=== PATIENT | male | born 1980 | race Caucasian/White ===

== ENCOUNTER 2016-08-02 17:47 | Emergency (ER) | payer OTHER ==
--- NOTE | 2016-08-02 18:17 | ED ---
General Adult HPI - General Chief complaint: Chest Pain Stated complaint: Chest Pain Time Seen by Provider: 08/02/16 17:57 Source: patient, RN notes reviewed, old records reviewed Mode of arrival: wheelchair Limitations: no limitations - History of Present Illness Initial comments: This is a 36-year-old male to the ER for evaluation.Patient presents here for evaluation of chest pain. Patient has nonspecific chest pain, history of chest pain with no history of heart disease. No high blood pressure patient does have high cholesterol and diabetes. Nonsmoker, history of having a prior prior similar event had a stress test which was negative. Patient does admit to eating cake before coming in the ER. Note sugar has been elevated. Patient denies chest pain/shortness of breath. No fever - Related Data Home Medications Medication Instructions Recorded Confirmed Albuterol Inhaler [Ventolin Hfa 2 puff INHALATION RT-Q6H PRN 05/21/15 08/02/16 Inhaler] Mometasone Inhalr 220 Mcg/Puff 1 puff INHALATION RT-DAILY 05/22/15 08/02/16 [Asmanex] Methocarbamol [Robaxin] 750 mg PO BID PRN 11/20/15 08/02/16 Naproxen [Naproxen] 500 mg PO BID PRN 11/20/15 08/02/16 metFORMIN HCL 1,000 mg PO BID 04/08/16 08/02/16 glipiZIDE [Glucotrol] 10 mg PO AC-BID 08/02/16 08/02/16 Allergies Allergy/AdvReac Type Severity Reaction Status Date / Time codeine AdvReac Nausea & Verified 08/02/16 19:08 Vomiting propoxyphene napsylate AdvReac Anaphylaxis Verified 08/02/16 19:08 [From Darvocet-N 100] Review of Systems ROS Statement: Those systems with pertinent positive or pertinent negative responses have been documented in the HPI. ROS Other: All systems not noted in ROS Statement are negative. Past Medical History Past Medical History: Asthma, Diabetes Mellitus, Hyperlipidemia, Syncope Additional Past Medical History / Comment(s): ring cut left finger and got infection of mrsa History of Any Multi-Drug Resistant Organisms: MRSA Date of last positivie culture/infection: 2007 MDRO Source:: right leg, right arm, right knee Additional Past Surgical History / Comment(s): Bilateral eye lasik, wisdom teeth , Past Psychological History: Anxiety, Depression Smoking Status: Former smoker Past Alcohol Use History: None Reported Past Drug Use History: None Reported General Exam Limitations: no limitations General appearance: alert, in no apparent distress Head exam: Present: atraumatic, normocephalic, normal inspection Eye exam: Present: normal appearance, PERRL, EOMI. Absent: scleral icterus, conjunctival injection, periorbital swelling ENT exam: Present: normal exam, mucous membranes moist Neck exam: Present: normal inspection. Absent: tenderness, meningismus, lymphadenopathy Respiratory exam: Present: normal lung sounds bilaterally. Absent: respiratory distress, wheezes, rales, rhonchi, stridor Cardiovascular Exam: Present: regular rate, normal rhythm, normal heart sounds. Absent: systolic murmur, diastolic murmur, rubs, gallop, clicks GI/Abdominal exam: Present: soft, normal bowel sounds. Absent: distended, tenderness, guarding, rebound, rigid Extremities exam: Present: normal inspection, full ROM, normal capillary refill. Absent: tenderness, pedal edema, joint swelling, calf tenderness Back exam: Present: normal inspection Neurological exam: Present: alert, oriented X3, CN II-XII intact Psychiatric exam: Present: normal affect, normal mood Skin exam: Present: warm, dry, intact, normal color. Absent: rash Course Vital Signs 08/02/16 08/02/16 17:53 18:27 Temperature 98.1 F Pulse Rate 78 74 Respiratory 20 20 Rate Blood Pressure 124/92 130/72 O2 Sat by Pulse 99 98 Oximetry - Reevaluation(s) Reevaluation #1: 08/02/16 19:41 patient denies cp at this time EKG Findings - EKG Comments: EKG Findings:: EKG shows normal sinus rhythm at 71, AR 170, QRS 102, QTC 4:30 Medical Decision Making - Medical Decision Making 36 male to the ER of the year with nonspecific chest pain. History of diabetes elevated blood sugar, sugar corrected with IV fluid at this time. No specific chest at this time. No nausea vomiting, and no shortness of breath. Patient's EKG and troponin are negative and will be discharged home - Lab Data Result diagrams: 08/02/16 18:10 08/02/16 18:10 Lab Results 08/02/16 08/02/16 08/02/16 Range/Units 18:10 18:10 18:10 WBC 6.4 (3.8-10.6) k/uL RBC 5.54 (4.30-5.90) m/uL Hgb 16.9 (13.0-17.5) gm/dL Hct 48.3 (39.0-53.0) % MCV 87.2 (80.0-100.0) fL MCH 30.5 (25.0-35.0) pg MCHC 35.0 (31.0-37.0) g/dL RDW 12.7 (11.5-15.5) % Plt Count 225 (150-450) k/uL Neutrophils % 47 % Lymphocytes % 43 % Monocytes % 5 % Eosinophils % 1 % Basophils % 1 % Neutrophils # 3.0 (1.3-7.7) k/uL Lymphocytes # 2.8 (1.0-4.8) k/uL Monocytes # 0.3 (0-1.0) k/uL Eosinophils # 0.1 (0-0.7) k/uL Basophils # 0.1 (0-0.2) k/uL PT (9.0-12.0) sec INR (<1.1) APTT (22.0-30.0) sec Sodium 138 (137-145) mmol/L Potassium 4.6 (3.5-5.1) mmol/L Chloride 101 (98-107) mmol/L Carbon Dioxide 25 (22-30) mmol/L Anion Gap 12 mmol/L BUN 13 (9-20) mg/dL Creatinine 0.80 (0.66-1.25) mg/dL Est GFR (MDRD) Af Amer >60 (>60 ml/min/1.73 sqM) Est GFR (MDRD) Non-Af >60 (>60 ml/min/1.73 sqM) Glucose 416 H (74-99) mg/dL Calcium 10.1 (8.4-10.2) mg/dL Magnesium 1.8 (1.6-2.3) mg/dL Total Bilirubin 0.9 (0.2-1.3) mg/dL AST 36 (17-59) U/L ALT 52 (21-72) U/L Alkaline Phosphatase 69 (38-126) U/L Total Creatine Kinase 53 L (55-170) U/L CK-MB (CK-2) 0.4 (0.0-2.4) ng/mL CK-MB (CK-2) Rel Index 0.8 Troponin I <0.012 (0.000-0.034) ng/mL Total Protein 7.6 (6.3-8.2) g/dL Albumin 4.3 (3.5-5.0) g/dL Lipase 174 (23-300) U/L 08/02/16 Range/Units 18:10 WBC (3.8-10.6) k/uL RBC (4.30-5.90) m/uL Hgb (13.0-17.5) gm/dL Hct (39.0-53.0) % MCV (80.0-100.0) fL MCH (25.0-35.0) pg MCHC (31.0-37.0) g/dL RDW (11.5-15.5) % Plt Count (150-450) k/uL Neutrophils % % Lymphocytes % % Monocytes % % Eosinophils % % Basophils % % Neutrophils # (1.3-7.7) k/uL Lymphocytes # (1.0-4.8) k/uL Monocytes # (0-1.0) k/uL Eosinophils # (0-0.7) k/uL Basophils # (0-0.2) k/uL PT 10.7 (9.0-12.0) sec INR 1.1 (<1.1) APTT 24.0 (22.0-30.0) sec Sodium (137-145) mmol/L Potassium (3.5-5.1) mmol/L Chloride (98-107) mmol/L Carbon Dioxide (22-30) mmol/L Anion Gap mmol/L BUN (9-20) mg/dL Creatinine (0.66-1.25) mg/dL Est GFR (MDRD) Af Amer (>60 ml/min/1.73 sqM) Est GFR (MDRD) Non-Af (>60 ml/min/1.73 sqM) Glucose (74-99) mg/dL Calcium (8.4-10.2) mg/dL Magnesium (1.6-2.3) mg/dL Total Bilirubin (0.2-1.3) mg/dL AST (17-59) U/L ALT (21-72) U/L Alkaline Phosphatase (38-126) U/L Total Creatine Kinase (55-170) U/L CK-MB (CK-2) (0.0-2.4) ng/mL CK-MB (CK-2) Rel Index Troponin I (0.000-0.034) ng/mL Total Protein (6.3-8.2) g/dL Albumin (3.5-5.0) g/dL Lipase (23-300) U/L Disposition Clinical Impression: Chest pain, Atypical chest pain, Hyperglycemia Disposition: HOME SELF-CARE Condition: Good Instructions: Chest Pain (ED), Diabetic Hyperglycemia (ED) Referrals: Rizwan Pham DO [Primary Care Provider] - 1-2 days
[2016-08-02 18:30] LABS: Basophils # (A) 0.1 k/uL (0-0.2); Basophils % (A) 1 %; CH 31.8; CHCM 36.6; Eosinophils # (A) 0.1 k/uL (0-0.7); Eosinophils % (A) 1 %; HCT 48.3 % (39.0-53.0); HDW 2.89; HGB 16.9 gm/dL (13.0-17.5); Luc # (Auto) 0.16; Luc % (Auto) 3; Lymphocytes # (A) 2.8 k/uL (1.0-4.8); Lymphocytes % (A) 43 %; MCH 30.5 pg (25.0-35.0); MCV 87.2 fL (80.0-100.0); Monocytes # (A) 0.3 k/uL (0-1.0); Monocytes % (A) 5 %; Neutrophils % (A) 47 %; RBC 5.54 m/uL (4.30-5.90); RDW 12.7 % (11.5-15.5); WBC 6.4 k/uL (3.8-10.6); WBC (Perox) 6.43
--- NOTE | 2016-08-02 18:35 | XR ---
EXAMINATION TYPE: XR chest 2V DATE OF EXAM: 08/02/2016 6:22 PM COMPARISON: Prior chest x-ray 07 August 2014 HISTORY: Chest pain, asthma TECHNIQUE: Frontal and lateral views of the chest are obtained. FINDINGS: There is no focal air space opacity, pleural effusion, or pneumothorax seen. The cardiac silhouette size is within normal limits. There are overlying cardiac leads. The osseous structures a re intact. IMPRESSION: No acute cardiopulmonary process.
[2016-08-02 18:39] LABS: ALT 52 U/L (21-72); AST 36 U/L (17-59); Alkaline Phosphatase 69 U/L (38-126); Anion Gap 12 mmol/L; Blood Urea Nitrogen 13 mg/dL (9-20); Calcium 10.1 mg/dL (8.4-10.2); Carbon Dioxide 25 mmol/L (22-30); Chloride 101 mmol/L (98-107); Glucose 416 mg/dL (74-99); INR 1.1 (<1.1); Magnesium 1.8 mg/dL (1.6-2.3); Non-African American GFR(MDRD) >60 (>60 ml/min/1.73 sqM); Potassium 4.6 mmol/L (3.5-5.1); Prothrombin Time 10.7 sec (9.0-12.0); Sodium 138 mmol/L (137-145); Total Bilirubin 0.9 mg/dL (0.2-1.3); Total Protein 7.6 g/dL (6.3-8.2)
[2016-08-02 19:09] LABS: Creatine Kinase 53 U/L (55-170)
[2016-08-02] MEDS ORDERED: SODIUM CHLORIDE 0.9% 1,000 ML IV ONE (19:17)
[2016-08-02 19:22] LABS: Creatine Kinase MB 0.4 ng/mL (0.0-2.4); Troponin I <0.012 ng/mL (0.000-0.034)
[2016-08-02 19:53] LABS: Glucose,Whole Blood 345 mg/dL (75-99)
[2016-08-02 20:09] VITALS: BP 124/62; PULSE 20; RESP 69; TEMP 97.8
== END 2016-08-02 20:09 | disposition home or self-care (01) ==
LOC: EC 17:47
DX: R07.89 Other chest pain (principal); E11.65 Type 2 diabetes mellitus with hyperglycemia; J45.909 Unspecified asthma, uncomplicated; Z87.891 Personal history of nicotine dependence; Z79.84 Long term (current) use of oral hypoglycemic drugs; Z79.51 Long term (current) use of inhaled steroids; Z88.5 Allergy status to narcotic agent
CPT/HCPCS: 36415; 71020; 80053; 82550; 82553; 83690; 83735; 84484; 85025; 85610; 85730; 93005; 96360; 99285

== ENCOUNTER 2016-08-14 08:03 | Emergency (ER) | payer OTHER ==
[2016-08-14 08:10] VITALS: BP 138/89; PULSE 59; RESP 16; TEMP 97.1
--- NOTE | 2016-08-14 08:17 | ED ---
General Adult HPI - General Chief complaint: Skin/Abscess/Foreign Body Stated complaint: neck abcess Time Seen by Provider: 08/14/16 08:11 Source: patient, RN notes reviewed Mode of arrival: ambulatory Limitations: no limitations - History of Present Illness Initial comments: 36-year-old male with significant past medical history for MRSA, who presents emergency room today with a chief complaint of a laceration to the left side of the neck. Patient revealed MRSA. States been using topical iodine a triple antibiotics over the last few days since his notices. Patient denies any other complaints or symptoms. Patient denies any recent fever, chills, shortness of breath, chest pain, back pain, abdominal pain, nausea or vomiting, numbness or tingling, dysuria or hematuria, constipation or diarrhea, headaches or visual changes, or any other complaints. - Related Data Home Medications Medication Instructions Recorded Confirmed Albuterol Inhaler [Ventolin Hfa 2 puff INHALATION RT-Q6H PRN 05/21/15 08/02/16 Inhaler] Mometasone Inhalr 220 Mcg/Puff 1 puff INHALATION RT-DAILY 05/22/15 08/02/16 [Asmanex] Methocarbamol [Robaxin] 750 mg PO BID PRN 11/20/15 08/02/16 Naproxen [Naproxen] 500 mg PO BID PRN 11/20/15 08/02/16 metFORMIN HCL 1,000 mg PO BID 04/08/16 08/02/16 glipiZIDE [Glucotrol] 10 mg PO AC-BID 08/02/16 08/02/16 Previous Rx's Medication Instructions Recorded Mupirocin 2% Oint [Bactroban Oint] 1 applic TOPICAL TID #1 gm 08/14/16 Sulfamethox-Tmp 800-160Mg [Bactrim 1 tab PO Q12HR #28 tab 08/14/16 DS 800-160 mg] Allergies Allergy/AdvReac Type Severity Reaction Status Date / Time codeine AdvReac Nausea & Verified 08/14/16 08:10 Vomiting propoxyphene napsylate AdvReac Anaphylaxis Verified 08/14/16 08:10 [From [place]zzie-N 100] Review of Systems ROS Statement: Those systems with pertinent positive or pertinent negative responses have been documented in the HPI. ROS Other: All systems not noted in ROS Statement are negative. Past Medical History Past Medical History: Asthma, Diabetes Mellitus, Hyperlipidemia, Syncope Additional Past Medical History / Comment(s): ring cut left finger and got infection of mrsa History of Any Multi-Drug Resistant Organisms: MRSA Date of last positivie culture/infection: 2007 MDRO Source:: right leg, right arm, right knee Past Surgical History: Orthopedic Surgery Additional Past Surgical History / Comment(s): Bilateral eye lasik, wisdom teeth , Past Psychological History: Anxiety, Depression Smoking Status: Former smoker Past Alcohol Use History: None Reported Past Drug Use History: None Reported General Exam - General Exam Comments Initial Comments: General: The patient is awake and alert, in no distress, and does not appear acutely ill. Eye: Pupils are equal, round and reactive to light, extra-ocular movements are intact. No nystagmus. There is normal conjunctiva bilaterally. No signs of icterus. Ears, nose, mouth and throat: There are moist mucous membranes and no oral lesions. Neck: The neck is supple, there is no tenderness or JVD. Cardiovascular: There is a regular rate and rhythm. No murmur, rub or gallop is appreciated. Respiratory: Lungs are clear to auscultation, respirations are non-labored, breath sounds are equal. No wheezes, stridor, rales, or rhonchi. Musculoskeletal: Normal ROM, no tenderness. Strength 5/5. Sensation intact. Pulses equal bilaterally 2+. Neurological: A&O x 3. CN II-XII intact, There are no obvious motor or sensory deficits. Coordination appears grossly intact. Speech is normal. Skin: Does have a 1 cm ulcerated area to the left side of the neck. No deep tissue involvement. No scabbing over top. No drainage. No significant abscess formation. Psychiatric: Cooperative, appropriate mood & affect, normal judgment. Limitations: no limitations Course Vital Signs 08/14/16 08:06 Temperature 97.1 F L Pulse Rate 59 L Respiratory 16 Rate Blood Pressure 138/89 O2 Sat by Pulse 99 Oximetry Medical Decision Making - Medical Decision Making Patient will be started on topical antibiotic due to history of MRSA will be given prescription for Bactrim. Disposition Clinical Impression: Abscess Disposition: HOME SELF-CARE Condition: Good Instructions: Abscess (ED) Additional Instructions: Please use medication as discussed. Please follow-up with family doctor in the next 2 days of symptoms have not improved. Please return to emergency room if the symptoms increase or worsen or for any other concerns. Prescriptions: Mupirocin 2% Oint [Bactroban Oint] 1 applic TOPICAL TID #1 gm Sulfamethox-Tmp 800-160Mg [Bactrim DS 800-160 mg] 1 tab PO Q12HR #28 tab Time of Disposition: 08:17
== END 2016-08-14 08:28 | disposition home or self-care (01) ==
LOC: EC 08:03
DX: L02.11 Cutaneous abscess of neck (principal); E11.9 Type 2 diabetes mellitus without complications; J45.909 Unspecified asthma, uncomplicated; Z87.891 Personal history of nicotine dependence; Z86.14 Personal history of Methicillin resistant Staphylococcus aureus infection; Z88.5 Allergy status to narcotic agent; Z79.84 Long term (current) use of oral hypoglycemic drugs; Z79.51 Long term (current) use of inhaled steroids; Z79.899 Other long term (current) drug therapy
CPT/HCPCS: 99282

== ENCOUNTER 2017-04-29 00:13 | Emergency (ER) | payer OTHER ==
[2017-04-29 00:22] VITALS: BP 141/64; PULSE 81; RESP 20; TEMP 98.2
[2017-04-29] MEDS ORDERED: AMOXIC-POT CLAV 875-125MG 1 EACH TAB PO STA (00:33)
[2017-04-29] MEDS ORDERED: IBUPROFEN 800 MG TAB PO STA (00:33)
--- NOTE | 2017-04-29 00:39 | ED ---
ENT HPI - General Chief complaint: ENT Stated complaint: rt jaw pain Time Seen by Provider: 04/29/17 00:28 Source: patient, RN notes reviewed Mode of arrival: ambulatory Limitations: no limitations - History of Present Illness Initial comments: 36-year-old male presents emergency Department chief complaint of right-sided jaw pain. Patient states it awoke him from his sleep. Patient does admit to grinding his teeth. Patient also states he has a bad tooth in the right lower region. Denies fever or chills he has had some cold like symptoms last few days. No known fevers. Patient states that he has not taken anything for the pain so far. Denies any difficulty swallow no sore throat. - Related Data Home Medications Medication Instructions Recorded Confirmed Albuterol Inhaler [Ventolin Hfa 2 puff INHALATION RT-Q6H PRN 05/21/15 04/29/17 Inhaler] Mometasone Inhalr 220 Mcg/Puff 1 puff INHALATION RT-DAILY 05/22/15 04/29/17 [Asmanex] Naproxen [Naproxen] 500 mg PO BID PRN 11/20/15 04/29/17 Insulin Aspart [NovoLOG Flexpen] 10 units SQ TID 04/29/17 04/29/17 Insulin Glargine [Lantus] 30 unit SQ HS 04/29/17 04/29/17 Previous Rx's Medication Instructions Recorded Amoxicillin/Potassium Clav 1 tab PO Q12HR #20 tab 04/29/17 [Augmentin 875-125 Tablet] Ibuprofen [Motrin] 600 mg PO Q8HR PRN #30 tab 04/29/17 Allergies Allergy/AdvReac Type Severity Reaction Status Date / Time propoxyphene napsylate Allergy Anaphylaxis Verified 04/29/17 00:22 [From Darvocet-N 100] codeine AdvReac Nausea & Verified 04/29/17 00:22 Vomiting Review of Systems ROS Statement: Those systems with pertinent positive or pertinent negative responses have been documented in the HPI. ROS Other: All systems not noted in ROS Statement are negative. Past Medical History Past Medical History: Asthma, Diabetes Mellitus, Hyperlipidemia, Syncope Additional Past Medical History / Comment(s): ring cut left finger and got infection of mrsa History of Any Multi-Drug Resistant Organisms: MRSA Date of last positivie culture/infection: 2007 MDRO Source:: right leg, right arm, right knee Past Surgical History: Orthopedic Surgery Additional Past Surgical History / Comment(s): Bilateral eye lasik, wisdom teeth , Past Psychological History: Anxiety, Depression Smoking Status: Former smoker Past Alcohol Use History: None Reported Past Drug Use History: None Reported General Exam Limitations: no limitations General appearance: alert, in no apparent distress Head exam: Present: atraumatic, normocephalic, normal inspection Eye exam: Present: normal appearance, PERRL, EOMI. Absent: scleral icterus, conjunctival injection, periorbital swelling ENT exam: Present: mucous membranes moist, TM's normal bilaterally, normal external ear exam, other (Tenderness over the right TMJ, right parotid gland region). Absent: normal oropharynx (Dental caries, dental fracture noted right lower) Neck exam: Present: normal inspection, full ROM. Absent: tenderness, meningismus, lymphadenopathy Respiratory exam: Present: normal lung sounds bilaterally. Absent: respiratory distress, wheezes, rales, rhonchi, stridor Cardiovascular Exam: Present: regular rate, normal rhythm, normal heart sounds. Absent: systolic murmur, diastolic murmur, rubs, gallop, clicks Course Vital Signs 04/29/17 00:18 Temperature 98.2 F Pulse Rate 81 Respiratory 20 Rate Blood Pressure 141/64 O2 Sat by Pulse 98 Oximetry Medical Decision Making - Medical Decision Making 36-year-old male presented for right jaw pain. Patient has has a TMJ, concerns for dental infection versus parotid gland inflammation. Patient was started on Augmentin, ibuprofen follow-up with dentist. Disposition Clinical Impression: TMJ (temporomandibular joint disorder), Sialadenitis, Dental caries Disposition: HOME SELF-CARE Condition: Stable Instructions: Temporomandibular Disorder (ED) Additional Instructions: Please return to the Emergency Department if symptoms worsen or any other concerns. Prescriptions: Amoxicillin/Potassium Clav [Augmentin 875-125 Tablet] 1 tab PO Q12HR #20 tab Ibuprofen [Motrin] 600 mg PO Q8HR PRN #30 tab PRN Reason: Pain Referrals: Rizwan Pham DO [Primary Care Provider] - 1-2 days Time of Disposition: 00:38
== END 2017-04-29 00:52 | disposition home or self-care (01) ==
LOC: EC 00:13
DX: M26.601 Right temporomandibular joint disorder, unspecified (principal); K11.20 Sialoadenitis, unspecified; K02.9 Dental caries, unspecified; J45.909 Unspecified asthma, uncomplicated; E11.9 Type 2 diabetes mellitus without complications; Z86.14 Personal history of Methicillin resistant Staphylococcus aureus infection; Z87.891 Personal history of nicotine dependence; Z79.51 Long term (current) use of inhaled steroids; Z79.4 Long term (current) use of insulin; Z88.5 Allergy status to narcotic agent
CPT/HCPCS: 99283

== ENCOUNTER 2017-11-12 17:19 | Emergency (ER) | payer OTHER ==
[2017-11-12 17:55] VITALS: BP 122/87; PULSE 96; RESP 18; TEMP 97
[2017-11-12] MEDS ORDERED: DOCUSATE ORAL SOLN 100 MG/10 ML CUP OTIC STA (18:03)
--- NOTE | 2017-11-12 18:05 | ED ---
ENT HPI - General Chief complaint: ENT Stated complaint: ear ache Time Seen by Provider: 11/12/17 17:59 Source: patient, RN notes reviewed Mode of arrival: ambulatory Limitations: no limitations - History of Present Illness Initial comments: This is a 37-year-old male who presents to the emergency department with chief complaint of right ear pain. Patient reports having right ear pain for the past 2 days. He states he feels his ear is clogged. He states that his took a look and told them that it was full of ear wax. He also reports decreased hearing. Patient denies any fevers or chills, runny nose or cough, sore throat, abdominal pain, nausea or vomiting, chest pain or shortness of breath. - Related Data Home Medications Medication Instructions Recorded Confirmed Albuterol Inhaler [Ventolin Hfa 2 puff INHALATION RT-Q6H PRN 05/21/15 04/29/17 Inhaler] Mometasone Inhalr 220 Mcg/Puff 1 puff INHALATION RT-DAILY 05/22/15 04/29/17 [Asmanex] Naproxen 500 mg PO BID PRN 11/20/15 04/29/17 Insulin Aspart [NovoLOG Flexpen] 10 units SQ TID 04/29/17 04/29/17 Insulin Glargine [Lantus] 30 unit SQ HS 04/29/17 04/29/17 Previous Rx's Medication Instructions Recorded Amoxicillin/Potassium Clav 1 tab PO Q12HR #20 tab 04/29/17 [Augmentin 875-125 Tablet] Ibuprofen [Motrin] 600 mg PO Q8HR PRN #30 tab 04/29/17 Allergies Allergy/AdvReac Type Severity Reaction Status Date / Time propoxyphene napsylate Allergy Anaphylaxis Verified 11/12/17 17:53 [From Darvocet-N 100] codeine AdvReac Nausea & Verified 11/12/17 17:53 Vomiting Review of Systems ROS Statement: Those systems with pertinent positive or pertinent negative responses have been documented in the HPI. ROS Other: All systems not noted in ROS Statement are negative. Past Medical History Past Medical History: Asthma, Diabetes Mellitus, Hyperlipidemia, Syncope Additional Past Medical History / Comment(s): ring cut left finger and got infection of mrsa History of Any Multi-Drug Resistant Organisms: MRSA Date of last positivie culture/infection: 2008 MDRO Source:: right leg, right arm, right knee Past Surgical History: Orthopedic Surgery Additional Past Surgical History / Comment(s): Bilateral eye lasik, wisdom teeth , Past Psychological History: Anxiety, Depression Smoking Status: Former smoker Past Alcohol Use History: None Reported Past Drug Use History: None Reported General Exam - General Exam Comments Initial Comments: General: Awake and alert, well-developed; in no apparent distress. HEENT: Head atraumatic, normocephalic. Pupils are equal, round and reactive to light. Extraocular movements intact. Oropharynx moist without erythema or exudate. Unable to visualize bilateral TMs due to cerumen impaction. Neck: Supple. Normal ROM. Cardiovascular: Regular rate and rhythm. No murmurs, rubs or gallops. Chest symmetrical. Respiratory: Lungs clear to auscultation bilaterally. No wheezes, rales or rhonchi. Normal respiratory effort with no use of accessory muscles. Musculoskeletal: Normal ROM, no tenderness bilateral upper and lower extremities. Ambulating normally. Skin: [place], warm and dry without rashes or lesions. Neurological: Alert and oriented x3. CN II-XII grossly intact. Speech is fluent and answers are appropriate. No focal neuro deficits. Psychiatric: Normal mood and affect. No overt signs of depression or anxiety noted. Limitations: no limitations Course Vital Signs 11/12/17 17:53 Temperature 97 F L Pulse Rate 96 Respiratory 18 Rate Blood Pressure 122/87 O2 Sat by Pulse 98 Oximetry Medical Decision Making - Medical Decision Making This is a 37-year-old male who presents to the emergency department with chief complaint of right ear pain. On physical examination, TM is completely obscured by a cerumen impaction. A small amount of Colace was placed in the ear to soften the wax. The nurse then irrigated the ear and was able to extract a large amount of cerumen. Patient reports improvement in hearing and ear pain. TM was then visualized and is normal in appearance. No erythema or bulging noted. Vital signs are stable and patient is in no acute distress. He will be discharged home at this time. He is in agreement and voices understanding. All questions were answered. Disposition Clinical Impression: Impacted cerumen of right ear Disposition: HOME SELF-CARE Condition: Good Instructions: Cerumen Impaction (ED) Additional Instructions: Please follow up with primary care provider within 1-2 days. Return to emergency department if symptoms should worsen or any concerns arise. Is patient prescribed a controlled substance at d/c from ED?: No Referrals: [facility],Clinic [Primary Care Provider] - 1-2 days Time of Disposition: 18:52
== END 2017-11-12 18:57 | disposition home or self-care (01) ==
LOC: EC 17:19
DX: H61.21 Impacted cerumen, right ear (principal); J45.909 Unspecified asthma, uncomplicated; E11.9 Type 2 diabetes mellitus without complications; Z86.14 Personal history of Methicillin resistant Staphylococcus aureus infection; Z87.891 Personal history of nicotine dependence; Z79.51 Long term (current) use of inhaled steroids; Z79.4 Long term (current) use of insulin; Z88.5 Allergy status to narcotic agent
CPT/HCPCS: 69209; 99282

== ENCOUNTER 2018-04-18 03:24 | Emergency (ER) | payer OTHER ==
[2018-04-18 03:28] VITALS: BP 133/88; PULSE 69; RESP 16; TEMP 97.9
[2018-04-18] MEDS ORDERED: CYCLOBENZAPRINE 10MG STARTER 3 TAB BTL PO STA (03:42)
[2018-04-18] MEDS ORDERED: KETOROLAC 30 MG/ML 1 ML VIAL IM STA (03:42)
--- NOTE | 2018-04-18 03:44 | ED ---
ENT HPI - General Source: patient Mode of arrival: ambulatory Limitations: no limitations <Magalie Chavira - Last Filed: 04/18/18 03:53> <Angella Stone - Last Filed: 04/19/18 09:28> - General Chief complaint: ENT Stated complaint: jaw/ear pain Time Seen by Provider: 04/18/18 03:30 - History of Present Illness Initial comments: 37-year-old male patient presents to the emergency department today for evaluation of right jaw pain is radiating into the right ear. Patient states that this woke him from sleep approximately an hour ago. Patient states that he did have similar type symptoms yesterday. Patient states he did clean his ears out but this did not seem to help. States he did take Tylenol and naproxen without relief of symptoms. He denies any dental pain or injury. Denies any fever, chills, trismus, or difficulty swallowing. Denies any history of jaw injury. Patient denies any recent rash, shortness breath, chest pain, abdominal pain, nausea, vomiting, diarrhea, constipation, back pain, numbness, tingling, dizziness, weakness, hematuria, dysuria, urinary urgency, urinary frequency, headache, visual changes, or any other complaints. (Magalie Chavira) - Related Data Home Medications Medication Instructions Recorded Confirmed Albuterol Inhaler [Ventolin Hfa 2 puff INHALATION RT-Q6H PRN 05/21/15 04/29/17 Inhaler] Mometasone Inhalr 220 Mcg/Puff 1 puff INHALATION RT-DAILY 05/22/15 04/29/17 [Asmanex] Naproxen 500 mg PO BID PRN 11/20/15 04/29/17 Insulin Aspart [NovoLOG Flexpen] 10 units SQ TID 04/29/17 04/29/17 Insulin Glargine [Lantus] 30 unit SQ HS 04/29/17 04/29/17 Previous Rx's Medication Instructions Recorded Amoxicillin/Potassium Clav 1 tab PO Q12HR #20 tab 04/29/17 [Augmentin 875-125 Tablet] Ibuprofen [Motrin] 600 mg PO Q8HR PRN #30 tab 04/29/17 Cyclobenzaprine [Flexeril] 10 mg PO TID #15 tab 04/18/18 Allergies Allergy/AdvReac Type Severity Reaction Status Date / Time propoxyphene napsylate Allergy Anaphylaxis Verified 04/18/18 03:28 [From Staciet-N 100] codeine AdvReac Nausea & Verified 04/18/18 03:28 Vomiting Review of Systems ROS Other: All systems not noted in ROS Statement are negative. <Magalie Chavira - Last Filed: 04/18/18 03:53> ROS Other: All systems not noted in ROS Statement are negative. <Angella Stone - Last Filed: 04/19/18 09:28> ROS Statement: Those systems with pertinent positive or pertinent negative responses have been documented in the HPI. Past Medical History Past Medical History: Asthma, Diabetes Mellitus, Hyperlipidemia, Syncope Additional Past Medical History / Comment(s): ring cut left finger and got infection of mrsa History of Any Multi-Drug Resistant Organisms: MRSA Date of last positivie culture/infection: 2007 MDRO Source:: right leg, right arm, right knee Past Surgical History: Orthopedic Surgery Additional Past Surgical History / Comment(s): Bilateral eye lasik, wisdom teeth , Past Psychological History: Anxiety, Depression Smoking Status: Former smoker Past Alcohol Use History: None Reported Past Drug Use History: None Reported <Magalie Chavira Robbin - Last Filed: 04/18/18 03:53> General Exam Limitations: no limitations General appearance: alert, in no apparent distress, other (Physical well- developed, well-nourished adult male patient in no acute distress. Vital signs upon presentation are temperature 97.9F, pulse 69, respirations 16, blood pressure 133/88, pulse ox 97% on room air) Eye exam: Present: normal appearance, PERRL, EOMI. Absent: scleral icterus, conjunctival injection, periorbital swelling ENT exam: Present: normal exam, normal oropharynx, mucous membranes moist, TM's normal bilaterally (Tympanic membranes are normal bilaterally with no evidence of effusion or infection.) Neck exam: Present: normal inspection, full ROM. Absent: tenderness, meningismus, lymphadenopathy Respiratory exam: Present: normal lung sounds bilaterally. Absent: respiratory distress, wheezes, rales, rhonchi, stridor Cardiovascular Exam: Present: regular rate, normal rhythm, normal heart sounds. Absent: systolic murmur, diastolic murmur, rubs, gallop, clicks Neurological exam: Present: alert, oriented X3, CN II-XII intact Psychiatric exam: Present: normal affect, normal mood Skin exam: Present: warm, dry, intact, normal color. Absent: rash <Magalie Chavira - Last Filed: 04/18/18 03:53> Vital Signs 04/18/18 03:26 Temperature 97.9 F Pulse Rate 69 Respiratory 16 Rate Blood Pressure 133/88 O2 Sat by Pulse 97 Oximetry Medical Decision Making <Magalie Chavira - Last Filed: 04/18/18 03:53> <Angella Stone - Last Filed: 04/19/18 09:28> - Medical Decision Making 37-year-old male patient presents emergency department today for evaluation of right jaw pain. Physical examination is relatively unremarkable. There is no swelling. Patient has no trismus. No lymphadenopathy. Tympanic membranes are appear normal with no evidence of effusion or infection. No mastoid tenderness. Patient symptoms are consistent with TMJ disorder. We'll treat with anti-inflammatories and muscle relaxer. He is instructed follow up with his primary care physician for further evaluation and to hospital he referred to oral surgery for further evaluation. Return parameters were discussed in detail. He verbalizes understanding and agrees with this plan. (Magalie Chavira) I was available for consultation in the emergency department. The history and physical exam were done by the midlevel provider. I was consulted for this patient's care. I reviewed the case with the midlevel provider and based on their presentation of the patient, I agree with the assessment, medical decision making and plan of care as documented. (Angella Stone) Disposition Is patient prescribed a controlled substance at d/c from ED?: No Time of Disposition: 03:44 <Magalie Chavira - Last Filed: 04/18/18 03:53> <Angella Stone - Last Filed: 04/19/18 09:28> Clinical Impression: TMJ (dislocation of temporomandibular joint) Disposition: HOME SELF-CARE Condition: Good Instructions: Temporomandibular Disorder (ED) Additional Instructions: Take medication as directed. Follow up with your primary care physician for recheck in 1-2 days. Return immediately for any new, worsening, or concerning symptoms Prescriptions: Cyclobenzaprine [Flexeril] 10 mg PO TID #15 tab Referrals: [facility],Clinic [Primary Care Provider] - 1-2 days
== END 2018-04-18 03:53 | disposition home or self-care (01) ==
LOC: EC 03:24
DX: S03.01XA Dislocation of jaw, right side, initial encounter (principal); J45.909 Unspecified asthma, uncomplicated; E11.9 Type 2 diabetes mellitus without complications; Z86.14 Personal history of Methicillin resistant Staphylococcus aureus infection; Z87.891 Personal history of nicotine dependence; Z79.4 Long term (current) use of insulin; Z79.51 Long term (current) use of inhaled steroids; Z88.5 Allergy status to narcotic agent
CPT/HCPCS: 99283; 96372; J1885

== ENCOUNTER 2018-12-07 19:57 | Emergency (ER) | payer OTHER ==
[2018-12-07 20:03] VITALS: BP 149/99; TEMP 98.3
[2018-12-07] MEDS ORDERED: IPRATROPIUM-ALBUTEROL 3 ML NEB INHALATION STA (21:09)
[2018-12-07] MEDS ORDERED: methylPREDNISolone SOD SUCCI 125 MG/2 ML VIAL IM ONE (21:12)
--- NOTE | 2018-12-07 21:19 | ED ---
SOB HPI - General Chief Complaint: Shortness of Breath Stated Complaint: Asthma Time Seen by Provider: 12/07/18 21:03 Source: patient, RN notes reviewed, old records reviewed Mode of arrival: ambulatory Limitations: no limitations - History of Present Illness Initial Comments: 38-year-old male presents with asthma exacerbation. He reports having coughing fits for the past few days. Patient reports that he has been using his albuterol inhaler and is regular steroid inhaler. Patient reports that he has had no associated chest pain. He does report some burning in his lungs with trying to take a deep breath. Patient has had no other significant complaints. - Related Data Home Medications Medication Instructions Recorded Confirmed Albuterol Inhaler [Ventolin Hfa 2 puff INHALATION RT-Q6H PRN 05/21/15 04/29/17 Inhaler] Mometasone Inhalr 220 Mcg/Puff 1 puff INHALATION RT-DAILY 05/22/15 04/29/17 [Asmanex] Naproxen 500 mg PO BID PRN 11/20/15 04/29/17 Insulin Aspart [NovoLOG Flexpen] 10 units SQ TID 04/29/17 04/29/17 Insulin Glargine [Lantus] 30 unit SQ HS 04/29/17 04/29/17 Previous Rx's Medication Instructions Recorded Amoxicillin/Potassium Clav 1 tab PO Q12HR #20 tab 04/29/17 [Augmentin 875-125 Tablet] Ibuprofen [Motrin] 600 mg PO Q8HR PRN #30 tab 04/29/17 Cyclobenzaprine [Flexeril] 10 mg PO TID #15 tab 04/18/18 predniSONE 10 mg PO DAILY #15 tab 12/07/18 Allergies Allergy/AdvReac Type Severity Reaction Status Date / Time propoxyphene napsylate Allergy Anaphylaxis Verified 12/07/18 20:03 [From Darvocet-N 100] codeine AdvReac Nausea & Verified 12/07/18 20:03 Vomiting Review of Systems ROS Statement: Those systems with pertinent positive or pertinent negative responses have been documented in the HPI. ROS Other: All systems not noted in ROS Statement are negative. Past Medical History Past Medical History: Asthma, Diabetes Mellitus, Hyperlipidemia, Syncope Additional Past Medical History / Comment(s): ring cut left finger and got infection of mrsa History of Any Multi-Drug Resistant Organisms: MRSA Date of last positivie culture/infection: 2007 MDRO Source:: right leg, right arm, right knee Past Surgical History: Orthopedic Surgery Additional Past Surgical History / Comment(s): Bilateral eye lasik, wisdom teeth, Past Psychological History: Anxiety, Depression Smoking Status: Former smoker Past Alcohol Use History: None Reported Past Drug Use History: None Reported General Exam - General Exam Comments Initial Comments: This is a 38-year-old male. Alert and oriented. No significant distress. Otherwise is well-appearing. Limitations: no limitations General appearance: alert, in no apparent distress Head exam: Present: atraumatic, normocephalic, normal inspection Eye exam: Present: normal appearance, PERRL, EOMI. Absent: scleral icterus, conjunctival injection, periorbital swelling ENT exam: Present: normal exam, mucous membranes moist Neck exam: Present: normal inspection. Absent: tenderness, meningismus, lymphadenopathy Respiratory exam: Present: normal lung sounds bilaterally, other (minimal wheezing). Absent: respiratory distress, wheezes, rales, rhonchi, stridor Cardiovascular Exam: Present: regular rate, normal rhythm, normal heart sounds. Absent: systolic murmur, diastolic murmur, rubs, gallop, clicks GI/Abdominal exam: Present: soft, normal bowel sounds. Absent: distended, tenderness, guarding, rebound, rigid Extremities exam: Present: normal inspection, full ROM, normal capillary refill. Absent: tenderness, pedal edema, joint swelling, calf tenderness Back exam: Present: normal inspection Neurological exam: Present: alert, oriented X3, CN II-XII intact Psychiatric exam: Present: normal affect, normal mood Skin exam: Present: warm, dry, intact, normal color. Absent: rash Course Vital Signs 12/07/18 12/07/18 12/07/18 20:00 21:16 21:23 Temperature 98.3 F Pulse Rate 115 H 102 H 99 Respiratory 20 Rate Blood Pressure 149/99 O2 Sat by Pulse 98 Oximetry 12/07/18 21:35 Temperature Pulse Rate Respiratory 18 Rate Blood Pressure O2 Sat by Pulse Oximetry Disposition Clinical Impression: Asthmatic bronchitis Disposition: HOME SELF-CARE Condition: Good Instructions (If sedation given, give patient instructions): Bronchospasm (ED) Additional Instructions: Patient advised to follow-up with your primary care physician. Take the steroids as prescribed continue albuterol inhaler and using her normal steroid inhaler. Return to the emergency department if any alarming signs or symptoms occur. Prescriptions: predniSONE 10 mg PO DAILY #15 tab Is patient prescribed a controlled substance at d/c from ED?: No Referrals: [facility],Clinic [Primary Care Provider] - 1-2 days
[2018-12-07 21:24] VITALS: PULSE 99
[2018-12-07 21:38] VITALS: RESP 18
--- NOTE | 2018-12-07 21:54 | XR ---
EXAMINATION TYPE: XR chest 2V DATE OF EXAM: 12/07/2018 COMPARISON: 08/02/2016 INDICATION: Pain cough TECHNIQUE: Frontal and lateral views of the chest are obtained. FINDINGS: The heart size is normal. The pulmonary vasculature is normal. The lungs are clear. IMPRESSION: 1. No acute pulmonary process.
== END 2018-12-07 22:22 | disposition home or self-care (01) ==
LOC: EC 19:57
DX: J45.909 Unspecified asthma, uncomplicated (principal); E11.9 Type 2 diabetes mellitus without complications; Z79.4 Long term (current) use of insulin; Z79.899 Other long term (current) drug therapy; Z88.5 Allergy status to narcotic agent; Z87.891 Personal history of nicotine dependence
CPT/HCPCS: 94640; 71046; 99285; 96372; J2930

== ENCOUNTER 2019-07-11 10:37 | Emergency (ER) | payer OTHER ==
[2019-07-11 10:44] LABS: Glucose,Whole Blood 512 mg/dL (75-99)
[2019-07-11] MEDS ORDERED: SODIUM CHLORIDE 0.9% 1,000 ML IV STA ×2 (11:01)
--- NOTE | 2019-07-11 11:04 | ED ---
Recheck HPI - General Chief Complaint: Recheck/Abnormal Lab/Rx Stated Complaint: high blood sugar Time Seen by Provider: 07/11/19 10:49 Source: patient, RN notes reviewed, old records reviewed Mode of arrival: ambulatory Limitations: no limitations - History of Present Illness Initial Comments: Patient is a 39-year-old male with 2 diabetic presents emergency department with elevated blood sugars. Patient reports that he drank a juice this morning, and was feeling somewhat dizzy and lightheaded. He took his blood sugar at that time wasn't to be 560. He is 24 units of fast acting iinsulin. . Rechecked his blood sugar 30 minutes afterwards and his blood sugar continued to be high at 500. Patient states that the feeling well otherwise. He denies any other significant symptoms. He called his PCP for recommendations is for him to come to the emergency room. - Related Data Home Medications Medication Instructions Recorded Confirmed Albuterol Inhaler [Ventolin Hfa 2 puff INHALATION RT-Q6H PRN 05/21/15 04/29/17 Inhaler] Mometasone Inhalr 220 Mcg/Puff 1 puff INHALATION RT-DAILY 05/22/15 04/29/17 [Asmanex] Naproxen 500 mg PO BID PRN 11/20/15 04/29/17 Insulin Aspart [NovoLOG Flexpen] 10 units SQ TID 04/29/17 04/29/17 Insulin Glargine [Lantus] 30 unit SQ HS 04/29/17 04/29/17 Previous Rx's Medication Instructions Recorded Amoxicillin/Potassium Clav 1 tab PO Q12HR #20 tab 04/29/17 [Augmentin 875-125 Tablet] Ibuprofen [Motrin] 600 mg PO Q8HR PRN #30 tab 04/29/17 Cyclobenzaprine [Flexeril] 10 mg PO TID #15 tab 04/18/18 Albuterol Inhaler [Ventolin Hfa 1 - 2 puff INHALATION RT-Q6H PRN 12/07/18 Inhaler] #1 inhaler predniSONE 10 mg PO DAILY #15 tab 12/07/18 Allergies Allergy/AdvReac Type Severity Reaction Status Date / Time propoxyphene napsylate Allergy Anaphylaxis Verified 12/07/18 20:03 [From Darvocet-N 100] codeine AdvReac Nausea & Verified 12/07/18 20:03 Vomiting Review of Systems ROS Statement: Those systems with pertinent positive or pertinent negative responses have been documented in the HPI. ROS Other: All systems not noted in ROS Statement are negative. Past Medical History Past Medical History: Asthma, Diabetes Mellitus, Hyperlipidemia, Syncope Additional Past Medical History / Comment(s): ring cut left finger and got infection of mrsa History of Any Multi-Drug Resistant Organisms: MRSA Date of last positivie culture/infection: 2007 MDRO Source:: right leg, right arm, right knee Past Surgical History: Orthopedic Surgery Additional Past Surgical History / Comment(s): Bilateral eye lasik, wisdom teeth, Past Psychological History: Anxiety, Depression Smoking Status: Former smoker Past Alcohol Use History: None Reported Past Drug Use History: None Reported General Exam - General Exam Comments Initial Comments: 39-year-old male. Alert and oriented. No distress. Limitations: no limitations Head exam: Present: atraumatic, normocephalic, normal inspection Eye exam: Present: normal appearance, PERRL, EOMI. Absent: scleral icterus, conjunctival injection, periorbital swelling ENT exam: Present: normal exam, mucous membranes moist Neck exam: Present: normal inspection. Absent: tenderness, meningismus, l ymphadenopathy Respiratory exam: Present: normal lung sounds bilaterally. Absent: respiratory distress, wheezes, rales, rhonchi, stridor Cardiovascular Exam: Present: regular rate, normal rhythm, normal heart sounds. Absent: systolic murmur, diastolic murmur, rubs, gallop, clicks GI/Abdominal exam: Present: soft, normal bowel sounds. Absent: distended, tenderness, guarding, rebound, rigid Extremities exam: Present: normal inspection, full ROM, normal capillary refill. Absent: tenderness, pedal edema, joint swelling, calf tenderness Back exam: Present: normal inspection Neurological exam: Present: alert, oriented X3, CN II-XII intact Psychiatric exam: Present: normal affect, normal mood Skin exam: Present: warm, dry, intact, normal color. Absent: rash Course Vital Signs 07/11/19 10:39 Temperature 98.8 F Pulse Rate 93 Respiratory 17 Rate Blood Pressure 147/95 O2 Sat by Pulse 99 Oximetry Medical Decision Making - Medical Decision Making 39-year-old male presents today for elevated blood sugar after drinking juice today. He reports that he doses NovoLog however his blood sugar continues to be up at 500. Patient was given IV fluids labwork obtained. Blood work was reviewed and unremarkable besides elevated blood sugar of 520. He is given 8 units of insulin and saline bolus. Blood sugar was rechecked and is now 376. Given a subsequent 6 units. I discussed the Patient has no other symptoms at this time to manage the blood sugar with sliding scale. Discussed following up with his primary care doctor. All questions answered. - Lab Data Result diagrams: 07/11/19 11:13 07/11/19 11:13 Lab Results 07/11/19 07/11/19 07/11/19 Range/Units 10:42 11:13 11:13 WBC 6.5 (3.8-10.6) k/uL RBC 5.45 (4.30-5.90) m/uL Hgb 16.9 (13.0-17.5) gm/dL Hct 46.8 (39.0-53.0) % MCV 85.8 (80.0-100.0) fL MCH 31.0 (25.0-35.0) pg MCHC 36.1 (31.0-37.0) g/dL RDW 12.7 (11.5-15.5) % Plt Count 237 (150-450) k/uL Neutrophils % 60 % Lymphocytes % 31 % Monocytes % 5 % Eosinophils % 2 % Basophils % 1 % Neutrophils # 3.9 (1.3-7.7) k/uL Lymphocytes # 2.0 (1.0-4.8) k/uL Monocytes # 0.3 (0-1.0) k/uL Eosinophils # 0.1 (0-0.7) k/uL Basophils # 0.0 (0-0.2) k/uL PT 9.7 (9.0-12.0) sec INR 0.9 (<1.2) APTT 22.7 (22.0-30.0) sec Sodium (137-145) mmol/L Potassium (3.5-5.1) mmol/L Chloride (98-107) mmol/L Carbon Dioxide (22-30) mmol/L Anion Gap mmol/L BUN (9-20) mg/dL Creatinine (0.66-1.25) mg/dL Est GFR (CKD-EPI)AfAm (>60 ml/min/1.73 sqM) Est GFR (CKD-EPI)NonAf (>60 ml/min/1.73 sqM) Glucose (74-99) mg/dL POC Glucose (mg/dL) 512 H (75-99) mg/dL POC Glu Tankerman Russell Sue Plasma Lactic Acid Rafael (0.7-2.0) mmol/L Calcium (8.4-10.2) mg/dL Total Bilirubin (0.2-1.3) mg/dL AST (17-59) U/L ALT (4-49) U/L Alkaline Phosphatase (38-126) U/L Total Protein (6.3-8.2) g/dL Albumin (3.5-5.0) g/dL Amylase (30-110) U/L Lipase (23-300) U/L Urine Color Urine Appearance (Clear) Urine pH (5.0-8.0) Ur Specific Lincoln (1.001-1.035) Urine Protein (Negative) Urine Glucose (UA) (Negative) Urine Ketones (Negative) Urine Blood (Negative) Urine Nitrite (Negative) Urine Bilirubin (Negative) Urine Urobilinogen (<2.0) mg/dL Ur Leukocyte Esterase (Negative) Acetone, Qual (Negative) 07/11/19 07/11/19 07/11/19 Range/Units 11:13 11:13 11:13 WBC (3.8-10.6) k/uL RBC (4.30-5.90) m/uL Hgb (13.0-17.5) gm/dL Hct (39.0-53.0) % MCV (80.0-100.0) fL MCH (25.0-35.0) pg MCHC (31.0-37.0) g/dL RDW (11.5-15.5) % Plt Count (150-450) k/uL Neutrophils % % Lymphocytes % % Monocytes % % Eosinophils % % Basophils % % Neutrophils # (1.3-7.7) k/uL Lymphocytes # (1.0-4.8) k/uL Monocytes # (0-1.0) k/uL Eosinophils # (0-0.7) k/uL Basophils # (0-0.2) k/uL PT (9.0-12.0) sec INR (<1.2) APTT (22.0-30.0) sec Sodium 132 L (137-145) mmol/L Potassium 4.5 (3.5-5.1) mmol/L Chloride 99 (98-107) mmol/L Carbon Dioxide 24 (22-30) mmol/L Anion Gap 9 mmol/L BUN 14 (9-20) mg/dL Creatinine 0.70 (0.66-1.25) mg/dL Est GFR (CKD-EPI)AfAm >90 (>60 ml/min/1.73 sqM) Est GFR (CKD-EPI)NonAf >90 (>60 ml/min/1.73 sqM) Glucose 525 H* (74-99) mg/dL POC Glucose (mg/dL) (75-99) mg/dL POC Glu Tankerman ID Plasma Lactic Acid Rafael 1.3 (0.7-2.0) mmol/L Calcium 9.3 (8.4-10.2) mg/dL Total Bilirubin 0.5 (0.2-1.3) mg/dL AST 28 (17-59) U/L ALT 46 (4-49) U/L Alkaline Phosphatase 99 (38-126) U/L Total Protein 7.3 (6.3-8.2) g/dL Albumin 4.4 (3.5-5.0) g/dL Amylase 47 (30-110) U/L Lipase 101 (23-300) U/L Urine Color Light Yellow Urine Appearance Clear (Clear) Urine pH 5.0 (5.0-8.0) Ur Specific Lincoln 1.041 H (1.001-1.035) Urine Protein Negative (Negative) Urine Glucose (UA) 4+ H (Negative) Urine Ketones 1+ H (Negative) Urine Blood Negative (Negative) Urine Nitrite Negative (Negative) Urine Bilirubin Negative (Negative) Urine Urobilinogen <2.0 (<2.0) mg/dL Ur Leukocyte Esterase Negative (Negative) Acetone, Qual Negative (Negative) Disposition Clinical Impression: Hyperglycemia due to diabetes mellitus Disposition: HOME SELF-CARE Condition: Good Instructions (If sedation given, give patient instructions): Diabetic Hype rglycemia (ED), Insulin Scale A (MPH) Additional Instructions: Adjust your sliding scale as directed. Follow-up with her primary care doctor. Return to the ED if any alarming signs or symptoms occur. Is patient prescribed a controlled substance at d/c from ED?: No Referrals: Rizwan Pham DO [Doctor of Osteopathic Medicine] - 1-2 days Time of Disposition: 13:06
[2019-07-11 11:34] LABS: ALT 46 U/L (4-49); AST 28 U/L (17-59); African American GFR (CKD) >90 (>60 ml/min/1.73 sqM); Albumin 4.4 g/dL (3.5-5.0); Blood Urea Nitrogen 14 mg/dL (9-20); Chloride 99 mmol/L (98-107); Non-African American GFR(CKD) >90 (>60 ml/min/1.73 sqM); Potassium 4.5 mmol/L (3.5-5.1); Total Bilirubin 0.5 mg/dL (0.2-1.3); Total Protein 7.3 g/dL (6.3-8.2)
[2019-07-11 11:39] LABS: Basophils % (A) 1 %; Eosinophils # (A) 0.1 k/uL (0-0.7); Eosinophils % (A) 2 %; HCT 46.8 % (39.0-53.0); HGB 16.9 gm/dL (13.0-17.5); Lymphocytes % (A) 31 %; MCHC 36.1 g/dL (31.0-37.0); MCV 85.8 fL (80.0-100.0); Mean Platelet Volume 10.4; Monocytes # (A) 0.3 k/uL (0-1.0); Monocytes % (A) 5 %; Neutrophils # (A) 3.9 k/uL (1.3-7.7); Neutrophils % (A) 60 %; Platelet Count 237 k/uL (150-450); RBC 5.45 m/uL (4.30-5.90); RDW 12.7 % (11.5-15.5); WBC 6.5 k/uL (3.8-10.6)
[2019-07-11 11:45] LABS: Alkaline Phosphatase 99 U/L (38-126); Amylase 47 U/L (30-110); Anion Gap 9 mmol/L; Calcium 9.3 mg/dL (8.4-10.2); Carbon Dioxide 24 mmol/L (22-30); INR 0.9 (<1.2); Partial Thromboplastin Time 22.7 sec (22.0-30.0); Prothrombin Time 9.7 sec (9.0-12.0); Sodium 132 mmol/L (137-145)
[2019-07-11] MEDS ORDERED: INSULIN REGULAR 100 UNIT/ML VIAL IV ONE ×2 (11:45→12:41)
[2019-07-11 11:51] LABS: Appearance,Urine Clear (Clear); Bilirubin,Urine Negative (Negative); Blood,Urine Negative (Negative); Color,Urine Light Yellow; Glucose,Urine (UA) 4+ (Negative); Ketones,Urine 1+ (Negative); Leukocyte Esterase,Urine Negative (Negative); Nitrite,Urine Negative (Negative); Protein,Urine Negative (Negative); Specific Gravity,Urine 1.041 (1.001-1.035); Urobilinogen,Urine <2.0 mg/dL (<2.0)
[2019-07-11 12:01] LABS: Glucose 525 mg/dL (74-99)
[2019-07-11 13:08] LABS: Glucose,Whole Blood 378 mg/dL (75-99)
[2019-07-11 13:17] VITALS: BP 136/76; PULSE 87; RESP 16; TEMP 98.5
== END 2019-07-11 13:15 | disposition home or self-care (01) ==
LOC: EC 10:37
DX: E11.65 Type 2 diabetes mellitus with hyperglycemia (principal); J45.909 Unspecified asthma, uncomplicated; Z79.4 Long term (current) use of insulin; Z79.51 Long term (current) use of inhaled steroids; Z88.5 Allergy status to narcotic agent; Z87.891 Personal history of nicotine dependence; Z86.14 Personal history of Methicillin resistant Staphylococcus aureus infection
CPT/HCPCS: 36415; 80053; 81003; 82009; 82150; 83605; 83690; 85025; 85610; 85730; 96360; 96361; 99285

== ENCOUNTER 2019-10-09 05:21 | Emergency (ER) | payer OTHER ==
[2019-10-09 05:29] VITALS: TEMP 98.4
[2019-10-09] MEDS ORDERED: ONDANSETRON 4 MG/2 ML VIAL IVP STA (05:33)
[2019-10-09] MEDS ORDERED: KETOROLAC 30 MG/ML 1 ML VIAL IVP STA (05:33)
--- NOTE | 2019-10-09 05:35 | ED ---
Weakness HPI - General Chief complaint: Headache Stated complaint: Headache, Nausea, SOB Time Seen by Provider: 10/09/19 05:31 Source: patient, RN notes reviewed, old records reviewed Mode of arrival: ambulatory Limitations: no limitations - History of Present Illness Initial comments: This is a 39-year-old male DF for evaluation. Patient has a for evaluation of not feeling well nausea vomiting abdominal pain he believes his had a fever he thinks he is coronavirus. No travel history or sick contacts. Symptoms are persistent. Patient again denies any chest pain or shortness of breath, no drugs or alcohol abuse MD Complaint: generalized weakness -: days(s) Location: generalized Severity: moderate Consistency: constant Improves with: none Worsens with: none Context: recent illness Associated Symptoms: loss of appetite, nausea/vomiting - Related Data Home Medications Medication Instructions Recorded Confirmed Albuterol Inhaler (Mhu) [Ventolin 2 puff INHALATION RT-Q6H PRN 05/21/15 04/29/17 Hfa Inhaler (Mhu)] Mometasone Inhalr 220 Mcg/Puff 1 puff INHALATION RT-DAILY 05/22/15 04/29/17 [Asmanex] Naproxen 500 mg PO BID PRN 11/20/15 04/29/17 Insulin Aspart [NovoLOG Flexpen] 10 units SQ TID 04/29/17 04/29/17 Insulin Glargine [Lantus] 30 unit SQ HS 04/29/17 04/29/17 Previous Rx's Medication Instructions Recorded Amoxicillin/Potassium Clav 1 tab PO Q12HR #20 tab 04/29/17 [Augmentin 875-125 Tablet] Ibuprofen [Motrin] 600 mg PO Q8HR PRN #30 tab 04/29/17 Cyclobenzaprine [Flexeril] 10 mg PO TID #15 tab 04/18/18 Albuterol Inhaler (Mhu) [Ventolin 1 - 2 puff INHALATION RT-Q6H PRN 12/07/18 Hfa Inhaler (Mhu)] #1 inhaler predniSONE 10 mg PO DAILY #15 tab 12/07/18 Allergies Allergy/AdvReac Type Severity Reaction Status Date / Time propoxyphene napsylate Allergy Anaphylaxis Verified 10/09/19 05:29 [From Dariramcet-N 100] codeine AdvReac Nausea & Verified 10/09/19 05:29 Vomiting Review of Systems ROS Statement: Those systems with pertinent positive or pertinent negative responses have been documented in the HPI. ROS Other: All systems not noted in ROS Statement are negative. Past Medical History Past Medical History: Asthma, Diabetes Mellitus, Hyperlipidemia, Syncope Additional Past Medical History / Comment(s): ring cut left finger and got infection of mrsa History of Any Multi-Drug Resistant Organisms: MRSA Date of last positivie culture/infection: 2007 MDRO Source:: right leg, right arm, right knee Past Surgical History: Orthopedic Surgery Additional Past Surgical History / Comment(s): Bilateral eye lasik, wisdom teeth, Past Psychological History: Anxiety, Depression Smoking Status: Former smoker Past Alcohol Use History: None Reported Past Drug Use History: None Reported General Exam Limitations: no limitations General appearance: alert, in no apparent distress Head exam: Present: atraumatic, normocephalic, normal inspection Eye exam: Present: normal appearance, PERRL, EOMI. Absent: scleral icterus, conjunctival injection, periorbital swelling ENT exam: Present: normal exam, mucous membranes moist Neck exam: Present: normal inspection. Absent: tenderness, meningismus, lymphadenopathy Respiratory exam: Present: normal lung sounds bilaterally. Absent: respiratory distress, wheezes, rales, rhonchi, stridor Cardiovascular Exam: Present: regular rate, normal rhythm, normal heart sounds. Absent: systolic murmur, diastolic murmur, rubs, gallop, clicks GI/Abdominal exam: Present: soft, normal bowel sounds. Absent: distended, tenderness, guarding, rebound, rigid Extremities exam: Present: normal inspection, full ROM, normal capillary refill. Absent: tenderness, pedal edema, joint swelling, calf tenderness Back exam: Present: normal inspection Neurological exam: Present: alert, oriented X3, CN II-XII intact Psychiatric exam: Present: normal affect, normal mood Skin exam: Present: warm, dry, intact, normal color. Absent: rash Course Vital Signs 10/09/19 10/09/19 10/09/19 05:24 06:46 07:04 Temperature 98.4 F 98.4 F Pulse Rate 84 82 89 Respiratory 20 16 16 Rate Blood Pressure 151/100 124/81 130/89 O2 Sat by Pulse 98 98 98 Oximetry - Reevaluation(s) Reevaluation #1: Medical record is reviewed Is improved EKG Findings - EKG Comments: EKG Findings:: EKG is sinus rhythm 70, UT 174, QRS 104, QTc 440 Medical Decision Making - Medical Decision Making 39-year-old male DF for evaluation of headache nausea vomiting concern for Kovic. Patient is tested for covert symptoms are improved no acute findings found on testing. Patient can be discharged - Lab Data Result diagrams: 10/09/19 05:47 10/09/19 05:47 Lab Results 10/09/19 10/09/19 10/09/19 Range/Units 05:47 05:47 05:47 WBC 6.6 (3.8-10.6) k/uL RBC 5.63 (4.30-5.90) m/uL Hgb 16.5 (13.0-17.5) gm/dL Hct 50.1 (39.0-53.0) % MCV 89.1 (80.0-100.0) fL MCH 29.4 (25.0-35.0) pg MCHC 33.0 (31.0-37.0) g/dL RDW 12.9 (11.5-15.5) % Plt Count 261 (150-450) k/uL Neutrophils % 49 % Lymphocytes % 42 % Monocytes % 6 % Eosinophils % 2 % Basophils % 1 % Neutrophils # 3.2 (1.3-7.7) k/uL Lymphocytes # 2.7 (1.0-4.8) k/uL Monocytes # 0.4 (0-1.0) k/uL Eosinophils # 0.1 (0-0.7) k/uL Basophils # 0.0 (0-0.2) k/uL PT 9.7 (9.0-12.0) sec INR 0.9 (<1.2) APTT 23.3 (22.0-30.0) sec Sodium 136 L (137-145) mmol/L Potassium 4.5 (3.5-5.1) mmol/L Chloride 100 (98-107) mmol/L Carbon Dioxide 27 (22-30) mmol/L Anion Gap 9 mmol/L BUN 13 (9-20) mg/dL Creatinine 0.92 (0.66-1.25) mg/dL Est GFR (CKD-EPI)AfAm >90 (>60 ml/min/1.73 sqM) Est GFR (CKD-EPI)NonAf >90 (>60 ml/min/1.73 sqM) Glucose 474 H (74-99) mg/dL Plasma Lactic Acid Rafael (0.7-2.0) mmol/L Calcium 9.9 (8.4-10.2) mg/dL Magnesium 1.5 L (1.6-2.3) mg/dL Ferritin 271.9 (22.0-322.0) ng/mL Total Bilirubin 0.6 (0.2-1.3) mg/dL AST 30 (17-59) U/L ALT 45 (4-49) U/L Alkaline Phosphatase 84 (38-126) U/L Lactate Dehydrogenase 365 (313-618) U/L C-Reactive Protein 15.5 H (<10.0) mg/L Total Protein 6.8 (6.3-8.2) g/dL Albumin 4.1 (3.5-5.0) g/dL Procalcitonin (0.02-0.09) ng/mL Coronavirus (PCR) (Not Detected) 10/09/19 10/09/19 10/09/19 Range/Units 05:47 05:47 05:47 WBC (3.8-10.6) k/uL RBC (4.30-5.90) m/uL Hgb (13.0-17.5) gm/dL Hct (39.0-53.0) % MCV (80.0-100.0) fL MCH (25.0-35.0) pg MCHC (31.0-37.0) g/dL RDW (11.5-15.5) % Plt Count (150-450) k/uL Neutrophils % % Lymphocytes % % Monocytes % % Eosinophils % % Basophils % % Neutrophils # (1.3-7.7) k/uL Lymphocytes # (1.0-4.8) k/uL Monocytes # (0-1.0) k/uL Eosinophils # (0-0.7) k/uL Basophils # (0-0.2) k/uL PT (9.0-12.0) sec INR (<1.2) APTT (22.0-30.0) sec Sodium (137-145) mmol/L Potassium (3.5-5.1) mmol/L Chloride (98-107) mmol/L Carbon Dioxide (22-30) mmol/L Anion Gap mmol/L BUN (9-20) mg/dL Creatinine (0.66-1.25) mg/dL Est GFR (CKD-EPI)AfAm (>60 ml/min/1.73 sqM) Est GFR (CKD-EPI)NonAf (>60 ml/min/1.73 sqM) Glucose (74-99) mg/dL Plasma Lactic Acid Rafael 1.6 (0.7-2.0) mmol/L Calcium (8.4-10.2) mg/dL Magnesium (1.6-2.3) mg/dL Ferritin (22.0-322.0) ng/mL Total Bilirubin (0.2-1.3) mg/dL AST (17-59) U/L ALT (4-49) U/L Alkaline Phosphatase (38-126) U/L Lactate Dehydrogenase (313-618) U/L C-Reactive Protein (<10.0) mg/L Total Protein (6.3-8.2) g/dL Albumin (3.5-5.0) g/dL Procalcitonin 0.05 (0.02-0.09) ng/mL Coronavirus (PCR) Not Detected (Not Detected) - Radiology Data Radiology results: report reviewed (Chest x-rays negative for acute disease), image reviewed Disposition Clinical Impression: Nausea & vomiting, Viral syndrome, Weakness Disposition: HOME SELF-CARE Condition: Good Instructions (If sedation given, give patient instructions): Acute Nausea and Vomiting (ED), Viral Syndrome (ED) Is patient prescribed a controlled substance at d/c from ED?: No Referrals: [facility] [Primary Care Provider] - 1-2 days
[2019-10-09 06:23] LABS: INR 0.9 (<1.2); Partial Thromboplastin Time 23.3 sec (22.0-30.0); Prothrombin Time 9.7 sec (9.0-12.0)
[2019-10-09 06:47] VITALS: RESP 16
--- NOTE | 2019-10-09 06:47 | XR ---
EXAM: XR Chest, 1 View CLINICAL HISTORY: Suspected COVID-19 pneumonia TECHNIQUE: Frontal view of the chest. COMPARISON: 12/07/2018 FINDINGS: Lungs: Unremarkable. No consolidation. Unchanged from prior study. Pleural space: Unremarkable. No pneumothorax. Heart: Unremarkable. No cardiomegaly. Mediastinum: Unremarkable. Bones/joints: Unremarkable. IMPRESSION: No radiographic evidence of acute cardiopulmonary process, allowing for portable technique, without significant interval change.
[2019-10-09 06:52] LABS: Basophils % (A) 1 %; Eosinophils # (A) 0.1 k/uL (0-0.7); Eosinophils % (A) 2 %; HCT 50.1 % (39.0-53.0); HGB 16.5 gm/dL (13.0-17.5); Lymphocytes # (A) 2.7 k/uL (1.0-4.8); Lymphocytes % (A) 42 %; MCH 29.4 pg (25.0-35.0); MCV 89.1 fL (80.0-100.0); Mean Platelet Volume 10.1; Monocytes # (A) 0.4 k/uL (0-1.0); Monocytes % (A) 6 %; Neutrophils # (A) 3.2 k/uL (1.3-7.7); Neutrophils % (A) 49 %; Platelet Count 261 k/uL (150-450); RBC 5.63 m/uL (4.30-5.90); RDW 12.9 % (11.5-15.5); WBC 6.6 k/uL (3.8-10.6)
[2019-10-09 07:03] LABS: ALT 45 U/L (4-49); AST 30 U/L (17-59); African American GFR (CKD) >90 (>60 ml/min/1.73 sqM); Albumin 4.1 g/dL (3.5-5.0); Alkaline Phosphatase 84 U/L (38-126); Anion Gap 9 mmol/L; Blood Urea Nitrogen 13 mg/dL (9-20); C Reactive Protein 15.5 mg/L (<10.0); Calcium 9.9 mg/dL (8.4-10.2); Carbon Dioxide 27 mmol/L (22-30); Chloride 100 mmol/L (98-107); Glucose 474 mg/dL (74-99); LDH 365 U/L (313-618); Magnesium 1.5 mg/dL (1.6-2.3); Non-African American GFR(CKD) >90 (>60 ml/min/1.73 sqM); Potassium 4.5 mmol/L (3.5-5.1); Sodium 136 mmol/L (137-145); Total Bilirubin 0.6 mg/dL (0.2-1.3); Total Protein 6.8 g/dL (6.3-8.2)
[2019-10-09 07:06] VITALS: BP 130/89; PULSE 89
[2019-10-09 11:51] LABS: Ferritin 271.9 ng/mL (22.0-322.0)
== END 2019-10-09 07:06 | disposition home or self-care (01) ==
LOC: EC 05:21
DX: B34.9 Viral infection, unspecified (principal); R53.1 Weakness; J45.909 Unspecified asthma, uncomplicated; E11.9 Type 2 diabetes mellitus without complications; Z79.4 Long term (current) use of insulin; Z79.51 Long term (current) use of inhaled steroids; Z88.5 Allergy status to narcotic agent; Z88.8 Allergy status to other drugs, medicaments and biological substances; Z86.14 Personal history of Methicillin resistant Staphylococcus aureus infection; Z87.891 Personal history of nicotine dependence; Z20.828 Contact with and (suspected) exposure to other viral communicable diseases
CPT/HCPCS: 36415; 93005; 80053; 82728; 83605; 83615; 83735; 85025; 85610; 85730; 86140; 87040; 84145; 71045; 99284; 96374; 96375; U0003; J2405; J1885

== ENCOUNTER 2020-01-02 23:06 | Emergency (ER) | payer OTHER ==
[2020-01-02 23:15] VITALS: TEMP 98.3
[2020-01-02] MEDS ORDERED: DICYCLOMINE 10 MG/ML 2 ML AMP IM STA (23:25)
[2020-01-02] MEDS ORDERED: SODIUM CHLORIDE 0.9% 1,000 ML IV STA (23:25)
[2020-01-02] MEDS ORDERED: ONDANSETRON 4 MG/2 ML VIAL IVP STA (23:25)
--- NOTE | 2020-01-02 23:57 | ED ---
Nausea/Vomiting/Diarrhea HPI - General Chief complaint: Nausea/Vomiting/Diarrhea Stated complaint: diarrhea, vomiting Time Seen by Provider: 01/02/20 23:19 Source: patient Mode of arrival: wheelchair Limitations: no limitations - History of Present Illness Initial comments: 39-year-old male patient presents to the emergency department today for evaluation of vomiting and diarrhea. Patient states he started earlier in the day with frequent diarrhea and then around 10:15 this evening started having vomiting. States he's had several episodes of vomiting since decided to come in for evaluation. Patient states that he is having some generalized abdominal discomfort and cramping. Denies any fever but states he has been chilled. He denies any hematochezia, melena, hematemesis. Denies any recent travel or sick contacts. Patient denies history of abdominal surgery. Patient states he has taken Rolaids without relief of symptoms. Denies any other medication use. Patient denies any recent rash, cough, shortness of breath, chest pain, constipation, back pain, numbness, tingling, dizziness, weakness, hematuria, dysuria, urinary urgency, urinary frequency, headache, visual changes, or any other complaints. - Related Data Home Medications Medication Instructions Recorded Confirmed Albuterol Inhaler (Mhu) [Ventolin 2 puff INHALATION RT-Q6H PRN 05/21/15 04/29/17 Hfa Inhaler (Mhu)] Mometasone Inhalr 220 Mcg/Puff 1 puff INHALATION RT-DAILY 05/22/15 04/29/17 [Asmanex] Naproxen 500 mg PO BID PRN 11/20/15 04/29/17 Insulin Aspart [NovoLOG Flexpen] 10 units SQ TID 04/29/17 04/29/17 Insulin Glargine [Lantus] 30 unit SQ HS 04/29/17 04/29/17 Previous Rx's Medication Instructions Recorded Amoxicillin/Potassium Clav 1 tab PO Q12HR #20 tab 04/29/17 [Augmentin 875-125 Tablet] Ibuprofen [Motrin] 600 mg PO Q8HR PRN #30 tab 04/29/17 Cyclobenzaprine [Flexeril] 10 mg PO TID #15 tab 04/18/18 Albuterol Inhaler (Mhu) [Ventolin 1 - 2 puff INHALATION RT-Q6H PRN 12/07/18 Hfa Inhaler (Mhu)] #1 inhaler predniSONE 10 mg PO DAILY #15 tab 12/07/18 Allergies Allergy/AdvReac Type Severity Reaction Status Date / Time propoxyphene napsylate Allergy Anaphylaxis Verified 01/02/20 23:15 [From Darvocet-N 100] codeine AdvReac Nausea & Verified 01/02/20 23:15 Vomiting Review of Systems ROS Statement: Those systems with pertinent positive or pertinent negative responses have been documented in the HPI. ROS Other: All systems not noted in ROS Statement are negative. Past Medical History Past Medical History: Asthma, Diabetes Mellitus, Hyperlipidemia, Syncope Additional Past Medical History / Comment(s): ring cut left finger and got infection of mrsa History of Any Multi-Drug Resistant Organisms: MRSA Date of last positivie culture/infection: 2007 MDRO Source:: right leg, right arm, right knee Past Surgical History: Orthopedic Surgery Additional Past Surgical History / Comment(s): Bilateral eye lasik, wisdom teeth, Past Psychological History: Anxiety, Depression Smoking Status: Never smoker Past Alcohol Use History: None Reported Past Drug Use History: None Reported General Exam Limitations: no limitations General appearance: alert, in no apparent distress, other (This is a well- developed, well-nourished adult male patient in no acute distress. Vital signs upon presentation are temperature 98.3F, pulse 84, respirations 18, blood pressure 127/88, pulse ox 97% on room air.) ENT exam: Present: normal exam, normal oropharynx, mucous membranes moist Respiratory exam: Present: normal lung sounds bilaterally. Absent: respiratory distress, wheezes, rales, rhonchi, stridor Cardiovascular Exam: Present: regular rate, normal rhythm, normal heart sounds. Absent: systolic murmur, diastolic murmur, rubs, gallop, clicks GI/Abdominal exam: Present: soft, normal bowel sounds. Absent: distended, tenderness, guarding, rebound, rigid Neurological exam: Present: alert, oriented X3, CN II-XII intact Psychiatric exam: Present: normal affect, normal mood Skin exam: Present: warm, dry, intact, normal color. Absent: rash Course Vital Signs 01/02/20 01/03/20 23:10 00:51 Temperature 98.3 F Pulse Rate 84 92 Respiratory 18 16 Rate Blood Pressure 127/88 125/75 O2 Sat by Pulse 97 100 Oximetry Medical Decision Making - Medical Decision Making 39-year-old male patient presents to the emergency department today for evaluation of vomiting and diarrhea both symptoms started today. Denies fever or chills. Physical examination is unremarkable. Abdomen is soft and nontender. He denied any hematochezia, melena, or hematemesis. Labs reviewed and are unremarkable. Normal white blood cell, and he is afebrile normal vital signs. Patient was given IV fluids and antiemetics here in the emergency department. Upon reevaluation he is resting comfortably in bed. He denies any further episodes of vomiting. He will be discharged with Zofran. Instructions to follow-up with his primary care physician for recheck in 1-2 days. Return parameters discussed in detail. He verbalizes understanding and agrees with this plan. - Lab Data Result diagrams: 01/03/20 00:15 01/03/20 00:15 Lab Results 01/03/20 01/03/20 01/03/20 Range/Units 00:15 00:15 00:15 WBC 10.3 (3.8-10.6) k/uL RBC 6.01 H (4.30-5.90) m/uL Hgb 17.5 (13.0-17.5) gm/dL Hct 52.3 (39.0-53.0) % MCV 87.0 (80.0-100.0) fL MCH 29.1 (25.0-35.0) pg MCHC 33.4 (31.0-37.0) g/dL RDW 12.7 (11.5-15.5) % Plt Count 283 (150-450) k/uL Neutrophils % 68 % Lymphocytes % 21 % Monocytes % 7 % Eosinophils % 2 % Basophils % 1 % Neutrophils # 7.1 (1.3-7.7) k/uL Lymphocytes # 2.2 (1.0-4.8) k/uL Monocytes # 0.7 (0-1.0) k/uL Eosinophils # 0.2 (0-0.7) k/uL Basophils # 0.1 (0-0.2) k/uL Sodium 141 (137-145) mmol/L Potassium 4.3 (3.5-5.1) mmol/L Chloride 102 (98-107) mmol/L Carbon Dioxide 31 H (22-30) mmol/L Anion Gap 8 mmol/L BUN 15 (9-20) mg/dL Creatinine 1.01 (0.66-1.25) mg/dL Est GFR (CKD-EPI)AfAm >90 (>60 ml/min/1.73 sqM) Est GFR (CKD-EPI)NonAf >90 (>60 ml/min/1.73 sqM) Glucose 200 H (74-99) mg/dL Calcium 10.5 H (8.4-10.2) mg/dL Total Bilirubin 0.9 (0.2-1.3) mg/dL AST 34 (17-59) U/L ALT 50 H (4-49) U/L Alkaline Phosphatase 92 (38-126) U/L Total Protein 7.7 (6.3-8.2) g/dL Albumin 4.8 (3.5-5.0) g/dL Lipase 67 (23-300) U/L Urine Color Yellow Urine Appearance Cloudy (Clear) Urine pH 5.5 (5.0-8.0) Ur Specific [place] 1.035 (1.001-1.035) Urine Protein 1+ H (Negative) Urine Glucose (UA) 1+ H (Negative) Urine Ketones Trace H (Negative) Urine Blood Negative (Negative) Urine Nitrite Negative (Negative) Urine Bilirubin Negative (Negative) Urine Urobilinogen 2.0 (<2.0) mg/dL Ur Leukocyte Esterase Negative (Negative) Urine RBC <1 (0-5) /hpf Urine WBC 2 (0-5) /hpf Ur Squamous Epith Cells <1 (0-4) /hpf Hyaline Casts 1 (0-2) /lpf Urine Mucus Many H (None) /hpf - Radiology Data Radiology results: report reviewed, image reviewed KUB x-ray was obtained. Report was reviewed in its entirety. Impression by Dr. Webster shows nonacute abdomen. Disposition Clinical Impression: Vomiting, Diarrhea Disposition: HOME SELF-CARE Condition: Good Instructions (If sedation given, give patient instructions): Acute Nausea and Vomiting (ED), Acute Diarrhea (ED) Additional Instructions: Start with a clear liquid diet and advance as tolerated. Take medications as needed for symptom relief. Follow-up with your primary care physician for recheck in 1-2 days. Return to the emergency department immediately for any new, worsening, or concerning symptoms. Is patient prescribed a controlled substance at d/c from ED?: No Referrals: Eloise Govea DO [REFERRING] - 1-2 days Time of Disposition: 00:53
--- NOTE | 2020-01-03 00:14 | XR ---
EXAMINATION TYPE: XR KUB DATE OF EXAM: 01/03/2020 COMPARISON: NONE HISTORY: Epigastric pain TECHNIQUE: 2 views upright FINDINGS: Bowel gas pattern is normal. There is no sign of intestinal obstruction or pneumoperitoneum . Fecal pattern is normal. Lung bases are clear. There are no pathologic calcifications. IMPRESSION: Nonacute abdomen.
[2020-01-03 00:23] LABS: Basophils # (A) 0.1 k/uL (0-0.2); Basophils % (A) 1 %; Eosinophils # (A) 0.2 k/uL (0-0.7); Eosinophils % (A) 2 %; HCT 52.3 % (39.0-53.0); HGB 17.5 gm/dL (13.0-17.5); Lymphocytes # (A) 2.2 k/uL (1.0-4.8); Lymphocytes % (A) 21 %; MCH 29.1 pg (25.0-35.0); MCHC 33.4 g/dL (31.0-37.0); Mean Platelet Volume 9.6; Monocytes # (A) 0.7 k/uL (0-1.0); Monocytes % (A) 7 %; Neutrophils # (A) 7.1 k/uL (1.3-7.7); Neutrophils % (A) 68 %; Platelet Count 283 k/uL (150-450); RBC 6.01 m/uL (4.30-5.90); RDW 12.7 % (11.5-15.5); WBC 10.3 k/uL (3.8-10.6)
[2020-01-03 00:34] LABS: Appearance,Urine Cloudy (Clear); Bilirubin,Urine Negative (Negative); Blood,Urine Negative (Negative); Color,Urine Yellow; Glucose,Urine (UA) 1+ (Negative); Hyaline Casts,Urine 1 /lpf (0-2); Ketones,Urine Trace (Negative); Leukocyte Esterase,Urine Negative (Negative); Mucus,Urine Many /hpf; Nitrite,Urine Negative (Negative); PH, Urine 5.5 (5.0-8.0); Protein,Urine 1+ (Negative); RBC,Urine <1 /hpf (0-5); Specific Gravity,Urine 1.035 (1.001-1.035); Squamous Epithelial Cell,Urine <1 /hpf (0-4); WBC,Urine 2 /hpf (0-5)
[2020-01-03 00:38] LABS: ALT 50 U/L (4-49); AST 34 U/L (17-59); African American GFR (CKD) >90 (>60 ml/min/1.73 sqM); Albumin 4.8 g/dL (3.5-5.0); Alkaline Phosphatase 92 U/L (38-126); Anion Gap 8 mmol/L; Blood Urea Nitrogen 15 mg/dL (9-20); Calcium 10.5 mg/dL (8.4-10.2); Carbon Dioxide 31 mmol/L (22-30); Chloride 102 mmol/L (98-107); Glucose 200 mg/dL (74-99); Non-African American GFR(CKD) >90 (>60 ml/min/1.73 sqM); Potassium 4.3 mmol/L (3.5-5.1); Sodium 141 mmol/L (137-145); Total Bilirubin 0.9 mg/dL (0.2-1.3); Total Protein 7.7 g/dL (6.3-8.2)
[2020-01-03 00:52] VITALS: BP 125/75; PULSE 92; RESP 16
[2020-01-03] MEDS ORDERED: ONDANSETRON 4 MG ODT STARTER PACK 2 TAB BTL PO STA (00:52)
== END 2020-01-03 01:04 | disposition home or self-care (01) ==
LOC: EC 23:06
DX: R19.7 Diarrhea, unspecified (principal); R11.10 Vomiting, unspecified; J45.909 Unspecified asthma, uncomplicated; E11.9 Type 2 diabetes mellitus without complications; Z79.51 Long term (current) use of inhaled steroids; Z86.14 Personal history of Methicillin resistant Staphylococcus aureus infection; Z79.4 Long term (current) use of insulin; Z88.5 Allergy status to narcotic agent; Z88.8 Allergy status to other drugs, medicaments and biological substances
CPT/HCPCS: 99284; 96374; 96372; 36415; 80053; 83690; 85025; 81001; 74018; J0500; J2405; S0119

== ENCOUNTER 2020-02-13 16:29 | Emergency (ER) | payer OTHER ==
[2020-02-13 16:34] VITALS: PULSE 81; TEMP 98.8
[2020-02-13] MEDS ORDERED: KETOROLAC 15 MG/ML 1 ML VIAL IVP STA (16:53)
[2020-02-13] MEDS ORDERED: SODIUM CHLORIDE 0.9% 1,000 ML IV STA (16:53)
[2020-02-13] MEDS ORDERED: ONDANSETRON 4 MG/2 ML VIAL IVP STA (16:53)
--- NOTE | 2020-02-13 17:09 | ED ---
Abdominal Pain HPI - General Chief Complaint: Abdominal Pain Stated Complaint: ABD pain Time Seen by Provider: 02/13/20 16:38 Source: patient Mode of arrival: ambulatory Limitations: no limitations - History of Present Illness Initial Comments: Patient is a 39-year-old male presenting to the emergency Department complains of right upper quadrant pain that has been increasing over the past 2 days. Patient states he was evaluated by his PCP and does have gallstones and he does have an appointment with a general surgeon, Dr. Russell in 2 weeks. Patient states over the last 2 days his pain has intensified, he is having some nausea. He states the pain is currently 6/10, denies any radiation of the pain, although the right upper quadrant. He denies any vomiting, diarrhea, fever, chills. Denies any chest pain or shortness of breath. He denies history of abdominal surgeries. He's been having regular bowel movements. He has no further compl aints at this time. Upon arrival to the ER his vitals are stable. - Related Data Home Medications Medication Instructions Recorded Confirmed Albuterol Inhaler (Mhu) [Ventolin 2 puff INHALATION RT-Q6H PRN 05/21/15 04/29/17 Hfa Inhaler (Mhu)] Mometasone Inhalr 220 Mcg/Puff 1 puff INHALATION RT-DAILY 05/22/15 04/29/17 [Asmanex] Naproxen 500 mg PO BID PRN 11/20/15 04/29/17 Insulin Aspart [NovoLOG Flexpen] 10 units SQ TID 04/29/17 04/29/17 Insulin Glargine [Lantus] 30 unit SQ HS 04/29/17 04/29/17 Previous Rx's Medication Instructions Recorded Amoxicillin/Potassium Clav 1 tab PO Q12HR #20 tab 04/29/17 [Augmentin 875-125 Tablet] Ibuprofen [Motrin] 600 mg PO Q8HR PRN #30 tab 04/29/17 Cyclobenzaprine [Flexeril] 10 mg PO TID #15 tab 04/18/18 Albuterol Inhaler (Mhu) [Ventolin 1 - 2 puff INHALATION RT-Q6H PRN 12/07/18 Hfa Inhaler (Mhu)] #1 inhaler predniSONE 10 mg PO DAILY #15 tab 12/07/18 Allergies Allergy/AdvReac Type Severity Reaction Status Date / Time propoxyphene napsylate Allergy Anaphylaxis Verified 02/13/20 16:33 [From Darteresat-N 100] codeine AdvReac Nausea & Verified 02/13/20 16:33 Vomiting Review of Systems ROS Statement: Those systems with pertinent positive or pertinent negative responses have been documented in the HPI. ROS Other: All systems not noted in ROS Statement are negative. Past Medical History Past Medical History: Asthma, Diabetes Mellitus, Hyperlipidemia, Syncope Additional Past Medical History / Comment(s): ring cut left finger and got infection of mrsa History of Any Multi-Drug Resistant Organisms: MRSA Date of last positivie culture/infection: 2007 MDRO Source:: right leg, right arm, right knee Past Surgical History: Orthopedic Surgery Additional Past Surgical History / Comment(s): Bilateral eye lasik, wisdom teeth, Past Psychological History: Anxiety, Depression Smoking Status: Never smoker Past Alcohol Use History: None Reported Past Drug Use History: None Reported General Exam - General Exam Comments Initial Comments: GENERAL: Patient is well-developed and well-nourished. Patient is nontoxic and in no acute distress. HEAD: Atraumatic, normocephalic. EYES: Pupils equal round and reactive to light, extraocular movements intact, sclera anicteric, conjunctiva are normal. Eyelids were unremarkable. ENT: TMs normal, nares patent, oropharynx clear without exudates. Moist mucous membranes. NECK: Normal range of motion, supple without lymphadenopathy or JVD. LUNGS: Unlabored respirations. Breath sounds clear to auscultation bilaterally and equal. No wheezes rales or rhonchi. HEART: Regular rate and rhythm without murmurs, rubs or gallops. ABDOMEN: Tender to palpation in the right upper quadrant, negative Shirley sign. Soft, normoactive bowel sounds. No guarding, no rebound. No masses appreciated. : Deferred MUSCULOSKELETAL: Normal extremities with adequate strength and normal range of motion, no pitting or edema. No clubbing or cyanosis. NEUROLOGICAL: Patient is alert and oriented x 3. Motor and sensory are also intact. Cranial nerves II through XII grossly intact. Symmetrical smile. Normal speech, normal gait. PSYCH: Normal mood, normal affect. SKIN: Warm, Dry, normal turgor, no rashes or lesions noted. Limitations: no limitations Course Vital Signs 02/13/20 02/13/20 16:31 18:46 Temperature 98.8 F Pulse Rate 81 81 Respiratory 18 16 Rate Blood Pressure 123/62 113/74 O2 Sat by Pulse 99 99 Oximetry Medical Decision Making - Medical Decision Making Patient is a 39-year-old male here with right upper quadrant pain that's been increasing over the past 2 days but he's had for 2 weeks. He does have an appointment with Dr. Russell in 2 weeks to discuss cholecystectomy. His vital signs are stable. Labs are stable, normal white count, normal liver enzymes. Urine is no signs of infection, 4+ glucose, his glucose was 319. He is diabetic. Ultrasound shows gallstones, contracted gallbladder but no signs of acute cholecystitis. Patient given fluids, pain control, he is stable at this time. I discussed these findings with the patient. He can follow up with Dr. Robbin sahu outpatient. He is in agreement with plan of care. He is stable for discharge. Return parameters were discussed with the patient he verbalizes understanding. Case discussed with Dr. Salas. - Lab Data Result diagrams: 02/13/20 17:28 02/13/20 17:28 Lab Results 02/13/20 02/13/20 02/13/20 Range/Units 17:28 17:28 17:28 WBC 8.3 (3.8-10.6) k/uL RBC 5.48 (4.30-5.90) m/uL Hgb 17.1 (13.0-17.5) gm/dL Hct 50.5 (39.0-53.0) % MCV 92.2 D (80.0-100.0) fL MCH 31.1 (25.0-35.0) pg MCHC 33.8 (31.0-37.0) g/dL RDW 12.8 (11.5-15.5) % Plt Count 232 (150-450) k/uL Neutrophils % 56 % Lymphocytes % 34 % Monocytes % 6 % Eosinophils % 2 % Basophils % 1 % Neutrophils # 4.7 (1.3-7.7) k/uL Lymphocytes # 2.8 (1.0-4.8) k/uL Monocytes # 0.5 (0-1.0) k/uL Eosinophils # 0.2 (0-0.7) k/uL Basophils # 0.1 (0-0.2) k/uL PT (9.0-12.0) sec INR (<1.2) APTT (22.0-30.0) sec Sodium 136 L (137-145) mmol/L Potassium 4.4 (3.5-5.1) mmol/L Chloride 99 (98-107) mmol/L Carbon Dioxide 31 H (22-30) mmol/L Anion Gap 6 mmol/L BUN 14 (9-20) mg/dL Creatinine 0.79 (0.66-1.25) mg/dL Est GFR (CKD-EPI)AfAm >90 (>60 ml/min/1.73 sqM) Est GFR (CKD-EPI)NonAf >90 (>60 ml/min/1.73 sqM) Glucose 319 H (74-99) mg/dL Calcium 9.5 (8.4-10.2) mg/dL Total Bilirubin 0.5 (0.2-1.3) mg/dL AST 30 (17-59) U/L ALT 42 (4-49) U/L Alkaline Phosphatase 97 (38-126) U/L Total Protein 7.5 (6.3-8.2) g/dL Albumin 4.4 (3.5-5.0) g/dL Amylase 44 (30-110) U/L Lipase 92 (23-300) U/L Urine Color Light Yellow Urine Appearance Clear (Clear) Urine pH 6.0 (5.0-8.0) Ur Specific [place] 1.032 (1.001-1.035) Urine Protein Negative (Negative) Urine Glucose (UA) 4+ H (Negative) Urine Ketones Negative (Negative) Urine Blood Negative (Negative) Urine Nitrite Negative (Negative) Urine Bilirubin Negative (Negative) Urine Urobilinogen <2.0 (<2.0) mg/dL Ur Leukocyte Esterase Negative (Negative) 02/13/20 Range/Units 17:28 WBC (3.8-10.6) k/uL RBC (4.30-5.90) m/uL Hgb (13.0-17.5) gm/dL Hct (39.0-53.0) % MCV (80.0-100.0) fL MCH (25.0-35.0) pg MCHC (31.0-37.0) g/dL RDW (11.5-15.5) % Plt Count (150-450) k/uL Neutrophils % % Lymphocytes % % Monocytes % % Eosinophils % % Basophils % % Neutrophils # (1.3-7.7) k/uL Lymphocytes # (1.0-4.8) k/uL Monocytes # (0-1.0) k/uL Eosinophils # (0-0.7) k/uL Basophils # (0-0.2) k/uL PT 9.7 (9.0-12.0) sec INR 0.9 (<1.2) APTT 24.6 (22.0-30.0) sec Sodium (137-145) mmol/L Potassium (3.5-5.1) mmol/L Chloride (98-107) mmol/L Carbon Dioxide (22-30) mmol/L Anion Gap mmol/L BUN (9-20) mg/dL Creatinine (0.66-1.25) mg/dL Est GFR (CKD-EPI)AfAm (>60 ml/min/1.73 sqM) Est GFR (CKD-EPI)NonAf (>60 ml/min/1.73 sqM) Glucose (74-99) mg/dL Calcium (8.4-10.2) mg/dL Total Bilirubin (0.2-1.3) mg/dL AST (17-59) U/L ALT (4-49) U/L Alkaline Phosphatase (38-126) U/L Total Protein (6.3-8.2) g/dL Albumin (3.5-5.0) g/dL Amylase (30-110) U/L Lipase (23-300) U/L Urine Color Urine Appearance (Clear) Urine pH (5.0-8.0) Ur Specific [place] (1.001-1.035) Urine Protein (Negative) Urine Glucose (UA) (Negative) Urine Ketones (Negative) Urine Blood (Negative) Urine Nitrite (Negative) Urine Bilirubin (Negative) Urine Urobilinogen (<2.0) mg/dL Ur Leukocyte Esterase (Negative) Disposition Clinical Impression: Biliary colic Disposition: HOME SELF-CARE Condition: Stable Instructions (If sedation given, give patient instructions): Gallstones (ED) Additional Instructions: Please return to the Emergency Department if symptoms worsen or any other concerns. Workup today was stable. Follow up with surgery as discussed. Is patient prescribed a controlled substance at d/c from ED?: No Referrals: Yesica Hinds MD [Primary Care Provider] - 1-2 days Jacquelyn Russell MD [STAFF PHYSICIAN] - 1-2 days
--- NOTE | 2020-02-13 17:57 | US ---
EXAMINATION TYPE: US gallbladder DATE OF EXAM: 02/13/2020 COMPARISON: NONE CLINICAL HISTORY: RUQ pain, nausea, hx of stones. Pt states RUQ pain EXAM MEASUREMENTS: Liver Length: 17.2 cm Gallbladder Wall: 0.3 cm CBD: 0.4 cm Right Kidney: 11.6 x 5.5 x 5.9 cm Pancreas: Obscured by bowel gas Liver: Visualized portions appeared wnl, somewhat gassed out Gallbladder: DAVID sign, difficult to visualize GB wall Evidence for sonographic Shirley's sign: No CBD: wnl Right Kidney: wnl IMPRESSION: Contracted gallbladder with numerous gallstones. No dilated ducts. No focal liver defect.
[2020-02-13 17:58] LABS: Basophils # (A) 0.1 k/uL (0-0.2); Basophils % (A) 1 %; Eosinophils # (A) 0.2 k/uL (0-0.7); Eosinophils % (A) 2 %; HCT 50.5 % (39.0-53.0); HGB 17.1 gm/dL (13.0-17.5); Lymphocytes # (A) 2.8 k/uL (1.0-4.8); Lymphocytes % (A) 34 %; MCH 31.1 pg (25.0-35.0); MCHC 33.8 g/dL (31.0-37.0); Mean Platelet Volume 9.9; Monocytes # (A) 0.5 k/uL (0-1.0); Monocytes % (A) 6 %; Neutrophils # (A) 4.7 k/uL (1.3-7.7); Neutrophils % (A) 56 %; Platelet Count 232 k/uL (150-450); RBC 5.48 m/uL (4.30-5.90); RDW 12.8 % (11.5-15.5); WBC 8.3 k/uL (3.8-10.6)
[2020-02-13 18:08] LABS: ALT 42 U/L (4-49); AST 30 U/L (17-59); African American GFR (CKD) >90 (>60 ml/min/1.73 sqM); Albumin 4.4 g/dL (3.5-5.0); Alkaline Phosphatase 97 U/L (38-126); Amylase 44 U/L (30-110); Anion Gap 6 mmol/L; Blood Urea Nitrogen 14 mg/dL (9-20); Calcium 9.5 mg/dL (8.4-10.2); Carbon Dioxide 31 mmol/L (22-30); Chloride 99 mmol/L (98-107); Glucose 319 mg/dL (74-99); Lipase 92 U/L (23-300); Non-African American GFR(CKD) >90 (>60 ml/min/1.73 sqM); Potassium 4.4 mmol/L (3.5-5.1); Sodium 136 mmol/L (137-145); Total Bilirubin 0.5 mg/dL (0.2-1.3); Total Protein 7.5 g/dL (6.3-8.2)
[2020-02-13 18:12] LABS: MCV 92.2 fL (80.0-100.0)
[2020-02-13 18:18] LABS: Appearance,Urine Clear (Clear); Bilirubin,Urine Negative (Negative); Blood,Urine Negative (Negative); Color,Urine Light Yellow; Glucose,Urine (UA) 4+ (Negative); Ketones,Urine Negative (Negative); Leukocyte Esterase,Urine Negative (Negative); Nitrite,Urine Negative (Negative); Protein,Urine Negative (Negative); Specific Gravity,Urine 1.032 (1.001-1.035); Urobilinogen,Urine <2.0 mg/dL (<2.0)
[2020-02-13 18:33] LABS: INR 0.9 (<1.2); Partial Thromboplastin Time 24.6 sec (22.0-30.0); Prothrombin Time 9.7 sec (9.0-12.0)
[2020-02-13 18:47] VITALS: BP 113/74; RESP 16
[2020-02-13] MEDS ORDERED: traMADol 50 MG STARTER PACK 3 TAB BTL PO STA (19:10)
== END 2020-02-13 19:13 | disposition home or self-care (01) ==
LOC: EC 16:29
DX: K80.70 Calculus of gallbladder and bile duct without cholecystitis without obstruction (principal); J45.909 Unspecified asthma, uncomplicated; E11.9 Type 2 diabetes mellitus without complications; E78.5 Hyperlipidemia, unspecified; Z79.4 Long term (current) use of insulin; Z79.51 Long term (current) use of inhaled steroids; Z88.5 Allergy status to narcotic agent; Z88.8 Allergy status to other drugs, medicaments and biological substances
CPT/HCPCS: 36415; 80053; 82150; 83690; 85025; 85610; 85730; 81003; 76705; 99284; 96374; 96375; 96361; J2405; J1885

== ENCOUNTER 2020-03-24 09:34 | Emergency (ER) | payer OTHER ==
[2020-03-24 09:38] VITALS: TEMP 98.8
[2020-03-24] MEDS ORDERED: KETOROLAC 15 MG/ML 1 ML VIAL IVP STA (09:45)
--- NOTE | 2020-03-24 09:53 | ED ---
Chest Pain HPI - General Chief Complaint: Chest Pain Stated Complaint: chest pain, +Covid Time Seen by Provider: 03/24/20 09:34 Source: patient, EMS, RN notes reviewed, old records reviewed Mode of arrival: EMS Limitations: no limitations - History of Present Illness Initial Comments: This is a 39-year-old male who presents by EMS with complaints of chest pain started this morning. He states was left-sided and midsternal radiating down the left arm he states it was needlelike in severity 10/19 currently 05/22 after he received oral aspirin 324 mg. He does state he has generalized body aches he was diagnosed with Covid 19 yesterday. He denies any overt shortness of breath at this time he was exposed to a niece that had the virus his initial test a week ago was negative however he started having symptoms several days ago and was tested positive. Additionally he does state he has gallbladder disease and is to have his gallbladder taken out at some point additionally he did also have some blood per rectum apparently last week and is scheduled for colonoscopy. MD Complaint: chest pain - Related Data Home Medications Medication Instructions Recorded Confirmed Albuterol Inhaler (Mhu) [Ventolin 2 puff INHALATION RT-Q6H PRN 05/21/15 04/29/17 Hfa Inhaler (Mhu)] Mometasone Inhalr 220 Mcg/Puff 1 puff INHALATION RT-DAILY 05/22/15 04/29/17 [Asmanex] Naproxen 500 mg PO BID PRN 11/20/15 04/29/17 Insulin Aspart [NovoLOG Flexpen] 10 units SQ TID 04/29/17 04/29/17 Insulin Glargine [Lantus] 30 unit SQ HS 04/29/17 04/29/17 Previous Rx's Medication Instructions Recorded Amoxicillin/Potassium Clav 1 tab PO Q12HR #20 tab 04/29/17 [Augmentin 875-125 Tablet] Ibuprofen [Motrin] 600 mg PO Q8HR PRN #30 tab 04/29/17 Cyclobenzaprine [Flexeril] 10 mg PO TID #15 tab 04/18/18 Albuterol Inhaler (Mhu) [Ventolin 1 - 2 puff INHALATION RT-Q6H PRN 12/07/18 Hfa Inhaler (Mhu)] #1 inhaler predniSONE 10 mg PO DAILY #15 tab 12/07/18 Albuterol Inhaler [Ventolin Hfa 2 puff INHALATION RT-QID #1 puff 03/24/20 Inhaler] Azithromycin [Zithromax Tri-Maksim (3 500 mg PO DAILY 3 Days #3 tab 03/24/20 tabs)] Dexamethasone [Decadron] 6 mg PO DAILY #5 tablet 03/24/20 Allergies Allergy/AdvReac Type Severity Reaction Status Date / Time propoxyphene napsylate Allergy Anaphylaxis Verified 02/13/20 16:33 [From Darvocet-N 100] codeine AdvReac Nausea & Verified 02/13/20 16:33 Vomiting Review of Systems ROS Statement: Those systems with pertinent positive or pertinent negative responses have been documented in the HPI. ROS Other: All systems not noted in ROS Statement are negative. EKG Findings - EKG Results: EKG: interpreted by JERRY, sinus rhythm (Sinus rhythm a 93. Interval 144 QRS duration 104 QT since QTC 360/457 and complete right bundle-branch block pattern nonspecific T-wave configuration this is compared with one dated 10/09/19) Past Medical History Past Medical History: Asthma, Diabetes Mellitus, Hyperlipidemia, Syncope Additional Past Medical History / Comment(s): ring cut left finger and got infection of mrsa History of Any Multi-Drug Resistant Organisms: MRSA Date of last positivie culture/infection: 2007 MDRO Source:: right leg, right arm, right knee Past Surgical History: Orthopedic Surgery Additional Past Surgical History / Comment(s): Bilateral eye lasik, wisdom teeth, Past Psychological History: Anxiety, Depression Smoking Status: Never smoker Past Alcohol Use History: None Reported Past Drug Use History: None Reported General Exam - General Exam Comments Initial Comments: This is a well-developed well-nourished awake alert oriented 3 Limitations: no limitations General appearance: alert, in no apparent distress Head exam: Present: atraumatic, normocephalic, normal inspection Eye exam: Present: normal appearance, PERRL, EOMI. Absent: scleral icterus, c onjunctival injection, periorbital swelling ENT exam: Present: normal exam, mucous membranes moist Neck exam: Present: normal inspection. Absent: tenderness, meningismus, lymphadenopathy Respiratory exam: Present: normal lung sounds bilaterally, chest wall tenderness (Producible tenderness palpation along the left costal sternal costochondral margin without step-off or crepitation). Absent: respiratory distress, wheezes, rales, rhonchi, stridor Cardiovascular Exam: Present: regular rate, normal rhythm, normal heart sounds. Absent: systolic murmur, diastolic murmur, rubs, gallop, clicks GI/Abdominal exam: Present: soft, normal bowel sounds. Absent: distended, tend erness, guarding, rebound, rigid Extremities exam: Present: normal inspection, full ROM, normal capillary refill. Absent: tenderness, pedal edema, joint swelling, calf tenderness Back exam: Present: normal inspection Neurological exam: Present: alert, oriented X3, CN II-XII intact Psychiatric exam: Present: normal affect, normal mood Skin exam: Present: warm, dry, intact, normal color. Absent: rash Course Vital Signs 03/24/20 03/24/20 03/24/20 09:35 09:38 11:17 Temperature 98.8 F Pulse Rate 95 93 Pulse Rate [ 95 Surgical Technician ] Respiratory 18 20 18 Rate Blood Pressure 136/100 117/74 O2 Sat by Pulse 97 97 Oximetry 03/24/20 12:29 Temperature Pulse Rate 89 Pulse Rate [ Surgical Technician ] Respiratory 16 Rate Blood Pressure 107/68 O2 Sat by Pulse 95 Oximetry Chest Pain MDM - MDM Imaging reviewed he does have straight evidence of patchy bilateral infiltrates consistent with viral pneumonia. CAT scan showed no evidence of PE. Patient will be discharged home on appropriate medications he is a follow-up with his doctor return when necessary Disposition Clinical Impression: Costochondritis, Chest wall syndrome, COVID-19, Viral pneumonia Disposition: HOME SELF-CARE Condition: Good Instructions (If sedation given, give patient instructions): Costochondritis (ED) Additional Instructions: Vitamin D3 1000 units daily, vitamin C 1000 mg daily, zinc sulfate 220 mg daily, Pepcid 20 mg daily, melatonin 10 mg at bedtime Prescriptions: Dexamethasone [Decadron] 6 mg PO DAILY #5 tablet Albuterol Inhaler [Ventolin Hfa Inhaler] 2 puff INHALATION RT-QID #1 puff Azithromycin [Zithromax Tri-Maksim (3 tabs)] 500 mg PO DAILY 3 Days #3 tab Is patient prescribed a controlled substance at d/c from ED?: No Referrals: Yesica Hinds MD [Primary Care Provider] - 1-2 days
[2020-03-24 10:00] LABS: Basophils # (A) 0.2 k/uL (0-0.2); Basophils % (A) 2 %; Eosinophils % (A) 1 %; HCT 49.4 % (39.0-53.0); HGB 17.5 gm/dL (13.0-17.5); Lymphocytes # (A) 1.6 k/uL (1.0-4.8); Lymphocytes % (A) 21 %; MCHC 35.4 g/dL (31.0-37.0); MCV 87.6 fL (80.0-100.0); Mean Platelet Volume 10.1; Monocytes # (A) 0.5 k/uL (0-1.0); Monocytes % (A) 7 %; Neutrophils # (A) 5.2 k/uL (1.3-7.7); Neutrophils % (A) 67 %; Platelet Count 162 k/uL (150-450); RBC 5.64 m/uL (4.30-5.90); RDW 12.4 % (11.5-15.5); WBC 7.7 k/uL (3.8-10.6)
--- NOTE | 2020-03-24 10:05 | XR ---
EXAMINATION TYPE: XR chest 2V DATE OF EXAM: 03/24/2020 COMPARISON: 10/09/2019 INDICATION: Chest pain TECHNIQUE: Frontal and lateral views of the chest are obtained. FINDINGS: The heart size is normal. The pulmonary vasculature is normal. Patchy infiltrates are within the right midlung. Minimal infiltrate may be at the left base. Findings are nonspecific but can be related to atypical pneumonia IMPRESSION: 1. Scattered small infiltrates can be compatible with atypical pneumonia.
[2020-03-24 10:19] LABS: D-Dimer 0.49 mg/L FEU (<0.60); INR 0.9 (<1.2); Partial Thromboplastin Time 23.5 sec (22.0-30.0); Prothrombin Time 9.9 sec (9.0-12.0)
[2020-03-24 10:25] LABS: ALT 43 U/L (4-49); AST 37 U/L (17-59); African American GFR (CKD) >90 (>60 ml/min/1.73 sqM); Albumin 4.3 g/dL (3.5-5.0); Alkaline Phosphatase 87 U/L (38-126); Anion Gap 15 mmol/L; Blood Urea Nitrogen 13 mg/dL (9-20); C Reactive Protein 35.2 mg/L (<10.0); Carbon Dioxide 17 mmol/L (22-30); Chloride 106 mmol/L (98-107); Creatine Kinase 71 U/L (55-170); Glucose 265 mg/dL (74-99); LDH 527 U/L (313-618); Lipase 70 U/L (23-300); Magnesium 1.7 mg/dL (1.6-2.3); Non-African American GFR(CKD) >90 (>60 ml/min/1.73 sqM); Potassium 4.3 mmol/L (3.5-5.1); Sodium 138 mmol/L (137-145); Total Bilirubin 0.8 mg/dL (0.2-1.3); Total Protein 7.3 g/dL (6.3-8.2)
--- NOTE | 2020-03-24 12:39 | CT ---
CT CHEST FOR PULMONARY EMBOLISM. EXAMINATION TYPE: CT angio chest DATE OF EXAM: 03/24/2020 INDICATION: covid CT DLP: 451.1 mGycm, Automated exposure control for dose reduction was used. CONTRAST: Patient injected with 100 mL of Isovue 370. COMPARISON: None TECHNIQUE: CT of the chest is performed on a spiral scan at 2 mm thick sections. Study is performed with intravenous contrast timed for evaluation for pulmonary embolism. This will limit additional po rtions of the evaluation. 3-D MIP images reconstructed by the technologist are reviewed on the compu ter in the coronal and sagittal planes. FINDINGS: No persistent filling defects are evident to suggest an acute pulmonary embolism. No mediastinal or hilar adenopathy enlarged by CT criteria is evident. The ascending aorta diameter at the level of the main pulmonary artery is 3.0 cm. The main pulmonary artery diameter at the bifur cation is 2.5 cm. Patchy nonspecific infiltrates are present bilaterally greater on the right. Findings can be compatib le with, but not diagnostic for, atypical pneumonia. Limited CT section through the upper abdomen. Mild fatty infiltration liver is present. IMPRESSIONS: 1. No acute pulmonary embolism. 2. Patchy infiltrates, correlate for atypical pneumonia.
[2020-03-24] MEDS ORDERED: AZITHROMYCIN 500 MG TAB PO STA (12:58)
[2020-03-24] MEDS ORDERED: dexAMETHasone 2 MG TAB PO STA (12:58)
[2020-03-24 13:29] VITALS: BP 125/80; PULSE 108; RESP 18
[2020-03-24 16:59] LABS: Ferritin 667.8 ng/mL (22.0-322.0)
== END 2020-03-24 13:28 | disposition home or self-care (01) ==
LOC: EC 09:34
DX: U07.1 COVID-19 (principal); J12.89 Other viral pneumonia; M94.0 Chondrocostal junction syndrome [Tietze]; R07.1 Chest pain on breathing; J45.909 Unspecified asthma, uncomplicated; E11.9 Type 2 diabetes mellitus without complications; Z79.51 Long term (current) use of inhaled steroids; Z79.4 Long term (current) use of insulin; Z88.5 Allergy status to narcotic agent; Z86.14 Personal history of Methicillin resistant Staphylococcus aureus infection
CPT/HCPCS: 36415; 93005; 85379; 83880; 80053; 82728; 82550; 83605; 83615; 83690; 83735; 84484; 85025; 85610; 85730; 86140; 84145; 71046; 71275; 99285; 96374; J8540; J1885; Q9967

== ENCOUNTER 2020-05-02 05:49 | Emergency (ER) | payer OTHER ==
[2020-05-02 05:59] VITALS: TEMP 98.4
[2020-05-02] MEDS ORDERED: SODIUM CHLORIDE 0.9% 500 ML 500 ML IV ONE (06:17)
[2020-05-02] MEDS ORDERED: HYDROmorphone 0.5 MG/0.5 ML SYRINGE IVP STA (06:17)
[2020-05-02] MEDS ORDERED: ONDANSETRON 4 MG/2 ML VIAL IVP STA (06:17)
[2020-05-02] MEDS ORDERED: SODIUM CHLORIDE 0.9% 1,000 ML IV SCH (06:30)
--- NOTE | 2020-05-02 06:55 | ED ---
Abdominal Pain HPI - General Source: patient Mode of arrival: ambulatory Limitations: no limitations <Christina Red - Last Filed: 05/02/20 09:14> <Leonela Ng - Last Filed: 05/02/20 09:52> - General Chief Complaint: Abdominal Pain Stated Complaint: Abd Pain Time Seen by Provider: 05/02/20 06:03 - History of Present Illness Initial Comments: 39-year-old male history of gallstones present to the ER for "gallbladder problems". Patient since JANUARY he was struggling with his gallbladder he states he would have significant pain after eating and when initially began he had very loose stools. He states loose stools have subsided but every time he eats he continues to have the right upper quadrant pain he states he was scheduled with Dr. Russell for cholecystectomy that was supposed to be performed March 28 the patient states March 23 he was diagnosed with a Covid 19 infection. Patient patient denies any chest pressure pain jaw pain or arm pain he states it feels like his abdominal pain that has been experiencing in January except stronger and more persistent this time. Patient denies vomi ting, nausea. Patient denies fevers. Patient appears nontoxic in no acute distress. (Christina Red) - Related Data Home Medications Medication Instructions Recorded Confirmed Insulin Aspart [NovoLOG Flexpen] 25 units SQ AC-TID 04/29/17 05/02/20 Insulin Glargine [Lantus] 80 unit SQ HS 04/29/17 05/02/20 Albuterol Inhaler [Ventolin Hfa 1 - 2 puff INHALATION RT-Q4H PRN 03/24/20 05/02/20 Inhaler] Alogliptin Benzoate [Alogliptin] 25 mg PO HS 03/24/20 05/02/20 Cholecalciferol [Vitamin D3 (25 1,000 unit PO DAILY 03/24/20 05/02/20 Mcg = 1000 Iu)] Pravastatin Sodium [Pravachol] 80 mg PO HS 03/24/20 05/02/20 buPROPion [Wellbutrin] 100 mg PO DAILY 03/24/20 05/02/20 lisinopriL [Zestril] 2.5 mg PO DAILY 03/24/20 05/02/20 Mometasone/Formoterol [Dulera 100 2 puff INHALATION RT-DAILY 05/02/20 05/02/20 Mcg-5 Mcg Inhaler] Naproxen 500 mg PO BID PRN 05/02/20 05/02/20 Allergies Allergy/AdvReac Type Severity Reaction Status Date / Time propoxyphene napsylate Allergy Anaphylaxis Verified 05/02/20 08:39 [From Darvocet-N 100] codeine AdvReac Nausea & Verified 05/02/20 08:39 Vomiting Review of Systems ROS Other: All systems not noted in ROS Statement are negative. <Christina Red - Last Filed: 05/02/20 09:14> ROS Other: All systems not noted in ROS Statement are negative. <Leonela Ng - Last Filed: 05/02/20 09:52> ROS Statement: Those systems with pertinent positive or pertinent negative responses have been documented in the HPI. Past Medical History Past Medical History: Asthma, Diabetes Mellitus, Hyperlipidemia, Syncope Additional Past Medical History / Comment(s): ring cut left finger and got infection of mrsa History of Any Multi-Drug Resistant Organisms: MRSA Date of last positivie culture/infection: 2007 MDRO Source:: right leg, right arm, right knee Past Surgical History: Orthopedic Surgery Additional Past Surgical History / Comment(s): Bilateral eye lasik, wisdom teeth, Past Psychological History: Anxiety, Depression Smoking Status: Never smoker Past Alcohol Use History: None Reported Past Drug Use History: None Reported <Christina Red - Last Filed: 05/02/20 09:14> General Exam Limitations: no limitations <Christina Red - Last Filed: 05/02/20 09:14> Course Vital Signs 05/02/20 05/02/20 05/02/20 05:55 06:46 07:00 Temperature 98.4 F Pulse Rate 109 H Respiratory 18 17 Rate Blood Pressure 143/90 135/97 135/97 O2 Sat by Pulse 97 98 95 Oximetry 05/02/20 05/02/20 05/02/20 07:30 08:00 08:30 Temperature Pulse Rate 87 Respiratory 16 Rate Blood Pressure 130/94 130/94 131/91 O2 Sat by Pulse 95 98 99 Oximetry 05/02/20 09:00 Temperature Pulse Rate 91 Respiratory 17 Rate Blood Pressure 131/91 O2 Sat by Pulse 96 Oximetry Medical Decision Making - Lab Data Result diagrams: 05/02/20 07:27 05/02/20 08:19 <Christina Red - Last Filed: 05/02/20 09:14> - Lab Data Result diagrams: 05/02/20 07:27 05/02/20 08:19 <Leonela Ng - Last Filed: 05/02/20 09:52> - Medical Decision Making Labs stable. pain controlled. US revealed known gallbladder stones. no signs of acute infection. pt afebrile nontoxic with no leukocytosis and at this tiem i feel he is stable for discharge with PCP and surgery f/u. patient agreeable to care plan. (Christina Red) I was available for consultation in the emergency department. The history and physical exam were done by the midlevel provider. I was consulted for this patients care. I reviewed the case with the midlevel provider and based on their presentation of the patient, I agree with the assessment, medical decision making and plan of care as documented. Chart was dictated using [employer] dictation software. Attempts were made to correct any dictation errors however some typographical errors may persist. (Leonela Ng) - Lab Data Lab Results 05/02/20 05/02/20 05/02/20 Range/Units 06:41 07:02 07:27 WBC 6.8 (3.8-10.6) k/uL RBC 5.06 (4.30-5.90) m/uL Hgb 15.5 (13.0-17.5) gm/dL Hct 43.7 (39.0-53.0) % MCV 86.5 (80.0-100.0) fL MCH 30.6 (25.0-35.0) pg MCHC 35.4 (31.0-37.0) g/dL RDW 13.4 (11.5-15.5) % Plt Count 174 (150-450) k/uL MPV 10.5 Neutrophils % 58 % Lymphocytes % 32 % Monocytes % 6 % Eosinophils % 2 % Basophils % 1 % Neutrophils # 3.9 (1.3-7.7) k/uL Lymphocytes # 2.2 (1.0-4.8) k/uL Monocytes # 0.4 (0-1.0) k/uL Eosinophils # 0.1 (0-0.7) k/uL Basophils # 0.1 (0-0.2) k/uL Sodium (137-145) mmol/L Potassium (3.5-5.1) mmol/L Chloride (98-107) mmol/L Carbon Dioxide (22-30) mmol/L Anion Gap mmol/L BUN (9-20) mg/dL Creatinine (0.66-1.25) mg/dL Est GFR (CKD-EPI)AfAm (>60 ml/min/1.73 sqM) Est GFR (CKD-EPI)NonAf (>60 ml/min/1.73 sqM) Glucose (74-99) mg/dL Plasma Lactic Acid Rafael 1.3 (0.7-2.0) mmol/L Calcium (8.4-10.2) mg/dL Total Bilirubin (0.2-1.3) mg/dL AST (17-59) U/L ALT (4-49) U/L Alkaline Phosphatase (38-126) U/L Total Protein (6.3-8.2) g/dL Albumin (3.5-5.0) g/dL Amylase (30-110) U/L Lipase (23-300) U/L Urine Color Yellow Urine Appearance Clear (Clear) Urine pH 5.0 (5.0-8.0) Ur Specific [place] 1.029 (1.001-1.035) Urine Protein Negative (Negative) Urine Glucose (UA) 4+ H (Negative) Urine Ketones 2+ H (Negative) Urine Blood Negative (Negative) Urine Nitrite Negative (Negative) Urine Bilirubin Negative (Negative) Urine Urobilinogen <2.0 (<2.0) mg/dL Ur Leukocyte Esterase Negative (Negative) 05/02/20 Range/Units 08:19 WBC (3.8-10.6) k/uL RBC (4.30-5.90) m/uL Hgb (13.0-17.5) gm/dL Hct (39.0-53.0) % MCV (80.0-100.0) fL MCH (25.0-35.0) pg MCHC (31.0-37.0) g/dL RDW (11.5-15.5) % Plt Count (150-450) k/uL MPV Neutrophils % % Lymphocytes % % Monocytes % % Eosinophils % % Basophils % % Neutrophils # (1.3-7.7) k/uL Lymphocytes # (1.0-4.8) k/uL Monocytes # (0-1.0) k/uL Eosinophils # (0-0.7) k/uL Basophils # (0-0.2) k/uL Sodium 138 (137-145) mmol/L Potassium 4.2 (3.5-5.1) mmol/L Chloride 105 (98-107) mmol/L Carbon Dioxide 28 (22-30) mmol/L Anion Gap 5 mmol/L BUN 16 (9-20) mg/dL Creatinine 0.74 (0.66-1.25) mg/dL Est GFR (CKD-EPI)AfAm >90 (>60 ml/min/1.73 sqM) Est GFR (CKD-EPI)NonAf >90 (>60 ml/min/1.73 sqM) Glucose 230 H (74-99) mg/dL Plasma Lactic Acid Rafael (0.7-2.0) mmol/L Calcium 8.8 (8.4-10.2) mg/dL Total Bilirubin 0.9 (0.2-1.3) mg/dL AST 33 (17-59) U/L ALT 50 H (4-49) U/L Alkaline Phosphatase 71 (38-126) U/L Total Protein 6.4 (6.3-8.2) g/dL Albumin 3.8 (3.5-5.0) g/dL Amylase 35 (30-110) U/L Lipase 48 (23-300) U/L Urine Color Urine Appearance (Clear) Urine pH (5.0-8.0) Ur Specific [place] (1.001-1.035) Urine Protein (Negative) Urine Glucose (UA) (Negative) Urine Ketones (Negative) Urine Blood (Negative) Urine Nitrite (Negative) Urine Bilirubin (Negative) Urine Urobilinogen (<2.0) mg/dL Ur Leukocyte Esterase (Negative) Disposition Is patient prescribed a controlled substance at d/c from ED?: No Time of Disposition: 09:08 <Christina Red - Last Filed: 05/02/20 09:14> <Leonela Ng - Last Filed: 05/02/20 09:52> Clinical Impression: Abdominal pain, Gallbladder calculus Disposition: HOME SELF-CARE Condition: Good Instructions (If sedation given, give patient instructions): Abdominal Pain (ED) Additional Instructions: Please use medication as discussed. Please follow-up with family doctor in the next 2 days, as well as your general surgeon. Please return to emergency room if the symptoms increase or worsen or for any other concerns. Referrals: Yesica Hinds MD [Primary Care Provider] - 1-2 days Jacquelyn Russell MD [STAFF PHYSICIAN] - 1-2 days
[2020-05-02 07:26] LABS: Appearance,Urine Clear (Clear); Bilirubin,Urine Negative (Negative); Blood,Urine Negative (Negative); Color,Urine Yellow; Glucose,Urine (UA) 4+ (Negative); Leukocyte Esterase,Urine Negative (Negative); Nitrite,Urine Negative (Negative); Protein,Urine Negative (Negative); Specific Gravity,Urine 1.029 (1.001-1.035); Urobilinogen,Urine <2.0 mg/dL (<2.0)
--- NOTE | 2020-05-02 07:37 | US ---
EXAMINATION TYPE: US gallbladder DATE OF EXAM: 05/02/2020 COMPARISON: US CLINICAL HISTORY: pain, hx of stones. ABD pain, known gallstones EXAM MEASUREMENTS: Liver Length: 17.9 cm Gallbladder Wall: 0.2 cm CBD: 0.4 cm Right Kidney: 12.0 x 5.2 x 5.7 cm Pancreas: Obscured by bowel gas Liver: Heterogeneous, difficult to penetrate Gallbladder: Multiple gallstones, somewhat contracted Evidence for sonographic Shirley's sign: No CBD: wnl Right Kidney: wnl IMPRESSION: 1. Cholelithiasis. 2. Mild to moderate fatty infiltration liver. Hepatomegaly is present.
[2020-05-02 07:51] LABS: Basophils # (A) 0.1 k/uL (0-0.2); Basophils % (A) 1 %; Eosinophils # (A) 0.1 k/uL (0-0.7); Eosinophils % (A) 2 %; HCT 43.7 % (39.0-53.0); HGB 15.5 gm/dL (13.0-17.5); Lymphocytes # (A) 2.2 k/uL (1.0-4.8); Lymphocytes % (A) 32 %; MCH 30.6 pg (25.0-35.0); MCHC 35.4 g/dL (31.0-37.0); MCV 86.5 fL (80.0-100.0); Mean Platelet Volume 10.5; Monocytes # (A) 0.4 k/uL (0-1.0); Monocytes % (A) 6 %; Neutrophils # (A) 3.9 k/uL (1.3-7.7); Neutrophils % (A) 58 %; Platelet Count 174 k/uL (150-450); RBC 5.06 m/uL (4.30-5.90); RDW 13.4 % (11.5-15.5); WBC 6.8 k/uL (3.8-10.6)
[2020-05-02 07:52] LABS: Ketones,Urine 2+ (Negative)
[2020-05-02 09:03] LABS: ALT 50 U/L (4-49); AST 33 U/L (17-59); African American GFR (CKD) >90 (>60 ml/min/1.73 sqM); Albumin 3.8 g/dL (3.5-5.0); Alkaline Phosphatase 71 U/L (38-126); Amylase 35 U/L (30-110); Anion Gap 5 mmol/L; Blood Urea Nitrogen 16 mg/dL (9-20); Calcium 8.8 mg/dL (8.4-10.2); Carbon Dioxide 28 mmol/L (22-30); Chloride 105 mmol/L (98-107); Glucose 230 mg/dL (74-99); Lipase 48 U/L (23-300); Non-African American GFR(CKD) >90 (>60 ml/min/1.73 sqM); Potassium 4.2 mmol/L (3.5-5.1); Sodium 138 mmol/L (137-145); Total Bilirubin 0.9 mg/dL (0.2-1.3); Total Protein 6.4 g/dL (6.3-8.2)
[2020-05-02 09:16] VITALS: BP 131/91; PULSE 91; RESP 17
== END 2020-05-02 09:46 | disposition home or self-care (01) ==
LOC: EC 05:49
DX: K80.20 Calculus of gallbladder without cholecystitis without obstruction (principal); J45.909 Unspecified asthma, uncomplicated; E11.9 Type 2 diabetes mellitus without complications; U07.1 COVID-19; E78.5 Hyperlipidemia, unspecified; F41.9 Anxiety disorder, unspecified; F32.9 Major depressive disorder, single episode, unspecified; Z79.4 Long term (current) use of insulin; Z79.899 Other long term (current) drug therapy; Z79.51 Long term (current) use of inhaled steroids; Z88.5 Allergy status to narcotic agent
CPT/HCPCS: 36415; 80053; 82150; 83605; 83690; 85025; 81003; 76705; 99284; 96374; 96375; 96361 ×3; J2405; J1170

== ENCOUNTER 2020-05-20 16:13 | Emergency (ER) | payer OTHER ==
[2020-05-20 16:19] LABS: Glucose,Whole Blood 360 mg/dL (75-99)
[2020-05-20] MEDS ORDERED: ONDANSETRON 4 MG/2 ML VIAL IVP STA (16:30)
[2020-05-20] MEDS ORDERED: SODIUM CHLORIDE 0.9% 1,000 ML IV STA (16:30)
--- NOTE | 2020-05-20 16:34 | ED ---
General Adult HPI - General Chief complaint: Dizziness Stated complaint: dizziness/chest pain/high blood sugar Time Seen by Provider: 05/20/20 16:21 Source: patient Mode of arrival: ambulatory Limitations: no limitations - History of Present Illness Initial comments: Dictation was produced using [employer] dictation software. please excuse any grammatical, word or spelling errors. This patient was cared for during a federal and state declared state of emergency secondary to Covid 19 Chief Complaint: 39-year-old male with past medical history of type 2 diabetes, insulin dependence presents with nausea, chest pain, dizziness, right upper quadrant abdominal pain. History of Present Illness: Patient is a 39-year-old insulin-dependent diabetic. He has chest pain nausea and right upper quadrant abdominal pain. Patient states she's been having symptoms for the last 2-3 hours. He went to see specialists at urgent care who told him to come to the emergency department. Patient had allegedly high blood sugars in the 500 range earlier today. He forgot to take his Lantus last night. He takes NovoLog with each meal. All the symptoms that patient lists that he is most concerned about his gallbladder is right upper quadrant abdominal pain. Patient has history of cholelithiasis outpatient cholecystectomy scheduled however he tested positive for rotavirus and was forced to reschedule. Patient complains of some mild lower right sharp chest pain The ROS documented in this emergency department record has been reviewed and co nfirmed by me. Those systems with pertinent positive or negative responses have been documented in the HPI. All other systems are other negative and/or noncontributory. PHYSICAL EXAM: General Impression: Alert and oriented x3, not in acute distress HEENT: Normocephalic atraumatic, extra-ocular movements intact, pupils equal and reactive to light bilaterally, mucous membranes moist. Cardiovascular: Heart regular rate and rhythm Chest: Able to complete full sentences, no retractions, no tachypnea Abdomen: abdomen soft, positive Shirley sign, non-distended, no organomegaly Musculoskeletal: Pulses present and equal in all extremities, no peripheral edema Motor: no focal deficits noted Neurological: CN II-XII grossly intact, no focal motor or sensory deficits noted Skin: Intact with no visualized rashes Psych: Normal affect and mood ED course: 39-year-old male presents with nausea, dizziness, right upper quadrant abdominal pain. Vital Signs upon arrival are within acceptable limits. Laboratory evaluation obtained. Hemoconcentration with hemoglobin of 17.8, metabolic panel shows glucose of 348, rest of labs are within acceptable limits. Coronal virus test is negative. Patient's troponin 0.014. Gallbladder ultrasound shows no evidence for acute cholecystitis. Chest x-ray is nonacute. Patient reevaluated at bedside at 6:40 PM. He denies any chest pain or shortness of breath. He feels much better. Patient is agreeable for discharge. Return parameters discussed. Patient is told to follow-up with his general surgeon for outpatient cholecystectomy for cholelithiasis. EKG interpretation: Ventricular rate 84, normal sinus rhythm,. Interval and 60, QRS 104, QTC 451. No MI prolongation, no QTC prolongation, no ST or T-wave changes noted. EKG compared to 03/24/2020 showing no changes. Overall, this EKG is unremarkable - Related Data Home Medications Medication Instructions Recorded Confirmed Insulin Aspart [NovoLOG Flexpen] 25 units SQ AC-TID 04/29/17 05/02/20 Insulin Glargine [Lantus] 80 unit SQ HS 04/29/17 05/02/20 Albuterol Inhaler [Ventolin Hfa 1 - 2 puff INHALATION RT-Q4H PRN 03/24/20 05/02/20 Inhaler] Alogliptin Benzoate [Alogliptin] 25 mg PO HS 03/24/20 05/02/20 Cholecalciferol [Vitamin D3 (25 1,000 unit PO DAILY 03/24/20 05/02/20 Mcg = 1000 Iu)] Pravastatin Sodium [Pravachol] 80 mg PO HS 03/24/20 05/02/20 buPROPion [Wellbutrin] 100 mg PO DAILY 03/24/20 05/02/20 lisinopriL [Zestril] 2.5 mg PO DAILY 03/24/20 05/02/20 Mometasone/Formoterol [Dulera 100 2 puff INHALATION RT-DAILY 05/02/20 05/02/20 Mcg-5 Mcg Inhaler] Naproxen 500 mg PO BID PRN 05/02/20 05/02/20 Allergies Allergy/AdvReac Type Severity Reaction Status Date / Time propoxyphene napsylate Allergy Anaphylaxis Verified 05/20/20 16:18 [From Darvocet-N 100] codeine AdvReac Nausea & Verified 05/20/20 16:18 Vomiting Review of Systems ROS Statement: Those systems with pertinent positive or pertinent negative responses have been documented in the HPI. ROS Other: All systems not noted in ROS Statement are negative. Past Medical History Past Medical History: Asthma, Diabetes Mellitus, Hyperlipidemia, Syncope Additional Past Medical History / Comment(s): ring cut left finger and got infection of mrsa History of Any Multi-Drug Resistant Organisms: MRSA Date of last positivie culture/infection: 2007 MDRO Source:: right leg, right arm, right knee Past Surgical History: Orthopedic Surgery Additional Past Surgical History / Comment(s): Bilateral eye lasik, wisdom teeth, Past Psychological History: Anxiety, Depression Smoking Status: Never smoker Past Alcohol Use History: None Reported Past Drug Use History: None Reported General Exam Limitations: no limitations Course Vital Signs 05/20/20 16:16 Temperature 97.9 F Pulse Rate 81 Respiratory 18 Rate Blood Pressure 137/92 O2 Sat by Pulse 97 Oximetry Medical Decision Making - Lab Data Result diagrams: 05/20/20 16:58 05/20/20 16:58 Lab Results 05/20/20 05/20/20 05/20/20 Range/Units 16:15 16:58 16:58 WBC 7.9 (3.8-10.6) k/uL RBC 5.67 (4.30-5.90) m/uL Hgb 17.8 H (13.0-17.5) gm/dL Hct 50.3 (39.0-53.0) % MCV 88.7 (80.0-100.0) fL MCH 31.4 (25.0-35.0) pg MCHC 35.4 (31.0-37.0) g/dL RDW 13.1 (11.5-15.5) % Plt Count 211 (150-450) k/uL MPV 9.4 Neutrophils % 56 % Lymphocytes % 34 % Monocytes % 6 % Eosinophils % 1 % Basophils % 1 % Neutrophils # 4.4 (1.3-7.7) k/uL Lymphocytes # 2.7 (1.0-4.8) k/uL Monocytes # 0.5 (0-1.0) k/uL Eosinophils # 0.1 (0-0.7) k/uL Basophils # 0.1 (0-0.2) k/uL Sodium 138 (137-145) mmol/L Potassium 4.4 (3.5-5.1) mmol/L Chloride 97 L (98-107) mmol/L Carbon Dioxide 27 (22-30) mmol/L Anion Gap 14 mmol/L BUN 18 (9-20) mg/dL Creatinine 0.81 (0.66-1.25) mg/dL Est GFR (CKD-EPI)AfAm >90 (>60 ml/min/1.73 sqM) Est GFR (CKD-EPI)NonAf >90 (>60 ml/min/1.73 sqM) Glucose 348 H (74-99) mg/dL POC Glucose (mg/dL) 360 H (75-99) mg/dL POC Glu Rawhide Trimmer ID [place], Teresa Calcium 10.4 H (8.4-10.2) mg/dL Magnesium 1.8 (1.6-2.3) mg/dL Total Bilirubin 0.8 (0.2-1.3) mg/dL Conjugated Bilirubin 0.0 (0.0-0.3) mg/dL Unconjugated Bilirubin 0.6 (0.0-1.1) mg/dL Delta Bilirubin 0.2 (0.0-0.2) mg/dL AST 31 (17-59) U/L ALT 55 H (4-49) U/L Alkaline Phosphatase 89 (38-126) U/L Troponin I (0.000-0.034) ng/mL Total Protein 8.0 (6.3-8.2) g/dL Albumin 5.0 (3.5-5.0) g/dL Coronavirus (PCR) (Not Detectd) 05/20/20 05/20/20 Range/Units 16:58 16:58 WBC (3.8-10.6) k/uL RBC (4.30-5.90) m/uL Hgb (13.0-17.5) gm/dL Hct (39.0-53.0) % MCV (80.0-100.0) fL MCH (25.0-35.0) pg MCHC (31.0-37.0) g/dL RDW (11.5-15.5) % Plt Count (150-450) k/uL MPV Neutrophils % % Lymphocytes % % Monocytes % % Eosinophils % % Basophils % % Neutrophils # (1.3-7.7) k/uL Lymphocytes # (1.0-4.8) k/uL Monocytes # (0-1.0) k/uL Eosinophils # (0-0.7) k/uL Basophils # (0-0.2) k/uL Sodium (137-145) mmol/L Potassium (3.5-5.1) mmol/L Chloride (98-107) mmol/L Carbon Dioxide (22-30) mmol/L Anion Gap mmol/L BUN (9-20) mg/dL Creatinine (0.66-1.25) mg/dL Est GFR (CKD-EPI)AfAm (>60 ml/min/1.73 sqM) Est GFR (CKD-EPI)NonAf (>60 ml/min/1.73 sqM) Glucose (74-99) mg/dL POC Glucose (mg/dL) (75-99) mg/dL POC Glu [place] Trimmer ID Calcium (8.4-10.2) mg/dL Magnesium (1.6-2.3) mg/dL Total Bilirubin (0.2-1.3) mg/dL Conjugated Bilirubin (0.0-0.3) mg/dL Unconjugated Bilirubin (0.0-1.1) mg/dL Delta Bilirubin (0.0-0.2) mg/dL AST (17-59) U/L ALT (4-49) U/L Alkaline Phosphatase (38-126) U/L Troponin I 0.014 (0.000-0.034) ng/mL Total Protein (6.3-8.2) g/dL Albumin (3.5-5.0) g/dL Coronavirus (PCR) Not Detected (Not Detectd) Disposition Clinical Impression: Dehydration Disposition: HOME SELF-CARE Condition: Good Instructions (If sedation given, give patient instructions): Dizziness (ED) Is patient prescribed a controlled substance at d/c from ED?: No Referrals: Yesica Hinds MD [Primary Care Provider] - 1-2 days Jacquelyn Russell MD [STAFF PHYSICIAN] - 1-2 days Time of Disposition: 18:42
[2020-05-20 17:11] LABS: Basophils # (A) 0.1 k/uL (0-0.2); Basophils % (A) 1 %; Eosinophils # (A) 0.1 k/uL (0-0.7); Eosinophils % (A) 1 %; HCT 50.3 % (39.0-53.0); HGB 17.8 gm/dL (13.0-17.5); Lymphocytes # (A) 2.7 k/uL (1.0-4.8); Lymphocytes % (A) 34 %; MCH 31.4 pg (25.0-35.0); MCHC 35.4 g/dL (31.0-37.0); MCV 88.7 fL (80.0-100.0); Mean Platelet Volume 9.4; Monocytes # (A) 0.5 k/uL (0-1.0); Monocytes % (A) 6 %; Neutrophils # (A) 4.4 k/uL (1.3-7.7); Neutrophils % (A) 56 %; Platelet Count 211 k/uL (150-450); RBC 5.67 m/uL (4.30-5.90); RDW 13.1 % (11.5-15.5); WBC 7.9 k/uL (3.8-10.6)
[2020-05-20 17:27] LABS: ALT 55 U/L (4-49); AST 31 U/L (17-59); African American GFR (CKD) >90 (>60 ml/min/1.73 sqM); Alkaline Phosphatase 89 U/L (38-126); Anion Gap 14 mmol/L; Bilirubin, Delta 0.2 mg/dL (0.0-0.2); Bilirubin,Unconjugated 0.6 mg/dL (0.0-1.1); Blood Urea Nitrogen 18 mg/dL (9-20); Calcium 10.4 mg/dL (8.4-10.2); Carbon Dioxide 27 mmol/L (22-30); Chloride 97 mmol/L (98-107); Glucose 348 mg/dL (74-99); Magnesium 1.8 mg/dL (1.6-2.3); Non-African American GFR(CKD) >90 (>60 ml/min/1.73 sqM); Potassium 4.4 mmol/L (3.5-5.1); Sodium 138 mmol/L (137-145); Total Bilirubin 0.8 mg/dL (0.2-1.3)
--- NOTE | 2020-05-20 17:37 | XR ---
EXAMINATION TYPE: XR chest 1V portable DATE OF EXAM: 05/20/2020 COMPARISON: 03/24/2020. HISTORY: Chest pain. TECHNIQUE: Single frontal view of the chest is obtained. FINDINGS: There is no focal air space opacity, pleural effusion, or pneumothorax seen. The cardiac silhouette size is within normal limits. The osseous structures are intact. IMPRESSION: No acute process.
--- NOTE | 2020-05-20 18:34 | US ---
EXAMINATION TYPE: US gallbladder DATE OF EXAM: 05/20/2020 COMPARISON: NONE CLINICAL HISTORY: ruq pain. RUQ pain, nausea, gallstones EXAM MEASUREMENTS: Liver Length: 16.7 cm Gallbladder Wall: 0.3 cm CBD: 0.4 cm Right Kidney: 12.1 x 5.5 x 5.0 cm Pancreas: Obscured by bowel gas Liver: attenuating Gallbladder: filled with stones Evidence for sonographic Shirley's sign: no CBD: appears wnl Right Kidney: no evidence of hydronephrosis IMPRESSION: Cholelithiasis without sonographic evidence for acute cholecystitis.
[2020-05-20 18:59] VITALS: BP 128/78; PULSE 78; RESP 16; TEMP 97.8
== END 2020-05-20 18:57 | disposition home or self-care (01) ==
LOC: EC 16:13
DX: E86.0 Dehydration (principal); J45.909 Unspecified asthma, uncomplicated; E78.5 Hyperlipidemia, unspecified; E11.9 Type 2 diabetes mellitus without complications; F41.9 Anxiety disorder, unspecified; F32.9 Major depressive disorder, single episode, unspecified; Z79.4 Long term (current) use of insulin; Z79.899 Other long term (current) drug therapy; Z79.51 Long term (current) use of inhaled steroids; Z88.5 Allergy status to narcotic agent; Z88.8 Allergy status to other drugs, medicaments and biological substances; Z90.49 Acquired absence of other specified parts of digestive tract; Z20.822 Contact with and (suspected) exposure to COVID-19
CPT/HCPCS: 36415; 93005; 80053; 82248; 83735; 84484; 85025; 87635; 71045; 76705; 99284; 96374; 96361; J2405

== ENCOUNTER 2020-06-07 08:59 | Day surgery (SDC) | payer OTHER ==
[2020-06-03 15:24] VITALS: BMI 33.9
--- NOTE | 2020-06-07 07:09 | P.GSHP ---
History of Present Illness H&P Date: 06/07/20 CHIEF COMPLAINT: Cholecystitis HISTORY OF PRESENT ILLNESS: The patient is a 40-year-old male who presents with history of epigastric including right upper quadrant abdominal pain. He had a recent attack 3 weeks ago from acute gallstone attack and underwent diagnostic studies for the gallbladder. Separately his clinical picture is consistent with cholecystitis. Now he presents for surgical intervention. PAST MEDICAL HISTORY: Please see list and reviewed PAST SURGICAL HISTORY: Please see list and reviewed MEDICATIONS: Please see list and reviewed ALLERGIES: Please see list and reviewed SOCIAL HISTORY: No illicit drug use FAMILY HISTORY: Pertinent for gallbladder disease REVIEW OF ORGAN SYSTEMS: CONSTITUTIONAL: No fevers or chills. No recent weight loss. EYES: Denies any trouble with vision. No glasses. HEENT: No difficulties with hearing. No nosebleeds. No difficulty swallowing. RESPIRATORY: Denies pneumonia. Has asthma. CARDIOVASCULAR: Denies any chest pain, palpitations, or recent heart attacks. Has hypertension. Has hyperlipidemia. GASTROINTESTINAL: Denies fatty food intolerance. Denies change in bowel habits and gas bloat. GENITOURINARY: Denies any blood in urine or increased urinary frequency. NEUROLOGICAL: Denies any numbness or tingling along the distal extremities. No seizure disorders or headaches. MUSCULOSKELETAL: Has back pain, stiffness or joint arthritis. SKIN: No current skin cancer. No rash. PSYCHIATRIC: Denies current depression or suicidal thoughts. ENDOCRINE: Denies current thyroid disorders. Has blood sugar glucose intolerance. HEME/LYMPHATIC: Denies any lumps and bumps around the neck. No recent deep venous thrombosis. ALLERGY/IMMUNOLOGY: No immunoglobulin therapy. No immune deficiencies. BREAST: Denies current breast lumps, pain or nipple discharge. PHYSICAL EXAM: VITAL SIGNS: Afebrile vital signs stable Patient is a 39-year-old male. CONSTITUTIONAL: Well developed and in no acute distress. Vitals reviewed. EYES: Conjuctivae without sclera icterus. Extraocular movements grossly intact. HEAD, EARS, NOSE, THROAT: Moist buccal mucosa. Head is atraumatic, normocephalic. Hears conversational speech. No nasal drainage. NECK: Supple. No JV distention. No thyroidomegaly. RESPIRATORY: Non-labored respirations and equal bilateral excursions. No gross wheezes. CARDIOVASCULAR: Regular rate and rhythm. Extremities without moderate edema. Palpable 2+ radial pulses. ABDOMEN: Soft. Nondistended. Tender right upper quadrant. LYMPH: No neck lymphadenopathy. MUSCULOSKELETAL: Nail and fingers with good capillary refill. SKIN: Warm and well perfused with good skin turgor. NEUROLOGIC: Cranial nerves II through XII grossly intact. Sensation upper and extremities intact. No focal or lateralizing signs. PSYCH: Appropriate affect. Alert and oriented to person, place and time. Displays appropriate insight. LABS: Reviewed LFT liver enzyme elevated. BSG over 300+ STUDIES: Ultrasound of the gallbladder independently reviewed demonstrating multiple gallstones and fatty liver disease. This is my independent interpretation. EKG reviewed with cannot rule out anterior infarct, undetermined age. Chest Xray independently reviewed without acute process. ASSESSMENT: 1. Symptomatic gallstones 2. Chronic cholecystitis PLAN: 1. Will need a robotic cholecystectomy possible open. Benefits and risks were described. 2. Heparin for DVT prophylaxis 5000 units. 3. Antibiotic prophylaxis. 4. He is elevated risk for complications with pre-existing heart disease, uncontrolled diabetes. 5. Repeat labs including blood sugar. Past Medical History Past Medical History: Asthma, Diabetes Mellitus, GERD/Reflux, Hyperlipidemia, Hypertension, Syncope Additional Past Medical History / Comment(s): cut to left ring finger and got infection of mrsa, GALLBLADDER DISORDER History of Any Multi-Drug Resistant Organisms: MRSA Date of last positivie culture/infection: 2007 MDRO Source:: right leg, right arm, right knee, lt ring finger Past Surgical History: Orthopedic Surgery Additional Past Surgical History / Comment(s): Bilateral eye lasik, wisdom teeth, lt ring finger sx to remove mrsa, Past Anesthesia/Blood Transfusion Reactions: No Reported Reaction Smoking Status: Never smoker - Past Family History Mother Family Medical History: No Reported History Medications and Allergies Home Medications Medication Instructions Recorded Confirmed Type Insulin Aspart [NovoLOG Flexpen] 30 units SQ AC-TID 04/29/17 06/03/20 History Insulin Glargine [Lantus] 90 unit SQ HS 04/29/17 06/03/20 History Albuterol Inhaler [Ventolin Hfa 1 - 2 puff INHALATION RT-Q4H PRN 03/24/20 06/03/20 History Inhaler] Alogliptin Benzoate [Alogliptin] 25 mg PO HS 03/24/20 06/03/20 History Cholecalciferol [Vitamin D3 (25 1,000 unit PO DAILY 03/24/20 06/03/20 History Mcg = 1000 Iu)] Pravastatin Sodium [Pravachol] 80 mg PO HS 03/24/20 06/03/20 History buPROPion [Wellbutrin] 100 mg PO DAILY 03/24/20 06/03/20 History lisinopriL [Zestril] 2.5 mg PO HS 03/24/20 06/03/20 History Mometasone/Formoterol [Dulera 100 2 puff INHALATION RT-DAILY 05/02/20 06/03/20 History Mcg-5 Mcg Inhaler] Naproxen 500 mg PO BID PRN 05/02/20 06/03/20 History Allergies Allergy/AdvReac Type Severity Reaction Status Date / Time propoxyphene napsylate Allergy Anaphylaxis Verified 06/03/20 15:08 [From [place]zz[place]-N 100] codeine AdvReac Nausea & Verified 06/03/20 15:08 Vomiting
[~2020-06-07 08:59] MED LIST: ACETAMINOPHEN TAB 500 MG TAB PO STA; DEXAMETHASONE SOD PHOSPHATE 4 MG/ML 1 ML VIAL IV ONE; GABAPENTIN 300 MG CAP PO STA; HEPARIN SODIUM,PORCINE 5,000 UNIT/ML 1 ML VIAL SQ PRN; HYDROmorphone 0.5 MG/0.5 ML SYRINGE IVP PRN; INDOCYANINE GREEN 25 MG VIAL IV STA; LACTATED RINGERS 1,000 ML IV SCH; MELOXICAM 7.5 MG TAB PO STA; ONDANSETRON 4 MG/2 ML VIAL IVP ONE; TAMSULOSIN 0.4 MG CAP.ER.24H PO STA
[2020-06-07 09:58] LABS: Glucose,Whole Blood 164 mg/dL (75-99)
[2020-06-07 10:24] LABS: ALT 49 U/L (4-49); African American GFR (CKD) >90 (>60 ml/min/1.73 sqM); Anion Gap 9 mmol/L; Basophils # (A) 0.1 k/uL (0-0.2); Basophils % (A) 1 %; Blood Urea Nitrogen 17 mg/dL (9-20); Carbon Dioxide 27 mmol/L (22-30); Chloride 103 mmol/L (98-107); Eosinophils # (A) 0.1 k/uL (0-0.7); Eosinophils % (A) 2 %; Glucose 185 mg/dL (74-99); HCT 49.6 % (39.0-53.0); HGB 17.2 gm/dL (13.0-17.5); Lymphocytes # (A) 2.5 k/uL (1.0-4.8); Lymphocytes % (A) 34 %; MCH 30.7 pg (25.0-35.0); MCHC 34.6 g/dL (31.0-37.0); MCV 88.7 fL (80.0-100.0); Mean Platelet Volume 9.9; Monocytes # (A) 0.5 k/uL (0-1.0); Monocytes % (A) 6 %; Neutrophils # (A) 4.3 k/uL (1.3-7.7); Neutrophils % (A) 57 %; Non-African American GFR(CKD) >90 (>60 ml/min/1.73 sqM); Platelet Count 228 k/uL (150-450); RBC 5.59 m/uL (4.30-5.90); RDW 13.7 % (11.5-15.5); Sodium 139 mmol/L (137-145); Total Bilirubin 1.3 mg/dL (0.2-1.3); WBC 7.6 k/uL (3.8-10.6)
[2020-06-07 10:31] LABS: AST 50 U/L (17-59); Albumin 4.8 g/dL (3.5-5.0); Alkaline Phosphatase 67 U/L (38-126); Potassium 5.9 mmol/L (3.5-5.1); Total Protein 7.9 g/dL (6.3-8.2)
[2020-06-07] MEDS ORDERED: HYDROmorphone (PF) 1 MG/ML ONE (11:10)
[2020-06-07] MEDS ORDERED: PROPOFOL 10 MG/ML 20 ML VIAL IV ONE (11:10)
[2020-06-07] MEDS ORDERED: fentaNYL (PF) 50 MCG/ML 2 ML AMP ONE (11:10)
[2020-06-07] MEDS ORDERED: NEOSTIGMINE 1 MG/ML 10 ML VIAL ONE (11:10)
[2020-06-07] MEDS ORDERED: INDOCYANINE GREEN 25 MG VIAL IV ONE (11:10)
[2020-06-07] MEDS ORDERED: ROCURONIUM 10 MG/ML (5 ML VIAL) IV ONE (11:10)
[2020-06-07] MEDS ORDERED: LIDOCAINE 1% INJ 10MG/ML (20 ML MDV) ONE (11:10)
[2020-06-07] MEDS ORDERED: ePHEDrine SULFATE/0.9% NACL/PF 50 MG/5 ML SYRINGE IV ONE (11:10)
[2020-06-07] MEDS ORDERED: MIDAZOLAM 2 MG/2 ML VIAL ONE (11:10)
[2020-06-07] MEDS ORDERED: GLYCOPYRROLATE 0.2 MG/ML 2 ML VIAL ONE (11:10)
[2020-06-07] MEDS ORDERED: BUPIVACAINE-EPI 0.5%-1:200,000 10 ML VIAL SQ ONE (11:41)
[2020-06-07] MEDS ORDERED: LACTATED RINGERS 1,000 ML IV ONE (12:33)
[2020-06-07] MEDS ORDERED: LEVOFLOXACIN 750MG-D5W PMX 750 MG in DEXTROSE/WATER 1 150ML.BAG IVPB STA (12:50)
[2020-06-07 12:56] LABS: Glucose,Whole Blood 216 mg/dL (75-99)
[2020-06-07 12:59] VITALS: TEMP 97.4
[2020-06-07] MEDS ORDERED: SIMETHICONE 80 MG CHEWABLE PO SCH (13:00)
--- NOTE | 2020-06-07 13:01 | P.OP ---
Date of Procedure: 06/07/20 Description of Procedure: SURGEON: JACQUELYN RUSSELL MD PREOPERATIVE DIAGNOSES: 1. Symptomatic gallstones 2. Right upper quadrant abdominal pain 3. Diabetes type 2, uncontrolled, insulin-dependent 4. Hypertensive heart disease 5. Anxiety disorder 6. Depressive disorder 7. Hyperlipidemia 8. Chronic obstructive pulmonary disease with asthma 9. Obesity due to excess calories, BMI 33.2. POSTOPERATIVE DIAGNOSES: 1. Symptomatic gallstones 2. Right upper quadrant abdominal pain 3. Diabetes type 2, uncontrolled, insulin-dependent 4. Hypertensive heart disease 5. Anxiety disorder 6. Depressive disorder 7. Hyperlipidemia 8. Chronic obstructive pulmonary disease with asthma 9. Obesity due to excess calories, BMI 33.2. 10. Peritoneal adhesions, right upper quadrant 11. Fatty liver disease with hepatomegaly OPERATION: 1. Robotic-assisted da Angie Xi laparoscopic lysis of adhesions 2. Robotic-assisted da Angie Xi laparoscopic cholecystectomy, multiport with FIREFLY ESTIMATED BLOOD LOSS: 20 mL. SPECIMENS REMOVED: Gallbladder. COMPLICATIONS: None. OPERATIVE FINDINGS: 1. Moderate scarring over entire gallbladder with peritoneal adhesions, pericholecystic with features of chronic cholecystitis 2. Multiple gallstones 3. Moderate intrahepatic gallbladder adding complexity to case 4. Resection along the cystic duct infundibulum performed 5. Fatty liver disease with hepatomegaly INDICATIONS: The patient is a 40-year-old male who presents with symptomatic gallstones. Robotic assisted laparoscopic approach was described. Benefits and risks of the procedure including but not limited to bleeding, infection, injury to the biliary tree was described. Informed consent was obtained. DESCRIPTION OF PROCEDURE: Patient was brought to the operating room, placed in supine position. After general induction, the abdomen had been prepped and draped in standard sterile fashion. The robotic da Angie XI system was primed. After a timeout protocol was performed, the patient had been prepped and draped in standard sterile fashion. The patient was injected with indocyanine green. A 5 mm 0 degrees laparoscopic trocar entry was performed along the left upper quadrant. The abdomen insufflated to 15 mmHg pressure which was tolerated well. Diagnostic laparoscopy demonstrated no injury to bowel viscera or mesentery. The liver surface was unremarkable. Next, two 8 mm robotic ports were placed along the right upper abdomen. The camera 8-mm port was maintained along the epigastrium. Another 8 mm port was placed along the left upper abdominal wall after exchanging the 5 mm port. Please note that the ports were placed at least 10 to 15 cm away from the target anatomy of the gallbladder. The robot was docked along the left lateral abdomen. The patient was repositioned in reverse Trendelenburg position. Using a grasper for arm 3, a grasper for arm 4, including hook cautery for arm 1, the robotic system was docked and primed as described. A vessel sealer was added for hemostasis. Instruments were interchanged by the assistant maintenance manager including hook cautery, Bovie cautery and clip appliers. I had sat at the console. The gallbladder was scarred with peritoneal adhesions. Lysis of adhesions was performed to free the gallbladder from the surrounding tissues. Next attention was brought to the infundibulum and cystic structures. The gallbladder was moderately intrahepatic adding complexity to procedure. Additionally, hepatomegaly is present with fatty liver disease. The infundibulum and cystic duct were dissected free from surrounding tissues. Hemostasis was checked using vessel sealer. Additionally, the abdomen was dried of bile and blood using sponge. The cystic duct was isolated. A combination of dome down technique was performed to carefully isolate the cystic duct. FIREFLY was used to identify the cystic artery and cystic structures. A critical view of safety was obtained. Large PLASTIC clips were used throughout the entire case. Using a clip industrial engineering director, 2 clips were placed at the junction of the infundibulum an d cystic duct. The cystic duct was divided between clips. Next, the cystic artery was similarly clipped and cauterized. Electro-Bovie cautery was used to remove the gallbladder from the hepatic fossa. Hemostasis was checked and found to be adequate. The robot was undocked. I re-scrubbed into the case. Using a 10 mm Endo Catch bag via the left upper quadrant incision, the specimen was removed from the abdominal cavity. All pneumoperitoneum instruments were evacuated from the abdominal cavity. The incisions were reapproximated using 4-0 Monocryl in an interrupted subcuticular fashion. The left upper quadrant fascia defect was oversewn using 0 Vicryl and Cj Whitt. Please note along the trocar sites, local anesthetic was placed as a field block prior to insertion of all instruments. Liquid glue was applied to the skin. At the end of the procedure needle, sponge, and instrument count had been verified correct by the surgical lead. The patient was transferred to postanesthesia care unit in stable condition. Intraoperative films were shared with the patient's family. Plan - Discharge Summary Discharge Rx Participant: No New Discharge Prescriptions: New Acetaminophen Tab [Tylenol Tab] 1,000 mg PO Q6HR PRN #30 tablet PRN Reason: Pain Continue Insulin Glargine [Lantus] 90 unit SQ HS Insulin Aspart [NovoLOG Flexpen] 30 units SQ AC-TID buPROPion [Wellbutrin] 100 mg PO DAILY Alogliptin Benzoate [Alogliptin] 25 mg PO HS Pravastatin Sodium [Pravachol] 80 mg PO HS Cholecalciferol [Vitamin D3 (25 Mcg = 1000 Iu)] 1,000 unit PO DAILY lisinopriL [Zestril] 2.5 mg PO HS Albuterol Inhaler [Ventolin Hfa Inhaler] 1 - 2 puff INHALATION RT-Q4H PRN PRN Reason: Shortness Of Breath Mometasone/Formoterol [Dulera 100 Mcg-5 Mcg Inhaler] 2 puff INHALATION RT- DAILY Naproxen 500 mg PO BID PRN PRN Reason: Pain Discharge Medication List Insulin Aspart [NovoLOG Flexpen] 30 units SQ AC-TID 04/29/17 [History] Insulin Glargine [Lantus] 90 unit SQ HS 04/29/17 [History] Albuterol Inhaler [Ventolin Hfa Inhaler] 1 - 2 puff INHALATION RT-Q4H PRN 03/24/20 [History] Alogliptin Benzoate [Alogliptin] 25 mg PO HS 03/24/20 [History] Cholecalciferol [Vitamin D3 (25 Mcg = 1000 Iu)] 1,000 unit PO DAILY 03/24/20 [History] Pravastatin Sodium [Pravachol] 80 mg PO HS 03/24/20 [History] buPROPion [Wellbutrin] 100 mg PO DAILY 03/24/20 [History] lisinopriL [Zestril] 2.5 mg PO HS 03/24/20 [History] Mometasone/Formoterol [Dulera 100 Mcg-5 Mcg Inhaler] 2 puff INHALATION RT-DAILY 05/02/20 [History] Naproxen 500 mg PO BID PRN 05/02/20 [History] Acetaminophen Tab [Tylenol Tab] 1,000 mg PO Q6HR PRN #30 tablet 06/07/20 [Rx] Follow up Appointment(s)/Referral(s): Jacquelyn Russell MD [STAFF PHYSICIAN] - 06/11/20 Patient Instructions/Handouts: Low Fat Diet (DC), Laparoscopic Cholecystectomy (DC) Activity/Diet/Wound Care/Special Instructions: Recommend low-fat diet for the next 2 days. No lifting over 10 pounds in 2 weeks until June 21August shower. No bath tub soaks for two weeks until June 21 Diet as tolerated. Use Tylenol and ibuprofen or Aleve scheduled for the next 24-48 hours for best pain relief. Use ice along incisions for today to prevent swelling. Discharge Disposition: HOME SELF-CARE
[2020-06-07] MEDS ORDERED: ONDANSETRON 4 MG/2 ML VIAL IVP ONE (13:13)
[2020-06-07] MEDS ORDERED: INSULIN ASPART (NovoLOG) 100 UNIT/ML VIAL SQ ONE (13:24)
[2020-06-07 13:51] VITALS: RESP 16
[2020-06-07 13:52] VITALS: BP 152/88; PULSE 94
[2020-06-07 14:16] LABS: Glucose,Whole Blood 237 mg/dL (75-99)
== END 2020-06-07 14:57 | disposition home or self-care (01) ==
LOC: OR 08:59
PROVIDERS: ATTEND Surgery Plastic and Reconstructive Surgery
DX: K80.10 Calculus of gallbladder with chronic cholecystitis without obstruction (principal); K66.0 Peritoneal adhesions (postprocedural) (postinfection); K76.0 Fatty (change of) liver, not elsewhere classified; E66.09 Other obesity due to excess calories; Z68.33 Body mass index [BMI] 33.0-33.9, adult; E11.65 Type 2 diabetes mellitus with hyperglycemia; K21.9 Gastro-esophageal reflux disease without esophagitis; J44.9 Chronic obstructive pulmonary disease, unspecified; E78.5 Hyperlipidemia, unspecified; I11.9 Hypertensive heart disease without heart failure; R55 Syncope and collapse; F41.9 Anxiety disorder, unspecified; F32.9 Major depressive disorder, single episode, unspecified; Z86.14 Personal history of Methicillin resistant Staphylococcus aureus infection; Z98.890 Other specified postprocedural states; Z79.4 Long term (current) use of insulin; Z79.51 Long term (current) use of inhaled steroids; Z79.899 Other long term (current) drug therapy; Z88.5 Allergy status to narcotic agent
CPT/HCPCS: 88304; 80053; 84132; 85025; 47562; J2250; J1644; J1100; J2710; J0690; J2405; J2001; J3010; J1170; J1956; J2704

== ENCOUNTER 2020-06-15 22:53 | Emergency (ER) | payer OTHER ==
[2020-06-15 23:05] VITALS: RESP 18; TEMP 98
[2020-06-15 23:26] LABS: Appearance,Urine Clear (Clear); Bilirubin,Urine Negative (Negative); Blood,Urine Negative (Negative); Color,Urine Yellow; Glucose,Urine (UA) 4+ (Negative); Ketones,Urine Negative (Negative); Leukocyte Esterase,Urine Negative (Negative); Nitrite,Urine Negative (Negative); PH, Urine 5.5 (5.0-8.0); Protein,Urine Negative (Negative); Specific Gravity,Urine 1.044 (1.001-1.035); Urobilinogen,Urine <2.0 mg/dL (<2.0)
--- NOTE | 2020-06-15 23:26 | XR ---
EXAMINATION TYPE: XR KUB DATE OF EXAM: 06/15/2020 COMPARISON: 01/03/2020 HISTORY: Abdominal pain TECHNIQUE: 2 views upright FINDINGS: Bowel gas pattern is normal. There is no sign of intestinal obstruction or pneumoperitoneum . Fecal pattern is normal. Lung bases are clear. There are no pathologic calcifications over the kidn eys. IMPRESSION: Nonacute abdomen. No change.
[2020-06-15 23:37] LABS: Basophils # (A) 0.1 k/uL (0-0.2); Basophils % (A) 1 %; Eosinophils # (A) 0.1 k/uL (0-0.7); Eosinophils % (A) 2 %; HCT 49.3 % (39.0-53.0); HGB 17.2 gm/dL (13.0-17.5); Lymphocytes # (A) 3.4 k/uL (1.0-4.8); Lymphocytes % (A) 46 %; MCH 31.3 pg (25.0-35.0); MCHC 34.9 g/dL (31.0-37.0); MCV 89.5 fL (80.0-100.0); Mean Platelet Volume 9.2; Monocytes # (A) 0.4 k/uL (0-1.0); Monocytes % (A) 5 %; Neutrophils # (A) 3.4 k/uL (1.3-7.7); Neutrophils % (A) 46 %; Platelet Count 259 k/uL (150-450); RBC 5.51 m/uL (4.30-5.90); RDW 12.9 % (11.5-15.5); WBC 7.5 k/uL (3.8-10.6)
[2020-06-15 23:46] LABS: ALT 52 U/L (4-49); AST 36 U/L (17-59); African American GFR (CKD) >90 (>60 ml/min/1.73 sqM); Albumin 4.7 g/dL (3.5-5.0); Alkaline Phosphatase 74 U/L (38-126); Anion Gap 11 mmol/L; Blood Urea Nitrogen 17 mg/dL (9-20); Calcium 9.9 mg/dL (8.4-10.2); Carbon Dioxide 26 mmol/L (22-30); Chloride 104 mmol/L (98-107); Glucose 161 mg/dL (74-99); Non-African American GFR(CKD) 83 (>60 ml/min/1.73 sqM); Potassium 4.1 mmol/L (3.5-5.1); Sodium 141 mmol/L (137-145); Total Bilirubin 0.8 mg/dL (0.2-1.3); Total Protein 7.5 g/dL (6.3-8.2)
[2020-06-16] MEDS ORDERED: SODIUM CHLORIDE 0.9% 1,000 ML IV STA (00:07)
[2020-06-16] MEDS ORDERED: HYDROmorphone 0.5 MG/0.5 ML SYRINGE IVP STA (00:07)
[2020-06-16] MEDS ORDERED: ONDANSETRON 4 MG/2 ML VIAL IVP STA (00:07)
--- NOTE | 2020-06-16 00:16 | ED ---
Abdominal Pain HPI - General Chief Complaint: Abdominal Pain Stated Complaint: Abd Pain Time Seen by Provider: 06/15/20 23:54 Source: patient, RN notes reviewed Mode of arrival: ambulatory Limitations: no limitations - History of Present Illness Initial Comments: Patient is a 40-year-old male presents emergency department complaining of left lower quadrant abdominal pain. He notes that he had one bout of diarrhea with no blood. He notes that since about evening he's had an aching pain in the left lower quadrant but recently got worse this evening. He did note that he recently had cholecystectomy surgery within the past month. His surgical scars are healing well with no signs or symptoms of infection. He denied any nausea. He said the pain was about a 4 out of 10 that is constant with no relief. He denied any nausea vomiting constipation fever fatigue chills chest pain shortness of breath. - Related Data Home Medications Medication Instructions Recorded Confirmed Insulin Aspart [NovoLOG Flexpen] 30 units SQ AC-TID 04/29/17 06/03/20 Insulin Glargine [Lantus] 90 unit SQ HS 04/29/17 06/07/20 Albuterol Inhaler [Ventolin Hfa 1 - 2 puff INHALATION RT-Q4H PRN 03/24/20 06/03/20 Inhaler] Alogliptin Benzoate [Alogliptin] 25 mg PO HS 03/24/20 06/03/20 Cholecalciferol [Vitamin D3 (25 1,000 unit PO DAILY 03/24/20 06/03/20 Mcg = 1000 Iu)] Pravastatin Sodium [Pravachol] 80 mg PO HS 03/24/20 06/03/20 buPROPion [Wellbutrin] 100 mg PO DAILY 03/24/20 06/03/20 lisinopriL [Zestril] 2.5 mg PO HS 03/24/20 06/03/20 Mometasone/Formoterol [Dulera 100 2 puff INHALATION RT-DAILY 05/02/20 06/03/20 Mcg-5 Mcg Inhaler] Naproxen 500 mg PO BID PRN 05/02/20 06/03/20 Previous Rx's Medication Instructions Recorded Acetaminophen Tab [Tylenol Tab] 1,000 mg PO Q6HR PRN #30 tablet 06/07/20 Simethicone [Gas-X] 125 mg PO AC-TID PRN #20 capsule 06/07/20 Allergies Allergy/AdvReac Type Severity Reaction Status Date / Time propoxyphene napsylate Allergy Anaphylaxis Verified 06/15/20 23:04 [From Ozzie-N 100] codeine AdvReac Nausea & Verified 06/15/20 23:04 Vomiting Review of Systems ROS Statement: Those systems with pertinent positive or pertinent negative responses have been documented in the HPI. ROS Other: All systems not noted in ROS Statement are negative. Past Medical History Past Medical History: Asthma, Diabetes Mellitus, GERD/Reflux, Hyperlipidemia, Hypertension, Syncope Additional Past Medical History / Comment(s): cut to left ring finger and got infection of mrsa, GALLBLADDER DISORDER, History of Any Multi-Drug Resistant Organisms: MRSA Date of last positivie culture/infection: 2007 MDRO Source:: right leg, right arm, right knee, lt ring finger Past Surgical History: Cholecystectomy, Orthopedic Surgery Additional Past Surgical History / Comment(s): Bilateral eye lasik, wisdom teeth, lt ring finger sx to remove mrsa, Past Anesthesia/Blood Transfusion Reactions: No Reported Reaction Past Psychological History: Anxiety, Depression Smoking Status: Never smoker Past Alcohol Use History: None Reported Past Drug Use History: None Reported - Past Family History Mother Family Medical History: No Reported History General Exam Limitations: no limitations General appearance: alert, in no apparent distress Head exam: Present: atraumatic, normocephalic, normal inspection Eye exam: Present: normal appearance, PERRL, EOMI. Absent: scleral icterus, conjunctival injection, periorbital swelling ENT exam: Present: normal exam, mucous membranes moist Neck exam: Present: normal inspection. Absent: tenderness, meningismus, lymphadenopathy Respiratory exam: Present: normal lung sounds bilaterally. Absent: respiratory distress, wheezes, rales, rhonchi, stridor Cardiovascular Exam: Present: regular rate, normal rhythm, normal heart sounds. Absent: systolic murmur, diastolic murmur, rubs, gallop, clicks GI/Abdominal exam: Present: soft, tenderness (Left lower quadrant), normal bowel sounds. Absent: distended, guarding, rebound, rigid Extremities exam: Present: normal inspection, full ROM, normal capillary refill. Absent: tenderness, pedal edema, joint swelling, calf tenderness Neurological exam: Present: alert, oriented X3, CN II-XII intact Psychiatric exam: Present: normal affect, normal mood Skin exam: Present: warm, dry, intact, normal color, other (Healing surgical scars across abdomen no signs or symptoms of infection.). Absent: rash Course Vital Signs 06/15/20 23:02 Temperature 98.0 F Pulse Rate 81 Respiratory 18 Rate Blood Pressure 152/91 O2 Sat by Pulse 97 Oximetry Medical Decision Making - Medical Decision Making 40 of male complaining of left lower quadrant abdominal pain. Labs: Normal saline, 0.5 mg of Dilaudid, 4mg Zofran, CT of the abdomen and pelvis, KUB ordered. Labs unremarkable. CT negative for any acute process. Case discussed with Dr. Ruiz, decided the patient to discharge home. - Lab Data Result diagrams: 06/15/20 23:24 06/15/20 23:24 Lab Results 06/15/20 06/15/20 06/15/20 Range/Units 23:05 23:24 23:24 WBC 7.5 (3.8-10.6) k/uL RBC 5.51 (4.30-5.90) m/uL Hgb 17.2 (13.0-17.5) gm/dL Hct 49.3 (39.0-53.0) % MCV 89.5 (80.0-100.0) fL MCH 31.3 (25.0-35.0) pg MCHC 34.9 (31.0-37.0) g/dL RDW 12.9 (11.5-15.5) % Plt Count 259 (150-450) k/uL MPV 9.2 Neutrophils % 46 % Lymphocytes % 46 % Monocytes % 5 % Eosinophils % 2 % Basophils % 1 % Neutrophils # 3.4 (1.3-7.7) k/uL Lymphocytes # 3.4 (1.0-4.8) k/uL Monocytes # 0.4 (0-1.0) k/uL Eosinophils # 0.1 (0-0.7) k/uL Basophils # 0.1 (0-0.2) k/uL Sodium 141 (137-145) mmol/L Potassium 4.1 (3.5-5.1) mmol/L Chloride 104 (98-107) mmol/L Carbon Dioxide 26 (22-30) mmol/L Anion Gap 11 mmol/L BUN 17 (9-20) mg/dL Creatinine 1.10 (0.66-1.25) mg/dL Est GFR (CKD-EPI)AfAm >90 (>60 ml/min/1.73 sqM) Est GFR (CKD-EPI)NonAf 83 (>60 ml/min/1.73 sqM) Glucose 161 H (74-99) mg/dL Calcium 9.9 (8.4-10.2) mg/dL Total Bilirubin 0.8 (0.2-1.3) mg/dL AST 36 (17-59) U/L ALT 52 H (4-49) U/L Alkaline Phosphatase 74 (38-126) U/L Total Protein 7.5 (6.3-8.2) g/dL Albumin 4.7 (3.5-5.0) g/dL Urine Color Yellow Urine Appearance Clear (Clear) Urine pH 5.5 (5.0-8.0) Ur Specific [place] 1.044 H (1.001-1.035) Urine Protein Negative (Negative) Urine Glucose (UA) 4+ H (Negative) Urine Ketones Negative (Negative) Urine Blood Negative (Negative) Urine Nitrite Negative (Negative) Urine Bilirubin Negative (Negative) Urine Urobilinogen <2.0 (<2.0) mg/dL Ur Leukocyte Esterase Negative (Negative) - Radiology Data Radiology results: report reviewed, image reviewed Suspected recent cholecystectomy with trace fluid within the surgical bed. No evidence of focal fluid collection to suggest abscess or biloma. Soft tissue gas noted within the soft tissues of left lower quadrant which may be iatrogenic related to recent surgery. Disposition Clinical Impression: Abdominal pain, Diarrhea Disposition: HOME SELF-CARE Condition: Stable Instructions (If sedation given, give patient instructions): Abdominal Pain (ED) Additional Instructions: Please return to the Emergency Department if symptoms worsen or any other concerns. Follow-up with primary care in 2-4 days. Take at home medications as prescribed. Increase oral fluid intake. Avoid any foods that could cause upset stomach. Is patient prescribed a controlled substance at d/c from ED?: No Referrals: Yesica Hinds MD [Primary Care Provider] - 1-2 days Time of Disposition: 01:38
--- NOTE | 2020-06-16 01:24 | CT ---
EXAM: CT Abdomen and Pelvis With Intravenous Contrast CLINICAL HISTORY: ITS.REASON CT Reason: Left lower quadrant pain TECHNIQUE: Axial computed tomography images of the abdomen and pelvis with intravenous contrast. CTDI is 33.07 mGy and DLP is 1544 mGy-cm. This CT exam was performed using one or more of the following dose reduction techniques: automated exposure control, adjustment of the mA and/or kV according to patient size, and/or use of iterative reconstruction technique. COMPARISON: No relevant prior studies available. FINDINGS: Lung bases: Unremarkable. ABDOMEN: Liver: Unremarkable. Gallbladder and bile ducts: Suspected recent cholecystectomy with trace fluid within the surgical bed. No evidence of focal fluid collection. Pancreas: Unremarkable. Spleen: Unremarkable. Adrenals: Unremarkable. Kidneys and ureters: Unremarkable. Stomach and bowel: Unremarkable. PELVIS: Appendix: Appendix is unremarkable Bladder: Unremarkable. Reproductive: Unremarkable as visualized. ABDOMEN and PELVIS: Intraperitoneal space: Unremarkable. Bones/joints: No acute fracture. No dislocation. Soft tissues: Soft tissue gas noted within the soft tissues of the left lower quadrant which may be iatrogenic or related to recent surgery. Trace edema seen within the soft tissues of the anterior abdominal wall. Vasculature: Unremarkable. Lymph nodes: Unremarkable. IMPRESSION: 1. Suspected recent cholecystectomy with trace fluid within the surgical bed. No evidence of focal fluid collection to suggest abscess or biloma. 2. Soft tissue gas noted within the soft tissues of the left lower quadrant which may be iatrogenic or related to recent surgery.
[2020-06-16 02:07] VITALS: BP 130/90; PULSE 80
== END 2020-06-16 02:07 | disposition home or self-care (01) ==
LOC: EC 22:53
DX: R10.32 Left lower quadrant pain (principal); R19.7 Diarrhea, unspecified; E11.9 Type 2 diabetes mellitus without complications; E78.5 Hyperlipidemia, unspecified; I10 Essential (primary) hypertension; J45.909 Unspecified asthma, uncomplicated; K21.9 Gastro-esophageal reflux disease without esophagitis; F41.9 Anxiety disorder, unspecified; F32.9 Major depressive disorder, single episode, unspecified; Z79.4 Long term (current) use of insulin; Z79.51 Long term (current) use of inhaled steroids
CPT/HCPCS: 36415; 80053; 85025; 81003; 74018; 74177; 99284; 96374; 96375; 96361; J2405; J1170; Q9967

== ENCOUNTER 2020-06-25 19:46 | Emergency (ER) | payer OTHER ==
[2020-06-25 20:39] VITALS: BP 143/89; PULSE 93; RESP 20; TEMP 98.1
[2020-06-25] MEDS ORDERED: ONDANSETRON 4 MG/2 ML VIAL IVP STA (21:29)
[2020-06-25] MEDS ORDERED: HYDROmorphone 0.5 MG/0.5 ML SYRINGE IVP STA (21:29)
[2020-06-25] MEDS ORDERED: SODIUM CHLORIDE 0.9% 1,000 ML IV STA (21:29)
--- NOTE | 2020-06-25 21:44 | ED ---
Abdominal Pain HPI - General Chief Complaint: Abdominal Pain Stated Complaint: ABD pain/White stool Time Seen by Provider: 06/25/20 21:29 Source: patient, RN notes reviewed Mode of arrival: ambulatory Limitations: no limitations - History of Present Illness Initial Comments: Patient is a 40-year-old male presents emergency by complaining of abdominal pa in and white stools. He did note that he recently has gallbladder removed on June 07. He noted that the previous couple days he denied a bowel movement all and then when he had 1 today all the fecal matter was white. He did note some minor discomfort, but just wanted to come back sure that the white stool wasn't something alarming. He denied any chest pain shortness of breath headache nausea vomiting diarrhea constipation fever fatigue chills - Related Data Home Medications Medication Instructions Recorded Confirmed Insulin Aspart [NovoLOG Flexpen] 30 units SQ AC-TID 04/29/17 06/03/20 Insulin Glargine [Lantus] 90 unit SQ HS 04/29/17 06/07/20 Albuterol Inhaler [Ventolin Hfa 1 - 2 puff INHALATION RT-Q4H PRN 03/24/20 06/03/20 Inhaler] Alogliptin Benzoate [Alogliptin] 25 mg PO HS 03/24/20 06/03/20 Cholecalciferol [Vitamin D3 (25 1,000 unit PO DAILY 03/24/20 06/03/20 Mcg = 1000 Iu)] Pravastatin Sodium [Pravachol] 80 mg PO HS 03/24/20 06/03/20 buPROPion [Wellbutrin] 100 mg PO DAILY 03/24/20 06/03/20 lisinopriL [Zestril] 2.5 mg PO HS 03/24/20 06/03/20 Mometasone/Formoterol [Dulera 100 2 puff INHALATION RT-DAILY 05/02/20 06/03/20 Mcg-5 Mcg Inhaler] Naproxen 500 mg PO BID PRN 05/02/20 06/03/20 Previous Rx's Medication Instructions Recorded Acetaminophen Tab [Tylenol Tab] 1,000 mg PO Q6HR PRN #30 tablet 06/07/20 Simethicone [Gas-X] 125 mg PO AC-TID PRN #20 capsule 06/07/20 Allergies Allergy/AdvReac Type Severity Reaction Status Date / Time propoxyphene napsylate Allergy Anaphylaxis Verified 06/25/20 20:39 [From Darteresat-N 100] codeine AdvReac Nausea & Verified 06/25/20 20:39 Vomiting Review of Systems ROS Statement: Those systems with pertinent positive or pertinent negative responses have been documented in the HPI. ROS Other: All systems not noted in ROS Statement are negative. Past Medical History Past Medical History: Asthma, Diabetes Mellitus, GERD/Reflux, Hyperlipidemia, Hypertension, Syncope Additional Past Medical History / Comment(s): cut to left ring finger and got infection of mrsa, GALLBLADDER DISORDER, History of Any Multi-Drug Resistant Organisms: MRSA Date of last positivie culture/infection: 2007 MDRO Source:: right leg, right arm, right knee, lt ring finger Past Surgical History: Cholecystectomy, Orthopedic Surgery Additional Past Surgical History / Comment(s): Bilateral eye lasik, wisdom teeth, lt ring finger sx to remove mrsa, Past Anesthesia/Blood Transfusion Reactions: No Reported Reaction Past Psychological History: Anxiety, Depression Smoking Status: Never smoker Past Alcohol Use History: None Reported Past Drug Use History: None Reported - Past Family History Mother Family Medical History: No Reported History General Exam Limitations: no limitations General appearance: alert, in no apparent distress Head exam: Present: atraumatic, normocephalic, normal inspection Eye exam: Present: normal appearance, PERRL, EOMI. Absent: scleral icterus, conjunctival injection, periorbital swelling ENT exam: Present: normal exam, mucous membranes moist Neck exam: Present: normal inspection. Absent: tenderness, meningismus, lymphadenopathy Respiratory exam: Present: normal lung sounds bilaterally. Absent: respiratory distress, wheezes, rales, rhonchi, stridor Cardiovascular Exam: Present: regular rate, normal rhythm, normal heart sounds. Absent: systolic murmur, diastolic murmur, rubs, gallop, clicks GI/Abdominal exam: Present: soft, normal bowel sounds. Absent: distended, tenderness, guarding, rebound, rigid Extremities exam: Present: normal inspection, full ROM, normal capillary refill. Absent: tenderness, pedal edema, joint swelling, calf tenderness Neurological exam: Present: alert, oriented X3, CN II-XII intact Psychiatric exam: Present: normal affect, normal mood Skin exam: Present: warm, dry, intact, normal color. Absent: rash Course Vital Signs 06/25/20 20:37 Temperature 98.1 F Pulse Rate 93 Respiratory 20 Rate Blood Pressure 143/89 O2 Sat by Pulse 98 Oximetry Medical Decision Making - Medical Decision Making 40-year-old male complaining of abdominal pain and weight stool. CT of the abdomen and pelvis, labs, white 5 mg of Dilaudid, 4 mg of Zofran, 1 L normal saline ordered Labs unremarkable except for blood sugar was 381, 90 units of Lantus was o rdered, patient takes his dose at home. Computed tomography scan negative. Case discussed with Dr. Ruiz, patient can discharge home. - Lab Data Result diagrams: 06/25/20 21:54 06/25/20 21:54 Lab Results 06/25/20 06/25/20 06/25/20 Range/Units 21:54 21:54 21:54 WBC 7.1 (3.8-10.6) k/uL RBC 5.18 (4.30-5.90) m/uL Hgb 16.1 (13.0-17.5) gm/dL Hct 46.8 (39.0-53.0) % MCV 90.4 (80.0-100.0) fL MCH 31.2 (25.0-35.0) pg MCHC 34.5 (31.0-37.0) g/dL RDW 12.8 (11.5-15.5) % Plt Count 211 (150-450) k/uL MPV 10.3 Neutrophils % 49 % Lymphocytes % 41 % Monocytes % 6 % Eosinophils % 2 % Basophils % 1 % Neutrophils # 3.5 (1.3-7.7) k/uL Lymphocytes # 2.9 (1.0-4.8) k/uL Monocytes # 0.4 (0-1.0) k/uL Eosinophils # 0.1 (0-0.7) k/uL Basophils # 0.1 (0-0.2) k/uL Sodium 134 L (137-145) mmol/L Potassium 4.6 (3.5-5.1) mmol/L Chloride 95 L (98-107) mmol/L Carbon Dioxide 29 (22-30) mmol/L Anion Gap 10 mmol/L BUN 17 (9-20) mg/dL Creatinine 0.82 (0.66-1.25) mg/dL Est GFR (CKD-EPI)AfAm >90 (>60 ml/min/1.73 sqM) Est GFR (CKD-EPI)NonAf >90 (>60 ml/min/1.73 sqM) Glucose 381 H (74-99) mg/dL Calcium 9.9 (8.4-10.2) mg/dL Total Bilirubin 0.7 (0.2-1.3) mg/dL AST 30 (17-59) U/L ALT 46 (4-49) U/L Alkaline Phosphatase 97 (38-126) U/L Total Protein 7.4 (6.3-8.2) g/dL Albumin 4.6 (3.5-5.0) g/dL Amylase 45 (30-110) U/L Lipase 82 (23-300) U/L Urine Color Light Yellow Urine Appearance Clear (Clear) Urine pH 6.5 (5.0-8.0) Ur Specific [place] 1.021 (1.001-1.035) Urine Protein Negative (Negative) Urine Glucose (UA) 4+ H (Negative) Urine Ketones Negative (Negative) Urine Blood Negative (Negative) Urine Nitrite Negative (Negative) Urine Bilirubin Negative (Negative) Urine Urobilinogen <2.0 (<2.0) mg/dL Ur Leukocyte Esterase Negative (Negative) - Radiology Data Radiology results: report reviewed, image reviewed CT of abdomen and pelvis: Negative computed tomography scan no adverse change compared to old exam. Disposition Clinical Impression: Abdominal pain Disposition: HOME SELF-CARE Condition: Stable Instructions (If sedation given, give patient instructions): Abdominal Pain (ED) Additional Instructions: Please return to the Emergency Department if symptoms worsen or any other sofia rns. Follow-up with primary care in 2-4 days. Try to eliminate high fatty foods in diet. Is patient prescribed a controlled substance at d/c from ED?: No Referrals: Yesica Hinds MD [Primary Care Provider] - 1-2 days Time of Disposition: 00:05
[2020-06-25 22:14] LABS: Appearance,Urine Clear (Clear); Bilirubin,Urine Negative (Negative); Blood,Urine Negative (Negative); Color,Urine Light Yellow; Glucose,Urine (UA) 4+ (Negative); Ketones,Urine Negative (Negative); Leukocyte Esterase,Urine Negative (Negative); Nitrite,Urine Negative (Negative); PH, Urine 6.5 (5.0-8.0); Protein,Urine Negative (Negative); Specific Gravity,Urine 1.021 (1.001-1.035); Urobilinogen,Urine <2.0 mg/dL (<2.0)
[2020-06-25 22:17] LABS: Basophils # (A) 0.1 k/uL (0-0.2); Basophils % (A) 1 %; Eosinophils # (A) 0.1 k/uL (0-0.7); Eosinophils % (A) 2 %; HCT 46.8 % (39.0-53.0); HGB 16.1 gm/dL (13.0-17.5); Lymphocytes # (A) 2.9 k/uL (1.0-4.8); Lymphocytes % (A) 41 %; MCH 31.2 pg (25.0-35.0); MCHC 34.5 g/dL (31.0-37.0); MCV 90.4 fL (80.0-100.0); Mean Platelet Volume 10.3; Monocytes # (A) 0.4 k/uL (0-1.0); Monocytes % (A) 6 %; Neutrophils # (A) 3.5 k/uL (1.3-7.7); Neutrophils % (A) 49 %; Platelet Count 211 k/uL (150-450); RBC 5.18 m/uL (4.30-5.90); RDW 12.8 % (11.5-15.5); WBC 7.1 k/uL (3.8-10.6)
[2020-06-25 22:22] LABS: ALT 46 U/L (4-49); AST 30 U/L (17-59); African American GFR (CKD) >90 (>60 ml/min/1.73 sqM); Albumin 4.6 g/dL (3.5-5.0); Alkaline Phosphatase 97 U/L (38-126); Amylase 45 U/L (30-110); Anion Gap 10 mmol/L; Blood Urea Nitrogen 17 mg/dL (9-20); Calcium 9.9 mg/dL (8.4-10.2); Carbon Dioxide 29 mmol/L (22-30); Chloride 95 mmol/L (98-107); Glucose 381 mg/dL (74-99); Lipase 82 U/L (23-300); Non-African American GFR(CKD) >90 (>60 ml/min/1.73 sqM); Potassium 4.6 mmol/L (3.5-5.1); Sodium 134 mmol/L (137-145); Total Bilirubin 0.7 mg/dL (0.2-1.3); Total Protein 7.4 g/dL (6.3-8.2)
[2020-06-25] MEDS ORDERED: INSULIN DETEMIR (LEVEMIR) 100 UNIT/ML SYR SQ ONE (23:00)
--- NOTE | 2020-06-25 23:54 | CT ---
EXAMINATION TYPE: CT abdomen pelvis w con DATE OF EXAM: 06/25/2020 COMPARISON: 06/16/2020 HISTORY: Abdominal pain CT DLP: 1753.6 mGycm Automated exposure control for dose reduction was used. CONTRAST: Performed with IV Contrast, patient injected with 100 mL of Isovue 300. Images obtained from the diaphragm to the floor the pelvis with IV contrast. There is mild subsegmental atelectasis at the lung bases. There is no pleural effusion. Heart size is normal. Liver spleen pancreas stomach appear intact. The bile ducts are not dilated. Gallbladder appears abse nt. There is no adrenal mass. Kidneys show satisfactory contrast opacification. There is no hydronephrosi s. Delayed images show normal renal excretion. There is no retroperitoneal adenopathy. Ureters are no t dilated. The bladder distends smoothly. There is no inguinal hernia. There is no free fluid in the pelvis. There is no mesenteric edema. There is no ascites or free air. There is no sign of a bowel obstructio n. There is L5 spondylolysis without significant spondylolisthesis. The bony pelvis is intact. Hip chelsi ints are intact. There is no evidence of a pelvic mass. Appendix is posterior and appears normal. IMPRESSION: Negative CT scan abdomen and pelvis. No adverse change compared to old exam.
== END 2020-06-26 00:17 | disposition home or self-care (01) ==
LOC: EC 19:46
DX: R10.9 Unspecified abdominal pain (principal); E11.9 Type 2 diabetes mellitus without complications; E78.5 Hyperlipidemia, unspecified; I10 Essential (primary) hypertension; J45.909 Unspecified asthma, uncomplicated; K21.9 Gastro-esophageal reflux disease without esophagitis; Z79.4 Long term (current) use of insulin; Z79.51 Long term (current) use of inhaled steroids; Z88.5 Allergy status to narcotic agent
CPT/HCPCS: 36415; 80053; 82150; 83690; 85025; 81003; 74177; 99284; 96374; 96375; 96372; 96361; J2405; J1170; Q9967

== ENCOUNTER 2020-10-05 18:17 | Emergency (ER) | payer BC, OTHER ==
[2020-10-05 18:41] VITALS: BP 121/77; PULSE 74; RESP 18; TEMP 98
--- NOTE | 2020-10-05 18:49 | ED ---
General Adult HPI - General Chief complaint: Extremity Injury, Lower Stated complaint: Rt Foot Pain Time Seen by Provider: 10/05/20 18:43 Source: patient Mode of arrival: ambulatory Limitations: no limitations - History of Present Illness Initial comments: Dictation was produced using [employer] dictation software. please excuse any grammatical, word or spelling errors. Chief Complaint: 40-year-old male presents with right foot pain History of Present Illness: For 1-year-old denies multiple comorbidities. He works in labor industry. He wears steel toed boots on a regular basis. He is on his feet all the time. Patient states her last 2 weeks he has pain to the bottom of his foot. Tried taking medicines at home with no improvement. Denies any fever, chills or night sweats. The ROS documented in this emergency department record has been reviewed and confirmed by me. Those systems with pertinent positive or negative responses have been documented in the HPI. All other systems are other negative and/or noncontributory. PHYSICAL EXAM: General Impression: Alert and oriented x3, not in acute distress HEENT: Normocephalic atraumatic, extra-ocular movements intact, pupils equal and reactive to light bilaterally, mucous membranes moist. Cardiovascular: Heart regular rate and rhythm Chest: Able to complete full sentences, no retractions, no tachypnea Abdomen: abdomen soft, non-tender, non-distended, no organomegaly Musculoskeletal: Pulses present and equal in all extremities, no peripheral edema Motor: no focal deficits noted Neurological: CN II-XII grossly intact, no focal motor or sensory deficits noted Skin: Intact with no visualized rashes Psych: Normal affect and mood Right foot: Tenderness to the distal heel on the plantar surface ED course: 40 y Old male presents to the emergency department for severe plantar fasciitis. As upon arrival are within acceptable limits. X-rays unremarkable. Patient given outpatient referral to podiatry. This also given a soft sole shoe. - Related Data Home Medications Medication Instructions Recorded Confirmed Insulin Aspart [NovoLOG Flexpen] 30 units SQ AC-TID 04/29/17 06/03/20 Insulin Glargine [Lantus] 90 unit SQ HS 04/29/17 06/07/20 Albuterol Inhaler [Ventolin Hfa 1 - 2 puff INHALATION RT-Q4H PRN 03/24/20 06/03/20 Inhaler] Alogliptin Benzoate [Alogliptin] 25 mg PO HS 03/24/20 06/03/20 Cholecalciferol [Vitamin D3 (25 1,000 unit PO DAILY 03/24/20 06/03/20 Mcg = 1000 Iu)] Pravastatin Sodium [Pravachol] 80 mg PO HS 03/24/20 06/03/20 buPROPion [Wellbutrin] 100 mg PO DAILY 03/24/20 06/03/20 lisinopriL [Zestril] 2.5 mg PO HS 03/24/20 06/03/20 Mometasone/Formoterol [Dulera 100 2 puff INHALATION RT-DAILY 05/02/20 06/03/20 Mcg-5 Mcg Inhaler] Naproxen 500 mg PO BID PRN 05/02/20 06/03/20 Previous Rx's Medication Instructions Recorded Acetaminophen Tab [Tylenol Tab] 1,000 mg PO Q6HR PRN #30 tablet 06/07/20 Simethicone [Gas-X] 125 mg PO AC-TID PRN #20 capsule 06/07/20 HYDROcodone/APAP 5-325MG [[place] 1 tab PO Q6HR PRN 3 Days #12 tab 10/05/20 5-325] Allergies Allergy/AdvReac Type Severity Reaction Status Date / Time propoxyphene napsylate Allergy Anaphylaxis Verified 10/05/20 18:41 [From Darvocet-N 100] codeine AdvReac Nausea & Verified 10/05/20 18:41 Vomiting Review of Systems ROS Statement: Those systems with pertinent positive or pertinent negative responses have been documented in the HPI. ROS Other: All systems not noted in ROS Statement are negative. Past Medical History Past Medical History: Asthma, Diabetes Mellitus, GERD/Reflux, Hyperlipidemia, Hypertension, Syncope Additional Past Medical History / Comment(s): cut to left ring finger and got infection of mrsa, GALLBLADDER DISORDER, History of Any Multi-Drug Resistant Organisms: MRSA Date of last positivie culture/infection: 2007 MDRO Source:: right leg, right arm, right knee, lt ring finger Past Surgical History: Cholecystectomy, Orthopedic Surgery Additional Past Surgical History / Comment(s): Bilateral eye lasik, wisdom teeth, lt ring finger sx to remove mrsa, Past Anesthesia/Blood Transfusion Reactions: No Reported Reaction Past Psychological History: Anxiety, Depression Smoking Status: Never smoker Past Alcohol Use History: None Reported Past Drug Use History: None Reported - Past Family History Mother Family Medical History: No Reported History General Exam Limitations: no limitations Course Vital Signs 10/05/20 18:38 Temperature 98.0 F Pulse Rate 74 Respiratory 18 Rate Blood Pressure 121/77 O2 Sat by Pulse 98 Oximetry Disposition Clinical Impression: Plantar fasciitis Disposition: HOME SELF-CARE Condition: Fair Instructions (If sedation given, give patient instructions): Plantar Fasciitis (ED) Prescriptions: HYDROcodone/APAP 5-325MG [[place] 5-325] 1 tab PO Q6HR PRN 3 Days #12 tab PRN Reason: Severe Pain Is patient prescribed a controlled substance at d/c from ED?: Yes If prescribed controlled substance>3 days was MAPS reviewed?: Prescribed <3 Days Referrals: Orlin Stovall DPM [STAFF PHYSICIAN] - 1-2 days
--- NOTE | 2020-10-05 19:29 | XR ---
EXAMINATION TYPE: XR foot complete RT DATE OF EXAM: 10/05/2020 COMPARISON: NONE HISTORY: Foot pain for 2 weeks TECHNIQUE: 3 views FINDINGS: Metatarsals are intact. I see no fracture nor dislocation. There are no erosions. There is plantar and Achilles calcaneal spurring. IMPRESSION: Calcaneal spurring. No fracture seen.
== END 2020-10-05 19:39 | disposition home or self-care (01) ==
LOC: EC 18:17
DX: M72.2 Plantar fascial fibromatosis (principal); E11.9 Type 2 diabetes mellitus without complications; I10 Essential (primary) hypertension; J45.909 Unspecified asthma, uncomplicated; E78.5 Hyperlipidemia, unspecified; K21.9 Gastro-esophageal reflux disease without esophagitis; F32.9 Major depressive disorder, single episode, unspecified; F41.9 Anxiety disorder, unspecified; Z79.4 Long term (current) use of insulin; Z79.51 Long term (current) use of inhaled steroids; Z79.1 Long term (current) use of non-steroidal anti-inflammatories (NSAID); Z79.899 Other long term (current) drug therapy; Z88.5 Allergy status to narcotic agent
CPT/HCPCS: 99283

== ENCOUNTER 2020-10-30 18:47 | Emergency (ER) | payer BC ==
[2020-10-30 18:53] VITALS: BP 127/85; PULSE 97; RESP 18; TEMP 98.5
--- NOTE | 2020-10-30 19:15 | ED ---
General Adult HPI - General Chief complaint: Extremity Problem,Nontraumatic Stated complaint: Rt Wrist Pain Time Seen by Provider: 10/30/20 19:00 Source: patient, RN notes reviewed Mode of arrival: ambulatory Limitations: no limitations - History of Present Illness Initial comments: Patient is a pleasant 40-year-old male presenting to the emergency Department with complaints of right wrist discomfort. Onset of symptoms was a couple of days ago. Patient is doing frequent movement with his wrist with his new job. Patient believes this is leading towards his discomfort. No isolated area of trauma. No history of similar symptoms previously. No swelling. No redness. No warmth. No fever. - Related Data Home Medications Medication Instructions Recorded Confirmed Insulin Aspart [NovoLOG Flexpen] 30 units SQ AC-TID 04/29/17 06/03/20 Insulin Glargine [Lantus] 90 unit SQ HS 04/29/17 06/07/20 Albuterol Inhaler [Ventolin Hfa 1 - 2 puff INHALATION RT-Q4H PRN 03/24/20 06/03/20 Inhaler] Alogliptin Benzoate [Alogliptin] 25 mg PO HS 03/24/20 06/03/20 Cholecalciferol [Vitamin D3 (25 1,000 unit PO DAILY 03/24/20 06/03/20 Mcg = 1000 Iu)] Pravastatin Sodium [Pravachol] 80 mg PO HS 03/24/20 06/03/20 buPROPion [Wellbutrin] 100 mg PO DAILY 03/24/20 06/03/20 lisinopriL [Zestril] 2.5 mg PO HS 03/24/20 06/03/20 Mometasone/Formoterol [Dulera 100 2 puff INHALATION RT-DAILY 05/02/20 06/03/20 Mcg-5 Mcg Inhaler] Naproxen 500 mg PO BID PRN 05/02/20 06/03/20 Previous Rx's Medication Instructions Recorded Acetaminophen Tab [Tylenol Tab] 1,000 mg PO Q6HR PRN #30 tablet 06/07/20 Simethicone [Gas-X] 125 mg PO AC-TID PRN #20 capsule 06/07/20 HYDROcodone/APAP 5-325MG [[place] 1 tab PO Q6HR PRN 3 Days #12 tab 10/05/20 5-325] Allergies Allergy/AdvReac Type Severity Reaction Status Date / Time propoxyphene napsylate Allergy Anaphylaxis Verified 10/30/20 18:53 [From Darteresat-N 100] codeine AdvReac Nausea & Verified 10/30/20 18:53 Vomiting Review of Systems ROS Statement: Those systems with pertinent positive or pertinent negative responses have been documented in the HPI. ROS Other: All systems not noted in ROS Statement are negative. Constitutional: Denies: fever Eyes: Denies: eye pain ENT: Denies: ear pain Respiratory: Denies: cough Cardiovascular: Denies: chest pain Endocrine: Denies: fatigue Gastrointestinal: Denies: abdominal pain Genitourinary: Denies: dysuria Musculoskeletal: Reports: as per HPI. Denies: back pain Skin: Denies: rash Neurological: Denies: weakness Past Medical History Past Medical History: Asthma, Diabetes Mellitus, GERD/Reflux, Hyperlipidemia, Hypertension, Syncope Additional Past Medical History / Comment(s): cut to left ring finger and got infection of mrsa, GALLBLADDER DISORDER, History of Any Multi-Drug Resistant Organisms: MRSA Date of last positivie culture/infection: 2007 MDRO Source:: right leg, right arm, right knee, lt ring finger Past Surgical History: Cholecystectomy, Orthopedic Surgery Additional Past Surgical History / Comment(s): Bilateral eye lasik, wisdom teeth, lt ring finger sx to remove mrsa, Past Anesthesia/Blood Transfusion Reactions: No Reported Reaction Past Psychological History: Anxiety, Depression Smoking Status: Never smoker Past Alcohol Use History: None Reported Past Drug Use History: None Reported - Past Family History Mother Family Medical History: No Reported History General Exam Limitations: no limitations General appearance: alert, in no apparent distress Head exam: Present: normocephalic Eye exam: Present: normal appearance Neck exam: Present: normal inspection Respiratory exam: Present: normal lung sounds bilaterally Cardiovascular Exam: Present: regular rate, normal rhythm GI/Abdominal exam: Present: soft. Absent: tenderness Extremities exam: Present: other (Minimal tenderness right wrist. No erythema or swelling or warmth. Good hand strength. Distally the extremity is neurovascular intact. Radial pulses 2/4). Absent: full ROM (Pain limiting range of motion and right wrist.) Neurological exam: Present: alert. Absent: motor sensory deficit Psychiatric exam: Present: normal affect, normal mood Skin exam: Present: normal color. Absent: erythema Course Vital Signs 10/30/20 18:50 Temperature 98.5 F Pulse Rate 97 Respiratory 18 Rate Blood Pressure 127/85 O2 Sat by Pulse 98 Oximetry Procedures - Orthopedic Splinting/Casting Injury #1 Side: right Upper Extremity Injury Location: short arm, wrist Upper Extremity Immobilizer: volar splint Disposition Clinical Impression: Right wrist tendinitis Disposition: HOME SELF-CARE Condition: Stable Instructions (If sedation given, give patient instructions): Wrist Sprain (ED) Additional Instructions: Please follow-up with primary care physician in the next couple days for recheck. Continue [id number] ibuprofen or naproxen as needed. No use right hand and released by Dr. Return for increased pain, swelling, redness or fever, worsening symptoms or other concerns. Ice to affected area. Is patient prescribed a controlled substance at d/c from ED?: No Referrals: Yesica Hinds MD [Primary Care Provider] - 1-2 days Time of Disposition: 19:57
--- NOTE | 2020-10-30 19:41 | XR ---
EXAMINATION TYPE: XR wrist complete RT DATE OF EXAM: 10/30/2020 COMPARISON: 08/27/2014 HISTORY: Pain TECHNIQUE: 4 views FINDINGS: I see no fracture nor dislocation. Scaphoid bone appears intact. Carpal bones are intact. J oint spaces are fairly normal. IMPRESSION: Negative right wrist exam. No fracture. No adverse change.
== END 2020-10-30 20:05 | disposition home or self-care (01) ==
LOC: EC 18:47
DX: M77.8 Other enthesopathies, not elsewhere classified (principal); I10 Essential (primary) hypertension; J45.909 Unspecified asthma, uncomplicated; E11.9 Type 2 diabetes mellitus without complications; E78.5 Hyperlipidemia, unspecified; K21.9 Gastro-esophageal reflux disease without esophagitis; F32.9 Major depressive disorder, single episode, unspecified; F41.9 Anxiety disorder, unspecified; Z79.4 Long term (current) use of insulin; Z79.51 Long term (current) use of inhaled steroids; Z88.5 Allergy status to narcotic agent
CPT/HCPCS: 29125; 99283

== ENCOUNTER 2020-11-12 20:55 | Emergency (ER) | payer BC, OTHER ==
[2020-11-12 21:10] VITALS: BP 120/84; PULSE 82; RESP 18; TEMP 98.1
--- NOTE | 2020-11-12 21:10 | ED ---
General Adult HPI - General Stated complaint: IHS-Fall back pain - History of Present Illness Initial comments: 40-year-old male presents emergency Department with chief complaint of back pain. Patient reports he ran into his and injured the right lower back. Patient reports the pain is exacerbated with left rotation or movement. States the pain is 2/10, dull in nature. Denies any paresthesias. States the incident occurred about 2 hours prior to arrival. Brief exam: Tenderness in the right lower back region, mild. No midline vertebral tenderness. - Related Data Home Medications Medication Instructions Recorded Confirmed Insulin Aspart [NovoLOG Flexpen] 30 units SQ AC-TID 04/29/17 06/03/20 Insulin Glargine [Lantus] 90 unit SQ HS 04/29/17 06/07/20 Albuterol Inhaler [Ventolin Hfa 1 - 2 puff INHALATION RT-Q4H PRN 03/24/20 06/03/20 Inhaler] Alogliptin Benzoate [Alogliptin] 25 mg PO HS 03/24/20 06/03/20 Cholecalciferol [Vitamin D3 (25 1,000 unit PO DAILY 03/24/20 06/03/20 Mcg = 1000 Iu)] Pravastatin Sodium [Pravachol] 80 mg PO HS 03/24/20 06/03/20 buPROPion [Wellbutrin] 100 mg PO DAILY 03/24/20 06/03/20 lisinopriL [Zestril] 2.5 mg PO HS 03/24/20 06/03/20 Mometasone/Formoterol [Dulera 100 2 puff INHALATION RT-DAILY 05/02/20 06/03/20 Mcg-5 Mcg Inhaler] Naproxen 500 mg PO BID PRN 05/02/20 06/03/20 Previous Rx's Medication Instructions Recorded Acetaminophen Tab [Tylenol Tab] 1,000 mg PO Q6HR PRN #30 tablet 06/07/20 Simethicone [Gas-X] 125 mg PO AC-TID PRN #20 capsule 06/07/20 HYDROcodone/APAP 5-325MG [[place] 1 tab PO Q6HR PRN 3 Days #12 tab 10/05/20 5-325] Allergies Allergy/AdvReac Type Severity Reaction Status Date / Time propoxyphene napsylate Allergy Anaphylaxis Verified 08/03/21 21:10 [From Dariramcet-N 100] codeine AdvReac Nausea & Verified 11/12/20 21:10 Vomiting Review of Systems ROS Statement: Those systems with pertinent positive or pertinent negative responses have been documented in the HPI. ROS Other: All systems not noted in ROS Statement are negative. Past Medical History Past Medical History: Asthma, Diabetes Mellitus, GERD/Reflux, Hyperlipidemia, Hypertension, Syncope Additional Past Medical History / Comment(s): cut to left ring finger and got infection of mrsa, GALLBLADDER DISORDER, History of Any Multi-Drug Resistant Organisms: MRSA Date of last positivie culture/infection: 2007 MDRO Source:: right leg, right arm, right knee, lt ring finger Past Surgical History: Cholecystectomy, Orthopedic Surgery Additional Past Surgical History / Comment(s): Bilateral eye lasik, wisdom teeth, lt ring finger sx to remove mrsa, Past Anesthesia/Blood Transfusion Reactions: No Reported Reaction Past Psychological History: Anxiety, Depression Smoking Status: Never smoker Past Alcohol Use History: None Reported Past Drug Use History: None Reported - Past Family History Mother Family Medical History: No Reported History General Exam Limitations: no limitations General appearance: alert, in no apparent distress Head exam: Present: atraumatic, normocephalic, normal inspection Eye exam: Present: normal appearance, PERRL Pupils: Present: normal accommodation ENT exam: Present: normal exam, normal oropharynx, mucous membranes moist Neck exam: Present: normal inspection, full ROM. Absent: tenderness Respiratory exam: Present: normal lung sounds bilaterally. Absent: respiratory distress, wheezes, rales Cardiovascular Exam: Present: regular rate, normal rhythm, normal heart sounds. Absent: systolic murmur Extremities exam: Present: normal inspection, full ROM Back exam: Present: normal inspection, full ROM, tenderness (Right lower lumbar tenderness. No mid vertebral tenderness) Neurological exam: Present: alert, oriented X3 Psychiatric exam: Present: normal affect, normal mood Skin exam: Present: warm, dry, intact, normal color Course Vital Signs 11/12/20 21:07 Temperature 98.1 F Pulse Rate 82 Respiratory 18 Rate Blood Pressure 120/84 O2 Sat by Pulse 96 Oximetry Medical Decision Making - Medical Decision Making 40-year-old male presents to the emergency department with a chief complaint of an injury to the back. This appears to be contusion to soft tissue. Conservative management at home. Case discussed physician. Disposition Clinical Impression: Fall, Contusion of lower back Disposition: HOME SELF-CARE Condition: Stable Instructions (If sedation given, give patient instructions): Contusion in Adults (ED) Additional Instructions: Take prescribed medication as directed. Return to emergency department if symptoms worsen. Is patient prescribed a controlled substance at d/c from ED?: No Referrals: Yesica Hinds MD [Primary Care Provider] - 1-2 days Time of Disposition: 22:24
== END 2020-11-12 22:45 | disposition home or self-care (01) ==
LOC: EC 20:55
DX: S30.0XXA Contusion of lower back and pelvis, initial encounter (principal); J45.909 Unspecified asthma, uncomplicated; I10 Essential (primary) hypertension; E78.5 Hyperlipidemia, unspecified; K21.9 Gastro-esophageal reflux disease without esophagitis; E11.9 Type 2 diabetes mellitus without complications; F32.9 Major depressive disorder, single episode, unspecified; F41.9 Anxiety disorder, unspecified; Z79.51 Long term (current) use of inhaled steroids; Z79.4 Long term (current) use of insulin; W18.30XA Fall on same level, unspecified, initial encounter; Y99.0 Civilian activity done for income or pay
CPT/HCPCS: 99283

== ENCOUNTER 2020-12-02 04:47 | Emergency (ER) | payer BC, MEDICAID ==
[2020-12-02] MEDS ORDERED: SODIUM CHLORIDE 0.9% 1,000 ML IV STA ×2 (05:00)
[2020-12-02] MEDS ORDERED: ONDANSETRON 4 MG/2 ML VIAL IVP STA (05:00)
[2020-12-02] MEDS ORDERED: SODIUM CHLORIDE 0.9% 500 ML 500 ML IV STA (05:00)
--- NOTE | 2020-12-02 05:02 | ED ---
Recheck HPI - General Chief Complaint: Recheck/Abnormal Lab/Rx Stated Complaint: Hyperglycemia Time Seen by Provider: 12/02/20 04:59 Source: patient, RN notes reviewed, old records reviewed Mode of arrival: ambulatory Limitations: no limitations - History of Present Illness Initial Comments: This is a 40-year-old male to the ER today for evaluation. Patient resents emergency department valuation of not feeling well feels that his brain feels off his head feeling off the lightheaded and dizzy. Heart is racing. Patient does have diabetes and takes his blood sugar has been significantly higher today. Patient denies fever no nausea vomiting or diarrhea MD Complaint: abnormal lab (Elevated blood sugar) -: unknown Returns Today for: Called Because of Abnormal Lab/Test, persistent/worsening pain related to initial visit, other (Overall not feeling well) Symptoms Since Prior Visit: worsening pain Context: called for abnormal lab result Associated Symptoms: malaise, nausea Treatments Prior to Arrival: other (none) - Related Data Home Medications Medication Instructions Recorded Confirmed Insulin Aspart [NovoLOG Flexpen] 30 units SQ AC-TID 04/29/17 06/03/20 Insulin Glargine [Lantus Vial] 90 unit SQ HS 04/29/17 06/07/20 Albuterol Inhaler [Ventolin Hfa 1 - 2 puff INHALATION RT-Q4H PRN 03/24/20 06/03/20 Inhaler] Alogliptin Benzoate [Alogliptin] 25 mg PO HS 03/24/20 06/03/20 Cholecalciferol [Vitamin D3 (25 1,000 unit PO DAILY 03/24/20 06/03/20 Mcg = 1000 Iu)] Pravastatin Sodium [Pravachol] 80 mg PO HS 03/24/20 06/03/20 buPROPion [Wellbutrin] 100 mg PO DAILY 03/24/20 06/03/20 lisinopriL [Zestril] 2.5 mg PO HS 03/24/20 06/03/20 Mometasone/Formoterol [Dulera 100 2 puff INHALATION RT-DAILY 05/02/20 06/03/20 Mcg-5 Mcg Inhaler] Naproxen 500 mg PO BID PRN 05/02/20 06/03/20 Previous Rx's Medication Instructions Recorded Acetaminophen Tab [Tylenol Tab] 1,000 mg PO Q6HR PRN #30 tablet 06/07/20 Simethicone [Gas-X] 125 mg PO AC-TID PRN #20 capsule 06/07/20 HYDROcodone/APAP 5-325MG [[place] 1 tab PO Q6HR PRN 3 Days #12 tab 10/05/20 5-325] Allergies Allergy/AdvReac Type Severity Reaction Status Date / Time propoxyphene napsylate Allergy Anaphylaxis Verified 12/02/20 04:50 [From Darvocet-N 100] codeine AdvReac Nausea & Verified 12/02/20 04:50 Vomiting Review of Systems ROS Statement: Those systems with pertinent positive or pertinent negative responses have been documented in the HPI. ROS Other: All systems not noted in ROS Statement are negative. Past Medical History Past Medical History: Asthma, Diabetes Mellitus, GERD/Reflux, Hyperlipidemia, Hypertension, Syncope Additional Past Medical History / Comment(s): cut to left ring finger and got infection of mrsa, GALLBLADDER DISORDER, History of Any Multi-Drug Resistant Organisms: MRSA Date of last positivie culture/infection: 2007 MDRO Source:: right leg, right arm, right knee, lt ring finger Past Surgical History: Cholecystectomy, Orthopedic Surgery Additional Past Surgical History / Comment(s): Bilateral eye lasik, wisdom teeth, lt ring finger sx to remove mrsa, Past Anesthesia/Blood Transfusion Reactions: No Reported Reaction Past Psychological History: Anxiety, Depression Smoking Status: Never smoker Past Alcohol Use History: None Reported Past Drug Use History: None Reported - Past Family History Mother Family Medical History: No Reported History General Exam Limitations: no limitations General appearance: alert, in no apparent distress Head exam: Present: atraumatic, normocephalic, normal inspection Eye exam: Present: normal appearance, PERRL, EOMI. Absent: scleral icterus, conjunctival injection, periorbital swelling ENT exam: Present: normal exam, mucous membranes moist Neck exam: Present: normal inspection. Absent: tenderness, meningismus, lymphadenopathy Respiratory exam: Present: normal lung sounds bilaterally. Absent: respiratory distress, wheezes, rales, rhonchi, stridor Cardiovascular Exam: Present: normal rhythm, tachycardia, normal heart sounds. Absent: systolic murmur, diastolic murmur, rubs, gallop, clicks GI/Abdominal exam: Present: soft, normal bowel sounds. Absent: distended, tenderness, guarding, rebound, rigid Extremities exam: Present: normal inspection, full ROM, normal capillary refill. Absent: tenderness, pedal edema, joint swelling, calf tenderness Back exam: Present: normal inspection Neurological exam: Present: alert, oriented X3, CN II-XII intact Psychiatric exam: Present: normal affect, normal mood Skin exam: Present: warm, dry, intact, normal color. Absent: rash Course Vital Signs 12/02/20 04:51 Temperature 98.6 F Pulse Rate 117 H Respiratory 16 Rate Blood Pressure 138/83 O2 Sat by Pulse 96 Oximetry - Reevaluation(s) Reevaluation #1: 12/02/20 05:02 Medical record is reviewed Reevaluation #2: 12/02/20 06:22 Patient symptoms are improving with hydration Reevaluation #3: 12/02/20 06:22 Patient informed results and questions answered Medical Decision Making - Medical Decision Making 40 male to the ER for evaluation of elevated blood sugar. Patient not feeling well feeling improved currently. No signs of DKA. Patient given blood sugar control can be discharged home - Lab Data Result diagrams: 12/02/20 05:13 12/02/20 05:13 Lab Results 12/02/20 12/02/20 12/02/20 Range/Units 05:13 05:13 05:13 WBC 12.6 H (3.8-10.6) k/uL RBC 5.33 (4.30-5.90) m/uL Hgb 16.9 (13.0-17.5) gm/dL Hct 48.1 (39.0-53.0) % MCV 90.2 (80.0-100.0) fL MCH 31.7 (25.0-35.0) pg MCHC 35.1 (31.0-37.0) g/dL RDW 12.9 (11.5-15.5) % Plt Count 273 (150-450) k/uL MPV 9.8 Neutrophils % 68 % Lymphocytes % 23 % Monocytes % 5 % Eosinophils % 1 % Basophils % 1 % Neutrophils # 8.6 H (1.3-7.7) k/uL Lymphocytes # 2.9 (1.0-4.8) k/uL Monocytes # 0.7 (0-1.0) k/uL Eosinophils # 0.1 (0-0.7) k/uL Basophils # 0.1 (0-0.2) k/uL VBG pH (7.31-7.41) VBG pCO2 (37-51) mmHg VBG HCO3 (24-28) mmol/L Sodium 134 L (137-145) mmol/L Potassium 4.3 (3.5-5.1) mmol/L Chloride 96 L (98-107) mmol/L Carbon Dioxide 25 (22-30) mmol/L Anion Gap 13 mmol/L BUN 18 (9-20) mg/dL Creatinine 1.09 (0.66-1.25) mg/dL Est GFR (CKD-EPI)AfAm >90 (>60 ml/min/1.73 sqM) Est GFR (CKD-EPI)NonAf 84 (>60 ml/min/1.73 sqM) Glucose 432 H (74-99) mg/dL Calcium 10.7 H (8.4-10.2) mg/dL Phosphorus 4.3 (2.5-4.5) mg/dL Magnesium 1.6 (1.6-2.3) mg/dL Total Bilirubin 0.5 (0.2-1.3) mg/dL AST 34 (17-59) U/L ALT 37 (4-49) U/L Alkaline Phosphatase 100 (38-126) U/L Creatine Kinase 236 H (55-170) U/L Total Protein 7.6 (6.3-8.2) g/dL Albumin 4.9 (3.5-5.0) g/dL Urine Color Light Yellow Urine Appearance Clear (Clear) Urine pH 5.0 (5.0-8.0) Ur Specific [place] 1.032 (1.001-1.035) Urine Protein Negative (Negative) Urine Glucose (UA) 4+ H (Negative) Urine Ketones Negative (Negative) Urine Blood Negative (Negative) Urine Nitrite Negative (Negative) Urine Bilirubin Negative (Negative) Urine Urobilinogen <2.0 (<2.0) mg/dL Ur Leukocyte Esterase Negative (Negative) Acetone, Qual Negative (Negative) 12/02/20 Range/Units 05:13 WBC (3.8-10.6) k/uL RBC (4.30-5.90) m/uL Hgb (13.0-17.5) gm/dL Hct (39.0-53.0) % MCV (80.0-100.0) fL MCH (25.0-35.0) pg MCHC (31.0-37.0) g/dL RDW (11.5-15.5) % Plt Count (150-450) k/uL MPV Neutrophils % % Lymphocytes % % Monocytes % % Eosinophils % % Basophils % % Neutrophils # (1.3-7.7) k/uL Lymphocytes # (1.0-4.8) k/uL Monocytes # (0-1.0) k/uL Eosinophils # (0-0.7) k/uL Basophils # (0-0.2) k/uL VBG pH 7.30 L (7.31-7.41) VBG pCO2 55 H (37-51) mmHg VBG HCO3 27 (24-28) mmol/L Sodium (137-145) mmol/L Potassium (3.5-5.1) mmol/L Chloride (98-107) mmol/L Carbon Dioxide (22-30) mmol/L Anion Gap mmol/L BUN (9-20) mg/dL Creatinine (0.66-1.25) mg/dL Est GFR (CKD-EPI)AfAm (>60 ml/min/1.73 sqM) Est GFR (CKD-EPI)NonAf (>60 ml/min/1.73 sqM) Glucose (74-99) mg/dL Calcium (8.4-10.2) mg/dL Phosphorus (2.5-4.5) mg/dL Magnesium (1.6-2.3) mg/dL Total Bilirubin (0.2-1.3) mg/dL AST (17-59) U/L ALT (4-49) U/L Alkaline Phosphatase (38-126) U/L Creatine Kinase (55-170) U/L Total Protein (6.3-8.2) g/dL Albumin (3.5-5.0) g/dL Urine Color Urine Appearance (Clear) Urine pH (5.0-8.0) Ur Specific [place] (1.001-1.035) Urine Protein (Negative) Urine Glucose (UA) (Negative) Urine Ketones (Negative) Urine Blood (Negative) Urine Nitrite (Negative) Urine Bilirubin (Negative) Urine Urobilinogen (<2.0) mg/dL Ur Leukocyte Esterase (Negative) Acetone, Qual (Negative) - EKG Data -: EKG Interpreted by Me (EKG is sinus tachycardia 103 PA 176 QRS 102 QTC 455) Disposition Clinical Impression: Hyperglycemia, Hyperglycemia due to type 1 diabetes mellitus Disposition: ADMITTED IP TO THIS HOSP Condition: Fair Instructions (If sedation given, give patient instructions): Diabetic Hyperglycemia (ED) Is patient prescribed a controlled substance at d/c from ED?: No Referrals: Yesica Hinds MD [Primary Care Provider] - 1-2 days
[2020-12-02 05:44] LABS: Basophils # (A) 0.1 k/uL (0-0.2); Basophils % (A) 1 %; Eosinophils # (A) 0.1 k/uL (0-0.7); Eosinophils % (A) 1 %; HCT 48.1 % (39.0-53.0); HGB 16.9 gm/dL (13.0-17.5); Lymphocytes # (A) 2.9 k/uL (1.0-4.8); Lymphocytes % (A) 23 %; MCH 31.7 pg (25.0-35.0); MCHC 35.1 g/dL (31.0-37.0); MCV 90.2 fL (80.0-100.0); Mean Platelet Volume 9.8; Monocytes # (A) 0.7 k/uL (0-1.0); Monocytes % (A) 5 %; Neutrophils # (A) 8.6 k/uL (1.3-7.7); Neutrophils % (A) 68 %; Platelet Count 273 k/uL (150-450); RBC 5.33 m/uL (4.30-5.90); RDW 12.9 % (11.5-15.5); WBC 12.6 k/uL (3.8-10.6)
[2020-12-02 05:47] LABS: VBG PH 7.3 (7.31-7.41)
[2020-12-02 05:57] LABS: Appearance,Urine Clear (Clear); Bilirubin,Urine Negative (Negative); Blood,Urine Negative (Negative); Color,Urine Light Yellow; Glucose,Urine (UA) 4+ (Negative); Ketones,Urine Negative (Negative); Leukocyte Esterase,Urine Negative (Negative); Nitrite,Urine Negative (Negative); Protein,Urine Negative (Negative); Specific Gravity,Urine 1.032 (1.001-1.035); Urobilinogen,Urine <2.0 mg/dL (<2.0)
[2020-12-02 05:58] LABS: ALT 37 U/L (4-49); AST 34 U/L (17-59); African American GFR (CKD) >90 (>60 ml/min/1.73 sqM); Albumin 4.9 g/dL (3.5-5.0); Alkaline Phosphatase 100 U/L (38-126); Anion Gap 13 mmol/L; Blood Urea Nitrogen 18 mg/dL (9-20); Calcium 10.7 mg/dL (8.4-10.2); Carbon Dioxide 25 mmol/L (22-30); Chloride 96 mmol/L (98-107); Creatine Kinase 236 U/L (55-170); Glucose 432 mg/dL (74-99); Magnesium 1.6 mg/dL (1.6-2.3); Non-African American GFR(CKD) 84 (>60 ml/min/1.73 sqM); Phosphorus 4.3 mg/dL (2.5-4.5); Potassium 4.3 mmol/L (3.5-5.1); Sodium 134 mmol/L (137-145); Total Bilirubin 0.5 mg/dL (0.2-1.3); Total Protein 7.6 g/dL (6.3-8.2)
[2020-12-02] MEDS ORDERED: INSULIN REGULAR 100 UNIT/ML VIAL (IV) IV ONE (06:19)
[2020-12-02 07:21] VITALS: BP 123/78; PULSE 93; RESP 18; TEMP 97
[2020-12-02 07:23] LABS: Glucose,Whole Blood 337 mg/dL (75-99)
[2020-12-02 07:23] LABS: Glucose,Whole Blood 420 mg/dL (75-99)
== END 2020-12-02 07:15 | disposition other institution (70) ==
LOC: EC 04:47
DX: E10.65 Type 1 diabetes mellitus with hyperglycemia (principal); I10 Essential (primary) hypertension; E78.5 Hyperlipidemia, unspecified; J45.909 Unspecified asthma, uncomplicated; K21.9 Gastro-esophageal reflux disease without esophagitis; F32.9 Major depressive disorder, single episode, unspecified; F41.9 Anxiety disorder, unspecified; Z79.51 Long term (current) use of inhaled steroids; Z79.1 Long term (current) use of non-steroidal anti-inflammatories (NSAID); Z79.899 Other long term (current) drug therapy; Z88.5 Allergy status to narcotic agent; Z90.49 Acquired absence of other specified parts of digestive tract
CPT/HCPCS: 96374; 96375; 96361 ×2; 36415; 93005; 80053; 82550; 82803; 82009; 83735; 84100; 84484; 85025; 81003; 99285; J2405

== ENCOUNTER 2021-02-28 12:18 | Emergency (ER) | payer MEDICAID, OTHER ==
[2021-02-28 12:28] VITALS: BP 140/94; PULSE 70; RESP 20; TEMP 98.3
--- NOTE | 2021-02-28 12:49 | XR ---
EXAMINATION TYPE: XR shoulder complete RT DATE OF EXAM: 02/28/2021 CLINICAL HISTORY: Right shoulder pain from repetitive lifting injury. TECHNIQUE: Three views of the right shoulder are obtained. COMPARISON: None. FINDINGS: There is no acute fracture/dislocation evident in the right shoulder. The acromioclavicul ar and glenohumeral joint spaces appear within normal limits. The visualized ribs are intact and unr emarkable. IMPRESSION: As above.
[2021-02-28] MEDS ORDERED: KETOROLAC 15 MG/ML 1 ML VIAL IM STA (12:57)
--- NOTE | 2021-02-28 13:02 | ED ---
General Adult HPI - General Chief complaint: Extremity Injury, Upper Stated complaint: Shoulder injury IHS Time Seen by Provider: 02/28/21 12:40 Source: patient, RN notes reviewed Mode of arrival: ambulatory Limitations: no limitations - History of Present Illness Initial comments: Patient is a pleasant 40-year-old male presenting to the emergency Department with complaints of right shoulder discomfort. Onset of symptoms was around 9:15 AM at work. Patient does use shoulder/arms frequently repetitively on the job. Patient has minimal discomfort left shoulder however more so on the right. Discomfort is greatly increased with movement. No weakness. No history of similar symptoms previously. No direct trauma. - Related Data Home Medications Medication Instructions Recorded Confirmed Insulin Aspart [NovoLOG Flexpen] 30 units SQ AC-TID 04/29/17 06/03/20 Insulin Glargine [Lantus Vial] 90 unit SQ HS 04/29/17 06/07/20 Albuterol Inhaler [Ventolin Hfa 1 - 2 puff INHALATION RT-Q4H PRN 03/24/20 06/03/20 Inhaler] Alogliptin Benzoate [Alogliptin] 25 mg PO HS 03/24/20 06/03/20 Cholecalciferol [Vitamin D3 (25 1,000 unit PO DAILY 03/24/20 06/03/20 Mcg = 1000 Iu)] Pravastatin Sodium [Pravachol] 80 mg PO HS 03/24/20 06/03/20 buPROPion [Wellbutrin] 100 mg PO DAILY 03/24/20 06/03/20 lisinopriL [Zestril] 2.5 mg PO HS 03/24/20 06/03/20 Mometasone/Formoterol [Dulera 100 2 puff INHALATION RT-DAILY 05/02/20 06/03/20 Mcg-5 Mcg Inhaler] Naproxen 500 mg PO BID PRN 05/02/20 06/03/20 Previous Rx's Medication Instructions Recorded Acetaminophen Tab [Tylenol Tab] 1,000 mg PO Q6HR PRN #30 tablet 06/07/20 Simethicone [Gas-X] 125 mg PO AC-TID PRN #20 capsule 06/07/20 HYDROcodone/APAP 5-325MG [[place] 1 tab PO Q6HR PRN 3 Days #12 tab 10/05/20 5-325] Allergies Allergy/AdvReac Type Severity Reaction Status Date / Time propoxyphene napsylate Allergy Anaphylaxis Verified 02/28/21 12:25 [From [place]-N 100] codeine AdvReac Nausea & Verified 02/28/21 12:25 Vomiting Review of Systems ROS Statement: Those systems with pertinent positive or pertinent negative responses have been documented in the HPI. ROS Other: All systems not noted in ROS Statement are negative. Constitutional: Denies: fever Eyes: Denies: eye pain ENT: Denies: ear pain Respiratory: Denies: cough Cardiovascular: Denies: chest pain Endocrine: Denies: fatigue Gastrointestinal: Denies: abdominal pain Genitourinary: Denies: dysuria Musculoskeletal: Reports: as per HPI Skin: Denies: rash Neurological: Denies: weakness Past Medical History Past Medical History: Asthma, Diabetes Mellitus, GERD/Reflux, Hyperlipidemia, Hypertension, Syncope Additional Past Medical History / Comment(s): cut to left ring finger and got infection of mrsa, GALLBLADDER DISORDER, History of Any Multi-Drug Resistant Organisms: MRSA Date of last positivie culture/infection: 2007 MDRO Source:: right leg, right arm, right knee, lt ring finger Past Surgical History: Cholecystectomy, Orthopedic Surgery Additional Past Surgical History / Comment(s): Bilateral eye lasik, wisdom teeth, lt ring finger sx to remove mrsa, Past Anesthesia/Blood Transfusion Reactions: No Reported Reaction Past Psychological History: Anxiety, Depression Smoking Status: Never smoker Past Alcohol Use History: None Reported Past Drug Use History: None Reported - Past Family History Mother Family Medical History: No Reported History General Exam Limitations: no limitations General appearance: alert, in no apparent distress Head exam: Present: normocephalic Eye exam: Present: normal appearance Neck exam: Present: normal inspection. Absent: tenderness Respiratory exam: Present: normal lung sounds bilaterally Cardiovascular Exam: Present: regular rate, normal rhythm Extremities exam: Present: other (Mild diffuse tenderness right shoulder region. Mild discomfort with passive range of motion. Moderate to severe discomfort with active range of motion, limiting range of motion. Distally, he is neurovascular intact. Good strength. Cap refill less than 2 seconds. radial pulse intact.) Back exam: Present: normal inspection Neurological exam: Present: alert. Absent: motor sensory deficit Psychiatric exam: Present: normal affect, normal mood Skin exam: Present: normal color Course Vital Signs 02/28/21 12:26 Temperature 98.3 F Pulse Rate 70 Respiratory 20 Rate Blood Pressure 140/94 O2 Sat by Pulse 97 Oximetry Medical Decision Making - Radiology Data Radiology results: image reviewed (X-ray right shoulder reveals no acute process) Disposition Clinical Impression: Strain of shoulder Disposition: HOME SELF-CARE Condition: Stable Instructions (If sedation given, give patient instructions): Shoulder Sprain (ED) Additional Instructions: Please follow-up with [facility] in the next day or 2 for recheck. Continue naproxen as needed. Use sling. Return for increased pain, swelling, redness, weakness, worsening symptoms or other concerns. Is patient prescribed a controlled substance at d/c from ED?: No Referrals: Yesica Hinds MD [Primary Care Provider] - 1-2 days Time of Disposition: 13:02
== END 2021-02-28 13:27 | disposition home or self-care (01) ==
LOC: EC 12:18
DX: S46.911A Strain of unspecified muscle, fascia and tendon at shoulder and upper arm level, right arm, initial encounter (principal); J45.909 Unspecified asthma, uncomplicated; E11.9 Type 2 diabetes mellitus without complications; K21.9 Gastro-esophageal reflux disease without esophagitis; E78.5 Hyperlipidemia, unspecified; I10 Essential (primary) hypertension; F41.9 Anxiety disorder, unspecified; F32.A Depression, unspecified; Z79.4 Long term (current) use of insulin; Z79.899 Other long term (current) drug therapy
CPT/HCPCS: 73030; 99283; 96372; J1885

== ENCOUNTER 2021-03-07 09:27 | Emergency (ER) | payer OTHER, MEDICAID ==
[2021-03-07 09:53] VITALS: BP 133/88; PULSE 71; RESP 18; TEMP 98.5
--- NOTE | 2021-03-07 10:41 | ED ---
General Adult HPI - General Chief complaint: Extremity Injury, Upper Stated complaint: lt shoulder pain Time Seen by Provider: 03/07/21 10:03 Source: patient, RN notes reviewed Mode of arrival: ambulatory Limitations: no limitations - History of Present Illness Initial comments: 40-year-old male presents to the emergency department, accompanied by his s chhaya, for evaluation of left shoulder pain. 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 Patient states this discomfort worsens with activity and has pain that radiates down the left arm. States he has taken naproxen as he has been prescribed for the right shoulder. Also has applied ice with no improvement. Denies pain at rest. Does have some decreased range of motion. Denies neck pain, dizziness, chest pain, shortness of breath, difficulty breathing, and back pain. - Related Data Home Medications Medication Instructions Recorded Confirmed Insulin Aspart [NovoLOG Flexpen] See Protocol SQ AC-TID 04/29/17 03/07/21 Insulin Glargine [Lantus Vial] 80 unit SQ HS 04/29/17 03/07/21 Cholecalciferol [Vitamin D3 (25 25 mcg PO DAILY 03/24/20 03/07/21 Mcg = 1000 Iu)] Pravastatin Sodium [Pravachol] 80 mg PO HS 03/24/20 03/07/21 buPROPion [Wellbutrin] 100 mg PO DAILY 03/24/20 03/07/21 lisinopriL [Zestril] 2.5 mg PO HS 03/24/20 03/07/21 Mometasone/Formoterol [Dulera 100 2 puff INHALATION RT-DAILY 05/02/20 03/07/21 Mcg-5 Mcg Inhaler] Naproxen 500 mg PO BID PRN 05/02/20 03/07/21 Albuterol Sulfate [Proair Hfa] 2 puff INHALATION RT-QID PRN 03/07/21 03/07/21 Allergies Allergy/AdvReac Type Severity Reaction Status Date / Time codeine AdvReac Nausea & Verified 03/07/21 12:40 Vomiting propoxyphene napsylate AdvReac seizure Verified 03/07/21 12:40 [From [place]-N 100] Review of Systems ROS Statement: Those systems with pertinent positive or pertinent negative responses have been documented in the HPI. ROS Other: All systems not noted in ROS Statement are negative. Past Medical History Past Medical History: Asthma, Diabetes Mellitus, GERD/Reflux, Hyperlipidemia, Hypertension, Syncope Additional Past Medical History / Comment(s): cut to left ring finger and got infection of mrsa, GALLBLADDER DISORDER, History of Any Multi-Drug Resistant Organisms: MRSA Date of last positivie culture/infection: 2007 MDRO Source:: right leg, right arm, right knee, lt ring finger Past Surgical History: Cholecystectomy, Orthopedic Surgery Additional Past Surgical History / Comment(s): Bilateral eye lasik, wisdom teeth, lt ring finger sx to remove mrsa, Past Anesthesia/Blood Transfusion Reactions: No Reported Reaction Past Psychological History: Anxiety, Depression Smoking Status: Never smoker Past Alcohol Use History: None Reported Past Drug Use History: None Reported - Past Family History Mother Family Medical History: No Reported History General Exam Limitations: no limitations General appearance: alert, in no apparent distress, other (Well-developed, well- nourished male in no acute distress. Initial temperature 98.5, pulse 71, respirations 18, blood pressure 133/88, pulse ox 100% on room air.) Head exam: Present: atraumatic, normocephalic, normal inspection Neck exam: Present: normal inspection. Absent: tenderness, meningismus, ly mphadenopathy Respiratory exam: Present: normal lung sounds bilaterally. Absent: respiratory distress, wheezes, rales, rhonchi, stridor Cardiovascular Exam: Present: regular rate, normal rhythm, normal heart sounds. Absent: systolic murmur, diastolic murmur, rubs, gallop, clicks Left General: Present: normal inspection Shoulder Exam: Present: normal inspection. Absent: full ROM (Range of motion limited by pain; extension and abduction around 60 and limited by pain), tenderness (Mild tenderness upon palpation of the upper arm), swelling, deformity, crepitus, tenderness over AC joint Elbow exam: Present: normal inspection, full ROM. Absent: tenderness Forearm Wrist exam: Present: normal inspection, full ROM. Absent: tenderness Hand Wrist exam: Present: normal inspection, full ROM Neuro motor exam: Present: thumb opposition intact, fingers 2-5 abduction intact Vascular: Present: normal capillary refill, radial pulse, brachial pulse, ulnar pulse. Absent: vascular compromise Back exam: Present: normal inspection, full ROM. Absent: tenderness, paraspinal tenderness, vertebral tenderness Neurological exam: Present: alert, oriented X3, CN II-XII intact Psychiatric exam: Present: normal affect, normal mood Skin exam: Present: warm, dry, intact, normal color. Absent: rash Course Vital Signs 03/07/21 09:50 Temperature 98.5 F Pulse Rate 71 Respiratory 18 Rate Blood Pressure 133/88 O2 Sat by Pulse 100 Oximetry Medical Decision Making - Medical Decision Making This is a 40-year-old male with a recent history of right rotator cuff injury who presents to the emergency department for evaluation of left shoulder pain. Upon exam, patient's discomfort is musculoskeletal in nature and range of motion is limited by pain. Also has mild increased discomfort with palpation of the entire left upper arm. No trauma or injury. Suspect pain is related to overuse as patient states he has spent the last 2 work days using a push broom at work. Patient was given a work note to rest. Did discuss gentle range of motion activity in effort to prevent frozen shoulder syndrome. Instructed to utilize Naprosyn that he has at home for pain and inflammation. Suggested alternating heat and ice as tolerated. Patient will be discharged home to follow up with his primary care provider for a recheck. Return parameters were discussed in detail. Patient verbalizes understanding and agrees with this plan. This patient's care was discussed with my attending . Disposition Clinical Impression: Overuse injury, Left shoulder pain Disposition: HOME SELF-CARE Condition: Stable Instructions (If sedation given, give patient instructions): Shoulder Pain (ED) Additional Instructions: Rest. Gentle range of motion exercises. Follow up with your primary care provider for a recheck as discussed. Work note provided to arrange for follow-up care. Continue taking naproxen as prescribed. Return to the emergency department with any new, worsening, or concerning symptoms. Is patient prescribed a controlled substance at d/c from ED?: No Referrals: Yesica Hinds MD [Primary Care Provider] - 1-2 days Time of Disposition: 11:07
== END 2021-03-07 11:19 | disposition home or self-care (01) ==
LOC: EC 09:27
DX: M25.512 Pain in left shoulder (principal); M70.812 Other soft tissue disorders related to use, overuse and pressure, left shoulder; Y93.89 Activity, other specified; J45.909 Unspecified asthma, uncomplicated; F41.9 Anxiety disorder, unspecified; F32.A Depression, unspecified; E11.9 Type 2 diabetes mellitus without complications; E78.5 Hyperlipidemia, unspecified; I10 Essential (primary) hypertension; Z79.4 Long term (current) use of insulin; Z79.899 Other long term (current) drug therapy; Z79.51 Long term (current) use of inhaled steroids
CPT/HCPCS: 99283

== ENCOUNTER 2021-05-13 14:16 | Emergency (ER) | payer MEDICAID ==
[2021-05-13 14:25] VITALS: BP 141/91; PULSE 83; RESP 20; TEMP 97.8
[2021-05-13] MEDS ORDERED: ORPHENADRINE 30 MG/ML 2 ML VIAL IM STA (16:03)
[2021-05-13] MEDS ORDERED: KETOROLAC 15 MG/ML 1 ML VIAL IM STA (16:03)
--- NOTE | 2021-05-13 16:05 | ED ---
General Adult HPI - General Chief complaint: Extremity Problem,Nontraumatic Stated complaint: Right Leg Injury Time Seen by Provider: 05/13/21 15:50 Source: patient, RN notes reviewed Mode of arrival: ambulatory Limitations: no limitations - History of Present Illness Initial comments: Patient is a pleasant 40-year-old male presenting to the emergency Department with right leg pain. 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 Patient did question if something got tweaked. Discomfort started more significantly around 11 PM and even more so early in the morning. No history of similar chronic problems are chronic back problems. Discomfort is radiating. Discomfort is moderate and in creases with movements. No weakness. No incontinence or retention of bowel or bladder products - Related Data Home Medications Medication Instructions Recorded Confirmed Pravastatin Sodium [Pravachol] 80 mg PO HS 03/24/20 05/13/21 buPROPion [Wellbutrin] 100 mg PO DAILY 03/24/20 05/13/21 Mometasone/Formoterol [Dulera 100 2 puff INHALATION RT-DAILY 05/02/20 05/13/21 Mcg-5 Mcg Inhaler] Naproxen 500 mg PO BID PRN 05/02/20 05/13/21 Albuterol Sulfate [Proair Hfa] 2 puff INHALATION RT-QID PRN 03/07/21 05/13/21 Alogliptin Benzoate [Alogliptin] 25 mg PO DAILY 05/13/21 05/13/21 Cholecalciferol [Vitamin D3 (25 25 mcg PO DAILY 05/13/21 05/13/21 Mcg = 1000 Iu)] Ibuprofen [Motrin] 800 mg PO Q8H PRN 05/13/21 05/13/21 Insulin Glargine,Hum.rec.anlog 80 unit SQ HS 05/13/21 05/13/21 [Lantus Solostar Pen] Insulin Lispro [humaLOG Kwikpen] 25 unit SQ AC-TID 05/13/21 05/13/21 Previous Rx's Medication Instructions Recorded Cyclobenzaprine [Flexeril] 10 mg PO TID PRN #12 tablet 05/13/21 Ibuprofen [Motrin] 600 mg PO Q6HR PRN #20 tab 05/13/21 Allergies Allergy/AdvReac Type Severity Reaction Status Date / Time codeine AdvReac Nausea & Verified 05/13/21 16:38 Vomiting propoxyphene napsylate AdvReac seizure Verified 05/13/21 16:38 [From [facility]-N 100] Review of Systems ROS Statement: Those systems with pertinent positive or pertinent negative responses have been documented in the HPI. ROS Other: All systems not noted in ROS Statement are negative. Constitutional: Denies: fever Eyes: Denies: eye pain ENT: Denies: ear pain Respiratory: Denies: cough Cardiovascular: Denies: chest pain Endocrine: Denies: fatigue Gastrointestinal: Denies: abdominal pain Genitourinary: Denies: dysuria Musculoskeletal: Reports: as per HPI. Denies: back pain Skin: Denies: rash Neurological: Denies: weakness Past Medical History Past Medical History: Asthma, Diabetes Mellitus, GERD/Reflux, Hyperlipidemia, Hypertension, Syncope Additional Past Medical History / Comment(s): cut to left ring finger and got infection of mrsa, GALLBLADDER DISORDER, History of Any Multi-Drug Resistant Organisms: MRSA Date of last positivie culture/infection: 2007 MDRO Source:: right leg, right arm, right knee, lt ring finger Past Surgical History: Cholecystectomy, Orthopedic Surgery Additional Past Surgical History / Comment(s): Bilateral eye lasik, wisdom teeth, lt ring finger sx to remove mrsa, Past Anesthesia/Blood Transfusion Reactions: No Reported Reaction Past Psychological History: Anxiety, Depression Smoking Status: Never smoker Past Alcohol Use History: None Reported Past Drug Use History: None Reported - Past Family History Mother Family Medical History: No Reported History General Exam Limitations: no limitations General appearance: alert, in no apparent distress Head exam: Present: normocephalic Eye exam: Present: normal appearance Neck exam: Present: normal inspection Respiratory exam: Present: normal lung sounds bilaterally Cardiovascular Exam: Present: regular rate, normal rhythm GI/Abdominal exam: Present: soft. Absent: tenderness Extremities exam: Present: tenderness (Right hip region, more so posteriorly). Absent: calf tenderness Back exam: Present: normal inspection. Absent: tenderness, vertebral tenderness Neurological exam: Present: alert. Absent: motor sensory deficit Psychiatric exam: Present: normal affect, normal mood Skin exam: Present: normal color Course Vital Signs 05/13/21 14:22 Temperature 97.8 F Pulse Rate 83 Respiratory 20 Rate Blood Pressure 141/91 O2 Sat by Pulse 98 Oximetry Medical Decision Making - Medical Decision Making Patient reevaluated and updated - Radiology Data Radiology results: image reviewed (Femur x-ray shows no acute process) Disposition Clinical Impression: Arthralgia of right hip Disposition: HOME SELF-CARE Condition: Stable Instructions (If sedation given, give patient instructions): Arthralgia (ED) Additional Instructions: Please do follow-up with primary care physician within the next couple days for recheck. Prescription for Motrin 600 and muscle relaxers have been sent to pharmacy. Return for weakness, increased pain, swelling, fever, worsening symptoms or other concerns. Prescriptions: Cyclobenzaprine [Flexeril] 10 mg PO TID PRN #12 tablet PRN Reason: Pain Ibuprofen [Motrin] 600 mg PO Q6HR PRN #20 tab PRN Reason: Pain Is patient prescribed a controlled substance at d/c from ED?: No Referrals: Yesica Hinds MD [Primary Care Provider] - 1-2 days Time of Disposition: 17:36
--- NOTE | 2021-05-13 17:13 | XR ---
EXAMINATION TYPE: XR femur RT DATE OF EXAM: 05/13/2021 COMPARISON: NONE HISTORY: Femur pain TECHNIQUE: 4 views FINDINGS: Hip joint is intact. I see no fracture nor dislocation. Knee joint is intact. There is no s ign of any joint effusion. IMPRESSION: Negative right femur exam. No fracture.
== END 2021-05-13 17:57 | disposition home or self-care (01) ==
LOC: EC 14:16
DX: M25.551 Pain in right hip (principal); J45.909 Unspecified asthma, uncomplicated; E11.9 Type 2 diabetes mellitus without complications; E78.5 Hyperlipidemia, unspecified; I10 Essential (primary) hypertension; F41.9 Anxiety disorder, unspecified; F31.9 Bipolar disorder, unspecified; Z79.4 Long term (current) use of insulin; Z79.51 Long term (current) use of inhaled steroids
CPT/HCPCS: 96372; 99283

== ENCOUNTER 2021-05-22 22:23 | Emergency (ER) | payer MEDICAID ==
[2021-05-22 23:13] LABS: Glucose,Whole Blood 68 mg/dL (75-99)
[2021-05-22 23:38] LABS: Basophils % (A) 0 %; Eosinophils # (A) 0.1 k/uL (0-0.7); Eosinophils % (A) 2 %; HCT 46.8 % (39.0-53.0); Lymphocytes # (A) 2.9 k/uL (1.0-4.8); Lymphocytes % (A) 44 %; MCH 31.4 pg (25.0-35.0); MCHC 34.2 g/dL (31.0-37.0); Mean Platelet Volume 9.6; Monocytes # (A) 0.4 k/uL (0-1.0); Monocytes % (A) 5 %; Neutrophils # (A) 3.1 k/uL (1.3-7.7); Neutrophils % (A) 48 %; Platelet Count 253 k/uL (150-450); RBC 5.09 m/uL (4.30-5.90); RDW 13.2 % (11.5-15.5); WBC 6.6 k/uL (3.8-10.6)
[2021-05-22 23:52] LABS: ALT 37 U/L (4-49); AST 31 U/L (17-59); African American GFR (CKD) >90 (>60 ml/min/1.73 sqM); Albumin 4.2 g/dL (3.5-5.0); Alkaline Phosphatase 65 U/L (38-126); Anion Gap 6 mmol/L; Blood Urea Nitrogen 16 mg/dL (9-20); Calcium 9.6 mg/dL (8.4-10.2); Carbon Dioxide 31 mmol/L (22-30); Chloride 105 mmol/L (98-107); Glucose 85 mg/dL (74-99); Non-African American GFR(CKD) >90 (>60 ml/min/1.73 sqM); Potassium 4.4 mmol/L (3.5-5.1); Sodium 142 mmol/L (137-145); Total Bilirubin 0.6 mg/dL (0.2-1.3); Total Protein 7.2 g/dL (6.3-8.2)
[2021-05-23 00:07] LABS: Glucose,Whole Blood 153 mg/dL (75-99)
[2021-05-23 00:47] LABS: Appearance,Urine Clear (Clear); Bilirubin,Urine Negative (Negative); Blood,Urine Negative (Negative); Color,Urine Yellow; Glucose,Urine (UA) 3+ (Negative); Ketones,Urine Negative (Negative); Leukocyte Esterase,Urine Negative (Negative); Nitrite,Urine Negative (Negative); PH, Urine 7.5 (5.0-8.0); Protein,Urine Negative (Negative); Specific Gravity,Urine 1.021 (1.001-1.035)
[2021-05-23 01:59] VITALS: BP 120/69; PULSE 84; RESP 18; TEMP 97.4
--- NOTE | 2021-05-23 02:00 | ED ---
General Adult HPI - General Chief complaint: Recheck/Abnormal Lab/Rx Stated complaint: Low blood sugar Time Seen by Provider: 05/22/21 23:28 Source: patient, RN notes reviewed, old records reviewed Mode of arrival: wheelchair - History of Present Illness Initial comments: Patient is a 40-year-old male with past medical history remarkable for insulin dependent diabetes, hypertension presents emergency department concern for hyperglycemia. Patient saw his sugar was 40 at home. Was somewhat nauseous and cannot emergency department for evaluation. States he typically takes Lantus 80 units every morning, which she last took yesterday morning as well as Humalog 30 units with each meal. He states he thinks he may have taken a smaller dinner when he took the Humalog earlier. He woke up, felt lightheaded, checked his sugar and subsequently came to the emergency department for evaluation. Denies being on any other diabetic medications. Has no other acute complaints at this time. I evaluated the patient was placed in a room. - Related Data Home Medications Medication Instructions Recorded Confirmed Pravastatin Sodium [Pravachol] 80 mg PO HS 03/24/20 05/13/21 buPROPion [Wellbutrin] 100 mg PO DAILY 03/24/20 05/13/21 Mometasone/Formoterol [Dulera 100 2 puff INHALATION RT-DAILY 05/02/20 05/13/21 Mcg-5 Mcg Inhaler] Naproxen 500 mg PO BID PRN 05/02/20 05/13/21 Albuterol Sulfate [Proair Hfa] 2 puff INHALATION RT-QID PRN 03/07/21 05/13/21 Alogliptin Benzoate [Alogliptin] 25 mg PO DAILY 05/13/21 05/13/21 Cholecalciferol [Vitamin D3 (25 25 mcg PO DAILY 05/13/21 05/13/21 Mcg = 1000 Iu)] Ibuprofen [Motrin] 800 mg PO Q8H PRN 05/13/21 05/13/21 Insulin Glargine,Hum.rec.anlog 80 unit SQ HS 05/13/21 05/13/21 [Lantus Solostar Pen] Insulin Lispro [humaLOG Kwikpen] 25 unit SQ AC-TID 05/13/21 05/13/21 Previous Rx's Medication Instructions Recorded Cyclobenzaprine [Flexeril] 10 mg PO TID PRN #12 tablet 05/13/21 Ibuprofen [Motrin] 600 mg PO Q6HR PRN #20 tab 05/13/21 Allergies Allergy/AdvReac Type Severity Reaction Status Date / Time codeine AdvReac Nausea & Verified 05/22/21 23:05 Vomiting propoxyphene napsylate AdvReac seizure Verified 05/22/21 23:05 [From Darvocet-N 100] Review of Systems ROS Statement: Those systems with pertinent positive or pertinent negative responses have been documented in the HPI. Review of Systems: CONST: Denies fever EYES: Denies blurry vision ENT: Denies nasal congestion C/V: Denies Chest pain RESP: Denies shortness of breath GI: Denies abdominal pain : Denies dysuria SKIN: Denies rash. MSK: Denies joint pain. NEURO: Versus lightheadedness ROS Other: All systems not noted in ROS Statement are negative. Past Medical History Past Medical History: Asthma, Diabetes Mellitus, GERD/Reflux, Hyperlipidemia, Hypertension, Syncope Additional Past Medical History / Comment(s): cut to left ring finger and got infection of mrsa, GALLBLADDER DISORDER, History of Any Multi-Drug Resistant Organisms: MRSA Date of last positivie culture/infection: 2007 MDRO Source:: right leg, right arm, right knee, lt ring finger Past Surgical History: Cholecystectomy, Orthopedic Surgery Additional Past Surgical History / Comment(s): Bilateral eye lasik, wisdom teeth, lt ring finger sx to remove mrsa, Past Anesthesia/Blood Transfusion Reactions: No Reported Reaction Past Psychological History: Anxiety, Depression Smoking Status: Never smoker Past Alcohol Use History: None Reported Past Drug Use History: None Reported - Past Family History Mother Family Medical History: No Reported History General Exam - General Exam Comments Initial Comments: General: Appears in no acute distress. HEAD: Normal with no signs of head trauma. EYES: PERRLA, EOMI, conjunctiva normal, no discharge. ENT: Hearing grossly intact, normal oropharynx. RESPIRATORY: Clear breath sounds bilaterally. No wheezes, rales, or rhonchi. C/V: Regular rate and rhythm. S1 and S2 auscultated, no edema, peripheral pulses 2+ and intact throughout ABD: Abd is soft, nontender, nondistended EXT: Normal range of motion, no obvious deformity SKIN: No rashes or lesions observed on exposed skin. NEURO: Alert and oriented 4. No focal deficits. Course Vital Signs 05/22/21 05/23/21 22:56 01:58 Temperature 97.8 F 97.4 F L Pulse Rate 100 84 Respiratory 22 18 Rate Blood Pressure 154/92 120/69 O2 Sat by Pulse 99 99 Oximetry Medical Decision Making - Medical Decision Making Based on patient's presentation and physical exam, I'm concerned for a hypoglycemic episode, likely secondary to his normal insulin use. He is on no current long-acting medications. He last took Lantus approximately 24 hours ago. Her blood sugar in triage was 68, he will be given food including crackers, juice and we will recheck blood sugar. He was in agreement this plan. Basic labs also be obtained. Laboratory studies are remarkable for 3+ urine glucose. Otherwise unremarkable. Repeat blood sugar is 153. We'll continue to observe until 1:30 AM repeat sugar then. He was in agreement this plan. The symptoms have since resolved. Repeat blood sugar at 1:30 AM was over 200. I do believe it is safer to be discharged home. He is currently symptomatic. He was in agreement with the plan. I instructed the patient to follow up with their PCP in the next 3 days. I explained that the patient should return to the emergency department if they experience any worsening symptoms. Strict return precautions were discussed with the patient. The patient expressed understanding of these instructions. I answered all questions that the patient had. The patient was discharged home in good condition with their prescriptions and follow up information. - Lab Data Result diagrams: 05/22/21 23:17 05/22/21 23:17 Lab Results 05/22/21 05/22/21 05/22/21 Range/Units 23:02 23:17 23:17 WBC 6.6 (3.8-10.6) k/uL RBC 5.09 (4.30-5.90) m/uL Hgb 16.0 (13.0-17.5) gm/dL Hct 46.8 (39.0-53.0) % MCV 92.0 (80.0-100.0) fL MCH 31.4 (25.0-35.0) pg MCHC 34.2 (31.0-37.0) g/dL RDW 13.2 (11.5-15.5) % Plt Count 253 (150-450) k/uL MPV 9.6 Neutrophils % 48 % Lymphocytes % 44 % Monocytes % 5 % Eosinophils % 2 % Basophils % 0 % Neutrophils # 3.1 (1.3-7.7) k/uL Lymphocytes # 2.9 (1.0-4.8) k/uL Monocytes # 0.4 (0-1.0) k/uL Eosinophils # 0.1 (0-0.7) k/uL Basophils # 0.0 (0-0.2) k/uL Sodium 142 (137-145) mmol/L Potassium 4.4 (3.5-5.1) mmol/L Chloride 105 (98-107) mmol/L Carbon Dioxide 31 H (22-30) mmol/L Anion Gap 6 mmol/L BUN 16 (9-20) mg/dL Creatinine 0.84 (0.66-1.25) mg/dL Est GFR (CKD-EPI)AfAm >90 (>60 ml/min/1.73 sqM) Est GFR (CKD-EPI)NonAf >90 (>60 ml/min/1.73 sqM) Glucose 85 (74-99) mg/dL POC Glucose (mg/dL) 68 L (75-99) mg/dL POC Glu Folder And Notcher ID Jacquelyn Shukla Calcium 9.6 (8.4-10.2) mg/dL Total Bilirubin 0.6 (0.2-1.3) mg/dL AST 31 (17-59) U/L ALT 37 (4-49) U/L Alkaline Phosphatase 65 (38-126) U/L Total Protein 7.2 (6.3-8.2) g/dL Albumin 4.2 (3.5-5.0) g/dL Urine Color Urine Appearance (Clear) Urine pH (5.0-8.0) Ur Specific [place] (1.001-1.035) Urine Protein (Negative) Urine Glucose (UA) (Negative) Urine Ketones (Negative) Urine Blood (Negative) Urine Nitrite (Negative) Urine Bilirubin (Negative) Urine Urobilinogen (<2.0) mg/dL Ur Leukocyte Esterase (Negative) 05/23/21 05/23/21 Range/Units 00:05 00:05 WBC (3.8-10.6) k/uL RBC (4.30-5.90) m/uL Hgb (13.0-17.5) gm/dL Hct (39.0-53.0) % MCV (80.0-100.0) fL MCH (25.0-35.0) pg MCHC (31.0-37.0) g/dL RDW (11.5-15.5) % Plt Count (150-450) k/uL MPV Neutrophils % % Lymphocytes % % Monocytes % % Eosinophils % % Basophils % % Neutrophils # (1.3-7.7) k/uL Lymphocytes # (1.0-4.8) k/uL Monocytes # (0-1.0) k/uL Eosinophils # (0-0.7) k/uL Basophils # (0-0.2) k/uL Sodium (137-145) mmol/L Potassium (3.5-5.1) mmol/L Chloride (98-107) mmol/L Carbon Dioxide (22-30) mmol/L Anion Gap mmol/L BUN (9-20) mg/dL Creatinine (0.66-1.25) mg/dL Est GFR (CKD-EPI)AfAm (>60 ml/min/1.73 sqM) Est GFR (CKD-EPI)NonAf (>60 ml/min/1.73 sqM) Glucose (74-99) mg/dL POC Glucose (mg/dL) 153 H (75-99) mg/dL POC Glu Folder And Notcher ID Agatha Palencia Calcium (8.4-10.2) mg/dL Total Bilirubin (0.2-1.3) mg/dL AST (17-59) U/L ALT (4-49) U/L Alkaline Phosphatase (38-126) U/L Total Protein (6.3-8.2) g/dL Albumin (3.5-5.0) g/dL Urine Color Yellow Urine Appearance Clear (Clear) Urine pH 7.5 (5.0-8.0) Ur Specific [place] 1.021 (1.001-1.035) Urine Protein Negative (Negative) Urine Glucose (UA) 3+ H (Negative) Urine Ketones Negative (Negative) Urine Blood Negative (Negative) Urine Nitrite Negative (Negative) Urine Bilirubin Negative (Negative) Urine Urobilinogen 3.0 (<2.0) mg/dL Ur Leukocyte Esterase Negative (Negative) Disposition Clinical Impression: Hypoglycemia Disposition: HOME SELF-CARE Condition: Good Instructions (If sedation given, give patient instructions): Hypoglycemia in a Person with Diabetes (ED) Is patient prescribed a controlled substance at d/c from ED?: No Referrals: Yesica Hinds MD [Primary Care Provider] - 1-2 days
[2021-05-23 02:26] LABS: Glucose,Whole Blood 257 mg/dL (75-99)
== END 2021-05-23 02:20 | disposition home or self-care (01) ==
LOC: EC 22:23
DX: E11.649 Type 2 diabetes mellitus with hypoglycemia without coma (principal); J45.909 Unspecified asthma, uncomplicated; K21.9 Gastro-esophageal reflux disease without esophagitis; E78.5 Hyperlipidemia, unspecified; I10 Essential (primary) hypertension; F41.9 Anxiety disorder, unspecified; F32.A Depression, unspecified; Z79.4 Long term (current) use of insulin; Z88.5 Allergy status to narcotic agent; Z90.49 Acquired absence of other specified parts of digestive tract
CPT/HCPCS: 36415; 80053; 81003; 85025; 99284

== ENCOUNTER 2021-05-26 23:17 | Emergency (ER) | payer MEDICAID ==
[2021-05-26 23:45] VITALS: BP 130/78; PULSE 111; RESP 24; TEMP 98.3
--- NOTE | 2021-05-27 00:18 | XR ---
EXAMINATION TYPE: XR shoulder complete RT DATE OF EXAM: 05/26/2021 COMPARISON: NONE HISTORY: Shoulder pain TECHNIQUE: 3 views FINDINGS: There is no fracture nor dislocation. Glenohumeral joint is intact. There is intact AC join t. IMPRESSION: Negative right shoulder exam. No fracture.
--- NOTE | 2021-05-27 00:18 | XR ---
EXAMINATION TYPE: XR elbow complete RT DATE OF EXAM: 05/26/2021 COMPARISON: NONE HISTORY: Elbow pain TECHNIQUE: 3 views FINDINGS: There is no evidence of fracture nor dislocation. Joint spaces are normal. There is no sign of elbow joint effusion. IMPRESSION: Negative right elbow exam. No fracture.
[2021-05-27] MEDS ORDERED: IBUPROFEN 600 MG STARTER PACK 4 TAB BTL PO STA (00:43)
--- NOTE | 2021-05-27 00:44 | ED ---
Upper Extremity HPI - General Chief Complaint: Extremity Injury, Upper Stated Complaint: Fall, Rt Shoulder Pain Time Seen by Provider: 05/27/21 00:34 Source: patient Mode of arrival: ambulatory Limitations: no limitations - History of Present Illness Initial Comments: 40-year-old male patient presents to the emergency department today for evaluation of right elbow and right shoulder pain after a slip and fall accident. Patient states she was walking when he slipped on ice and he fell and landed directly on his elbow. Patient states that he's had persistent pain since. He did have a recent rotator cuff injury is concerned he may have injured it again. Denies taking any medication for his symptoms. Denies hitting his head or losing consciousness. Denies any neck or back pain. Denies any other injuries. - Related Data Home Medications Medication Instructions Recorded Confirmed Pravastatin Sodium [Pravachol] 80 mg PO HS 03/24/20 05/13/21 buPROPion [Wellbutrin] 100 mg PO DAILY 03/24/20 05/13/21 Mometasone/Formoterol [Dulera 100 2 puff INHALATION RT-DAILY 05/02/20 05/13/21 Mcg-5 Mcg Inhaler] Naproxen 500 mg PO BID PRN 05/02/20 05/13/21 Albuterol Sulfate [Proair Hfa] 2 puff INHALATION RT-QID PRN 03/07/21 05/13/21 Alogliptin Benzoate [Alogliptin] 25 mg PO DAILY 05/13/21 05/13/21 Cholecalciferol [Vitamin D3 (25 25 mcg PO DAILY 05/13/21 05/13/21 Mcg = 1000 Iu)] Ibuprofen [Motrin] 800 mg PO Q8H PRN 05/13/21 05/13/21 Insulin Glargine,Hum.rec.anlog 80 unit SQ HS 05/13/21 05/13/21 [Lantus Solostar Pen] Insulin Lispro [humaLOG Kwikpen] 25 unit SQ AC-TID 05/13/21 05/13/21 Previous Rx's Medication Instructions Recorded Cyclobenzaprine [Flexeril] 10 mg PO TID PRN #12 tablet 05/13/21 Ibuprofen [Motrin] 600 mg PO Q6HR PRN #20 tab 05/13/21 Ibuprofen [Motrin] 600 mg PO Q8HR PRN #30 tab 05/27/21 Allergies Allergy/AdvReac Type Severity Reaction Status Date / Time codeine AdvReac Nausea & Verified 05/26/21 23:45 Vomiting propoxyphene napsylate AdvReac seizure Verified 05/26/21 23:45 [From Darvocet-N 100] Review of Systems ROS Statement: Those systems with pertinent positive or pertinent negative responses have been documented in the HPI. ROS Other: All systems not noted in ROS Statement are negative. Past Medical History Past Medical History: Asthma, Diabetes Mellitus, GERD/Reflux, Hyperlipidemia, Hypertension, Syncope Additional Past Medical History / Comment(s): cut to left ring finger and got infection of mrsa, GALLBLADDER DISORDER, History of Any Multi-Drug Resistant Organisms: MRSA Date of last positivie culture/infection: 2007 MDRO Source:: right leg, right arm, right knee, lt ring finger Past Surgical History: Cholecystectomy, Orthopedic Surgery Additional Past Surgical History / Comment(s): Bilateral eye lasik, wisdom teeth, lt ring finger sx to remove mrsa, Past Anesthesia/Blood Transfusion Reactions: No Reported Reaction Past Psychological History: Anxiety, Depression Smoking Status: Never smoker Past Alcohol Use History: None Reported Past Drug Use History: None Reported - Past Family History Mother Family Medical History: No Reported History General Exam Limitations: no limitations General appearance: alert, in no apparent distress, other (This is a well- developed, well-nourished adult male in no acute distress.) Neck exam: Present: normal inspection, full ROM, other (Nontender, no step-off, no deformity to firm midline palpation of the posterior cervical spine. Full range of motion without pain or limitation.). Absent: tenderness, meningismus, lymphadenopathy Respiratory exam: Present: normal lung sounds bilaterally. Absent: respiratory distress, wheezes, rales, rhonchi, stridor Cardiovascular Exam: Present: normal rhythm, tachycardia, normal heart sounds. Absent: systolic murmur, diastolic murmur, rubs, gallop, clicks Extremities exam: Present: full ROM, tenderness (Right posterior elbow), normal capillary refill, other (Skin to the right arm is pink, warm, dry. Cap refill less than 3 seconds. Radial pulses 2+. No soft tissue swelling noted around the elbow. Right shoulder joint is intact.). Absent: normal inspection, pedal edema, joint swelling, calf tenderness Back exam: Present: normal inspection. Absent: vertebral tenderness Neurological exam: Present: alert, oriented X3, CN II-XII intact Psychiatric exam: Present: normal affect, normal mood Skin exam: Present: warm, dry, intact, normal color. Absent: rash Course Vital Signs 05/26/21 23:40 Temperature 98.3 F Pulse Rate 111 H Respiratory 24 Rate Blood Pressure 130/78 O2 Sat by Pulse 97 Oximetry Medical Decision Making - Medical Decision Making 40-year-old male patient presents to the emergency department today for evaluation of right elbow and right shoulder pain after a slip and fall accident. Physical examination did not reveal any soft tissue swelling. Neurovascular status is intact. He does exhibit full range of motion including full extension of the elbow. Xrays of the elbow and shoulder were negative. We did discuss rest, ice to the arm. He is instructed to follow-up with his primary care physician for recheck in 1-2 days. Return parameters were discussed in detail. He verbalizes understanding and agrees with this plan. My attending is Dr. Patino. - Radiology Data Radiology results: report reviewed, image reviewed 3 views of the right shoulder obtained. Report was reviewed in its entirety. Impression by Dr. Webster shows negative right shoulder exam. No fracture. 3 views of the right elbow are obtained. Report was reviewed in its entirety. Impression by Dr. Webster shows negative right elbow exam. No fracture. Disposition Clinical Impression: Contusion of right elbow, Right shoulder strain Disposition: HOME SELF-CARE Condition: Good Instructions (If sedation given, give patient instructions): Rotator Cuff Injury (ED), Contusion in Adults (ED) Additional Instructions: Rest and ice the right arm. Perform gentle range of motion to the shoulder. Follow-up with her primary care physician for recheck as soon as possible. Return to the emergency department for any new, worsening, or concerning symptoms. Prescriptions: Ibuprofen [Motrin] 600 mg PO Q8HR PRN #30 tab PRN Reason: Pain Is patient prescribed a controlled substance at d/c from ED?: No Referrals: Yesica Hinds MD [Primary Care Provider] - 1-2 days Time of Disposition: 00:44
== END 2021-05-27 00:52 | disposition home or self-care (01) ==
LOC: EC 23:17
DX: S50.01XA Contusion of right elbow, initial encounter (principal); S46.911A Strain of unspecified muscle, fascia and tendon at shoulder and upper arm level, right arm, initial encounter; E11.9 Type 2 diabetes mellitus without complications; J45.909 Unspecified asthma, uncomplicated; K21.9 Gastro-esophageal reflux disease without esophagitis; E78.5 Hyperlipidemia, unspecified; I10 Essential (primary) hypertension; F41.9 Anxiety disorder, unspecified; F32.A Depression, unspecified; Z79.4 Long term (current) use of insulin; Z88.5 Allergy status to narcotic agent; Z90.49 Acquired absence of other specified parts of digestive tract; W00.0XXA Fall on same level due to ice and snow, initial encounter
CPT/HCPCS: 99283

== ENCOUNTER 2021-06-13 01:16 | Emergency (ER) | payer MEDICAID, OTHER ==
[2021-06-13 01:41] VITALS: TEMP 97
--- NOTE | 2021-06-13 03:14 | ED ---
Upper Extremity HPI - General Chief Complaint: Extremity Injury, Upper Stated Complaint: Right Wrist Pain Time Seen by Provider: 06/13/21 03:02 Source: patient Mode of arrival: ambulatory Limitations: no limitations - History of Present Illness Initial Comments: This patient's 41-year-old man who presents to have evaluation of right wrist. He states he has had pain going back for number weeks now. He denies an acute injury. He states that he is scheduled to have EMG for the wrist. The patient also states he is having some numbness and tingling in the distribution of the first second and third digit along the palm then also the distal portion of the posterior digits. Complaint: Injury to:: right, wrist -: week(s) Other Extremity Injury: Wrist: Right Other Injuries: none Handedness: right Place: work Improves With: none Worsens With: movement of extremity Associated Symptoms: numbness - Related Data Home Medications Medication Instructions Recorded Confirmed Pravastatin Sodium [Pravachol] 80 mg PO HS 03/24/20 05/13/21 buPROPion [Wellbutrin] 100 mg PO DAILY 03/24/20 05/13/21 Mometasone/Formoterol [Dulera 100 2 puff INHALATION RT-DAILY 05/02/20 05/13/21 Mcg-5 Mcg Inhaler] Naproxen 500 mg PO BID PRN 05/02/20 05/13/21 Albuterol Sulfate [Proair Hfa] 2 puff INHALATION RT-QID PRN 03/07/21 05/13/21 Alogliptin Benzoate [Alogliptin] 25 mg PO DAILY 05/13/21 05/13/21 Cholecalciferol [Vitamin D3 (25 25 mcg PO DAILY 05/13/21 05/13/21 Mcg = 1000 Iu)] Ibuprofen [Motrin] 800 mg PO Q8H PRN 05/13/21 05/13/21 Insulin Glargine,Hum.rec.anlog 80 unit SQ HS 05/13/21 05/13/21 [Lantus Solostar Pen] Insulin Lispro [humaLOG Kwikpen] 25 unit SQ AC-TID 05/13/21 05/13/21 Previous Rx's Medication Instructions Recorded Cyclobenzaprine [Flexeril] 10 mg PO TID PRN #12 tablet 05/13/21 Ibuprofen [Motrin] 600 mg PO Q6HR PRN #20 tab 05/13/21 Ibuprofen [Motrin] 600 mg PO Q8HR PRN #30 tab 05/27/21 Allergies Allergy/AdvReac Type Severity Reaction Status Date / Time codeine AdvReac Nausea & Verified 06/13/21 01:41 Vomiting propoxyphene napsylate AdvReac seizure Verified 06/13/21 01:41 [From Darvocet-N 100] Review of Systems ROS Statement: Those systems with pertinent positive or pertinent negative responses have been documented in the HPI. ROS Other: All systems not noted in ROS Statement are negative. Constitutional: Denies: fever, chills, weakness Musculoskeletal: Reports: arthralgia Neurological: Reports: numbness, paresthesias. Denies: weakness Past Medical History Past Medical History: Asthma, Diabetes Mellitus, GERD/Reflux, Hyperlipidemia, Hypertension, Syncope Additional Past Medical History / Comment(s): cut to left ring finger and got infection of mrsa, GALLBLADDER DISORDER, History of Any Multi-Drug Resistant Organisms: MRSA Date of last positivie culture/infection: 2007 MDRO Source:: right leg, right arm, right knee, lt ring finger Past Surgical History: Cholecystectomy, Orthopedic Surgery Additional Past Surgical History / Comment(s): Bilateral eye lasik, wisdom teeth, lt ring finger sx to remove mrsa, Past Anesthesia/Blood Transfusion Reactions: No Reported Reaction Past Psychological History: Anxiety, Depression Smoking Status: Never smoker Past Alcohol Use History: None Reported Past Drug Use History: None Reported - Past Family History Mother Family Medical History: No Reported History General Exam Limitations: no limitations General appearance: alert, in no apparent distress Respiratory exam: Present: normal lung sounds bilaterally. Absent: respiratory distress, wheezes, rales, rhonchi, stridor Cardiovascular Exam: Present: regular rate, normal rhythm, normal heart sounds. Absent: systolic murmur, diastolic murmur, rubs, gallop GI/Abdominal exam: Present: soft. Absent: distended, tenderness, guarding, rebound, rigid Extremities exam: Present: normal inspection, full ROM, tenderness, normal capillary refill Neurological exam: Present: alert. Absent: motor sensory deficit Skin exam: Present: warm, dry, intact, normal color. Absent: rash Course Vital Signs 06/13/21 06/13/21 01:37 03:33 Temperature 97 F L Pulse Rate 76 92 Respiratory 18 16 Rate Blood Pressure 123/79 132/76 O2 Sat by Pulse 99 98 Oximetry Disposition Clinical Impression: Median nerve dysfunction Disposition: HOME SELF-CARE Condition: Good Instructions (If sedation given, give patient instructions): Paresthesia (ED) Is patient prescribed a controlled substance at d/c from ED?: No Referrals: [facility],Clinic [Primary Care Provider] - 1-2 days Hector Sylvester DO [Doctor of Osteopathic Medicine] - 1-2 days
--- NOTE | 2021-06-13 03:14 | XR ---
EXAMINATION TYPE: XR wrist complete RT DATE OF EXAM: 06/13/2021 COMPARISON: 10/30/2020 HISTORY: Pain TECHNIQUE: 4 views FINDINGS: There is no sign of fracture nor dislocation. Joint spaces are normal. There are no patholo gic calcifications. Scaphoid appears normal. IMPRESSION: Normal right wrist. No change.
[2021-06-13 03:34] VITALS: BP 132/76; PULSE 92; RESP 16
== END 2021-06-13 03:33 | disposition home or self-care (01) ==
LOC: EC 01:16
DX: E11.9 Type 2 diabetes mellitus without complications (principal); G56.11 Other lesions of median nerve, right upper limb; I10 Essential (primary) hypertension; E78.5 Hyperlipidemia, unspecified; J45.909 Unspecified asthma, uncomplicated; K21.9 Gastro-esophageal reflux disease without esophagitis; F32.A Depression, unspecified; F41.9 Anxiety disorder, unspecified; Z79.4 Long term (current) use of insulin; Z79.51 Long term (current) use of inhaled steroids; Z79.899 Other long term (current) drug therapy
CPT/HCPCS: 99283

== ENCOUNTER 2021-06-17 02:44 | Emergency (ER) | payer OTHER ==
[2021-06-17 02:52] LABS: Glucose,Whole Blood 311 mg/dL (75-99)
[2021-06-17 02:53] VITALS: RESP 18; TEMP 97.1
[2021-06-17 03:00] LABS: Glucose,Whole Blood 325 mg/dL (75-99)
[2021-06-17] MEDS ORDERED: SODIUM CHLORIDE 0.9% 1,000 ML IV STA ×2 (03:06)
[2021-06-17] MEDS ORDERED: SODIUM CHLORIDE 0.9% 500 ML 500 ML IV STA (03:06)
[2021-06-17] MEDS ORDERED: INSULIN REGULAR 100 UNIT/ML VIAL (IV) IV ONE (03:07)
--- NOTE | 2021-06-17 03:08 | ED ---
Recheck HPI - General Chief Complaint: Recheck/Abnormal Lab/Rx Stated Complaint: blood sugar high Time Seen by Provider: 06/17/21 03:00 Source: patient, RN notes reviewed, old records reviewed Mode of arrival: ambulatory Limitations: no limitations - History of Present Illness Initial Comments: This is a 41-year-old male emergency department for evaluation patient presents today for elevated blood sugar decreased urinary output not feeling well week q uality. Patient denies fevers no chest pain or shortness of breath no nausea vomiting or diarrhea currently. No specific abdominal pain MD Complaint: abnormal lab (Elevated blood sugar) -: hour(s) Returns Today for: persistent/worsening pain related to initial visit Symptoms Since Prior Visit: no new symptoms, worsening pain Context: planned re-check Associated Symptoms: malaise, nausea Treatments Prior to Arrival: other medications (Home insulin) - Related Data Home Medications Medication Instructions Recorded Confirmed Pravastatin Sodium [Pravachol] 80 mg PO HS 03/24/20 05/13/21 buPROPion [Wellbutrin] 100 mg PO DAILY 03/24/20 05/13/21 Mometasone/Formoterol [Dulera 100 2 puff INHALATION RT-DAILY 05/02/20 05/13/21 Mcg-5 Mcg Inhaler] Naproxen 500 mg PO BID PRN 05/02/20 05/13/21 Albuterol Sulfate [Proair Hfa] 2 puff INHALATION RT-QID PRN 03/07/21 05/13/21 Alogliptin Benzoate [Alogliptin] 25 mg PO DAILY 05/13/21 05/13/21 Cholecalciferol [Vitamin D3 (25 25 mcg PO DAILY 05/13/21 05/13/21 Mcg = 1000 Iu)] Ibuprofen [Motrin] 800 mg PO Q8H PRN 05/13/21 05/13/21 Insulin Glargine,Hum.rec.anlog 80 unit SQ HS 05/13/21 05/13/21 [Lantus Solostar Pen] Insulin Lispro [humaLOG Kwikpen] 25 unit SQ AC-TID 05/13/21 05/13/21 Previous Rx's Medication Instructions Recorded Cyclobenzaprine [Flexeril] 10 mg PO TID PRN #12 tablet 05/13/21 Ibuprofen [Motrin] 600 mg PO Q6HR PRN #20 tab 05/13/21 Ibuprofen [Motrin] 600 mg PO Q8HR PRN #30 tab 05/27/21 Allergies Allergy/AdvReac Type Severity Reaction Status Date / Time codeine AdvReac Nausea & Verified 06/17/21 02:53 Vomiting propoxyphene napsylate AdvReac seizure Verified 06/17/21 02:53 [From Darvocet-N 100] Review of Systems ROS Statement: Those systems with pertinent positive or pertinent negative responses have been documented in the HPI. ROS Other: All systems not noted in ROS Statement are negative. Past Medical History Past Medical History: Asthma, Diabetes Mellitus, GERD/Reflux, Hyperlipidemia, Hypertension, Syncope Additional Past Medical History / Comment(s): cut to left ring finger and got infection of mrsa, GALLBLADDER DISORDER, History of Any Multi-Drug Resistant Organisms: MRSA Date of last positivie culture/infection: 2007 MDRO Source:: right leg, right arm, right knee, lt ring finger Past Surgical History: Cholecystectomy, Orthopedic Surgery Additional Past Surgical History / Comment(s): Bilateral eye lasik, wisdom teeth, lt ring finger sx to remove mrsa, Past Anesthesia/Blood Transfusion Reactions: No Reported Reaction Past Psychological History: Anxiety, Depression Smoking Status: Never smoker Past Alcohol Use History: None Reported Past Drug Use History: None Reported - Past Family History Mother Family Medical History: No Reported History General Exam Limitations: no limitations General appearance: alert, in no apparent distress Head exam: Present: atraumatic, normocephalic, normal inspection Eye exam: Present: normal appearance, PERRL, EOMI. Absent: scleral icterus, conjunctival injection, periorbital swelling ENT exam: Present: normal exam, mucous membranes moist Neck exam: Present: normal inspection. Absent: tenderness, meningismus, lymphadenopathy Respiratory exam: Present: normal lung sounds bilaterally. Absent: respiratory distress, wheezes, rales, rhonchi, stridor Cardiovascular Exam: Present: regular rate, normal rhythm, normal heart sounds. Absent: systolic murmur, diastolic murmur, rubs, gallop, clicks GI/Abdominal exam: Present: soft, normal bowel sounds. Absent: distended, tenderness, guarding, rebound, rigid Extremities exam: Present: normal inspection, full ROM, normal capillary refill. Absent: tenderness, pedal edema, joint swelling, calf tenderness Back exam: Present: normal inspection Neurological exam: Present: alert, oriented X3, CN II-XII intact Psychiatric exam: Present: normal affect, normal mood Skin exam: Present: warm, dry, intact, normal color. Absent: rash Course Vital Signs 06/17/21 02:48 Temperature 97.1 F L Pulse Rate 75 Respiratory 18 Rate Blood Pressure 130/85 O2 Sat by Pulse 98 Oximetry - Reevaluation(s) Reevaluation #1: 06/17/21 03:08 Medical records reviewed Reevaluation #2: 06/17/21 05:13 Patient informed results and questions answered Reevaluation #3: 06/17/21 05:13 Patient feels improved here in the ER Medical Decision Making - Medical Decision Making 41 male to the emergency department for evaluation patient is for elevated blood sugar decreased urination dehydration, patient lab values are checking out normal patient can be discharged home - Lab Data Result diagrams: 06/17/21 04:00 06/17/21 04:00 Lab Results 06/17/21 06/17/21 06/17/21 Range/Units 02:50 02:58 04:00 WBC 6.8 (3.8-10.6) k/uL RBC 4.83 (4.30-5.90) m/uL Hgb 15.3 (13.0-17.5) gm/dL Hct 43.8 (39.0-53.0) % MCV 90.7 (80.0-100.0) fL MCH 31.6 (25.0-35.0) pg MCHC 34.9 (31.0-37.0) g/dL RDW 12.5 (11.5-15.5) % Plt Count 219 (150-450) k/uL MPV 9.5 Neutrophils % 49 % Lymphocytes % 40 % Monocytes % 6 % Eosinophils % 2 % Basophils % 1 % Neutrophils # 3.4 (1.3-7.7) k/uL Lymphocytes # 2.7 (1.0-4.8) k/uL Monocytes # 0.4 (0-1.0) k/uL Eosinophils # 0.2 (0-0.7) k/uL Basophils # 0.1 (0-0.2) k/uL Sodium (137-145) mmol/L Potassium (3.5-5.1) mmol/L Chloride (98-107) mmol/L Carbon Dioxide (22-30) mmol/L Anion Gap mmol/L BUN (9-20) mg/dL Creatinine (0.66-1.25) mg/dL Est GFR (CKD-EPI)AfAm (>60 ml/min/1.73 sqM) Est GFR (CKD-EPI)NonAf (>60 ml/min/1.73 sqM) Glucose (74-99) mg/dL POC Glucose (mg/dL) 311 H 325 H (75-99) mg/dL POC Glu Logging Equipment Operator ID Lexie, Alyx Petersen Calcium (8.4-10.2) mg/dL Phosphorus (2.5-4.5) mg/dL Magnesium (1.6-2.3) mg/dL Total Bilirubin (0.2-1.3) mg/dL AST (17-59) U/L ALT (4-49) U/L Alkaline Phosphatase (38-126) U/L Troponin I (0.000-0.034) ng/mL Total Protein (6.3-8.2) g/dL Albumin (3.5-5.0) g/dL Urine Color Urine Appearance (Clear) Urine pH (5.0-8.0) Ur Specific Newborn (1.001-1.035) Urine Protein (Negative) Urine Glucose (UA) (Negative) Urine Ketones (Negative) Urine Blood (Negative) Urine Nitrite (Negative) Urine Bilirubin (Negative) Urine Urobilinogen (<2.0) mg/dL Ur Leukocyte Esterase (Negative) Acetone, Qual (Negative) 06/17/21 06/17/21 06/17/21 Range/Units 04:00 04:00 04:00 WBC (3.8-10.6) k/uL RBC (4.30-5.90) m/uL Hgb (13.0-17.5) gm/dL Hct (39.0-53.0) % MCV (80.0-100.0) fL MCH (25.0-35.0) pg MCHC (31.0-37.0) g/dL RDW (11.5-15.5) % Plt Count (150-450) k/uL MPV Neutrophils % % Lymphocytes % % Monocytes % % Eosinophils % % Basophils % % Neutrophils # (1.3-7.7) k/uL Lymphocytes # (1.0-4.8) k/uL Monocytes # (0-1.0) k/uL Eosinophils # (0-0.7) k/uL Basophils # (0-0.2) k/uL Sodium 136 L (137-145) mmol/L Potassium 4.5 (3.5-5.1) mmol/L Chloride 103 (98-107) mmol/L Carbon Dioxide 27 (22-30) mmol/L Anion Gap 6 mmol/L BUN 13 (9-20) mg/dL Creatinine 0.71 (0.66-1.25) mg/dL Est GFR (CKD-EPI)AfAm >90 (>60 ml/min/1.73 sqM) Est GFR (CKD-EPI)NonAf >90 (>60 ml/min/1.73 sqM) Glucose 320 H (74-99) mg/dL POC Glucose (mg/dL) (75-99) mg/dL POC Glu Logging Equipment Operator ID Calcium 9.0 (8.4-10.2) mg/dL Phosphorus 3.5 (2.5-4.5) mg/dL Magnesium 1.7 (1.6-2.3) mg/dL Total Bilirubin 0.6 (0.2-1.3) mg/dL AST 23 (17-59) U/L ALT 29 (4-49) U/L Alkaline Phosphatase 70 (38-126) U/L Troponin I <0.012 (0.000-0.034) ng/mL Total Protein 6.4 (6.3-8.2) g/dL Albumin 3.9 (3.5-5.0) g/dL Urine Color Light Yellow Urine Appearance Clear (Clear) Urine pH 5.0 (5.0-8.0) Ur Specific Newborn 1.034 (1.001-1.035) Urine Protein Negative (Negative) Urine Glucose (UA) 4+ H (Negative) Urine Ketones Negative (Negative) Urine Blood Negative (Negative) Urine Nitrite Negative (Negative) Urine Bilirubin Negative (Negative) Urine Urobilinogen <2.0 (<2.0) mg/dL Ur Leukocyte Esterase Negative (Negative) Acetone, Qual Negative (Negative) 06/17/21 Range/Units 04:54 WBC (3.8-10.6) k/uL RBC (4.30-5.90) m/uL Hgb (13.0-17.5) gm/dL Hct (39.0-53.0) % MCV (80.0-100.0) fL MCH (25.0-35.0) pg MCHC (31.0-37.0) g/dL RDW (11.5-15.5) % Plt Count (150-450) k/uL MPV Neutrophils % % Lymphocytes % % Monocytes % % Eosinophils % % Basophils % % Neutrophils # (1.3-7.7) k/uL Lymphocytes # (1.0-4.8) k/uL Monocytes # (0-1.0) k/uL Eosinophils # (0-0.7) k/uL Basophils # (0-0.2) k/uL Sodium (137-145) mmol/L Potassium (3.5-5.1) mmol/L Chloride (98-107) mmol/L Carbon Dioxide (22-30) mmol/L Anion Gap mmol/L BUN (9-20) mg/dL Creatinine (0.66-1.25) mg/dL Est GFR (CKD-EPI)AfAm (>60 ml/min/1.73 sqM) Est GFR (CKD-EPI)NonAf (>60 ml/min/1.73 sqM) Glucose (74-99) mg/dL POC Glucose (mg/dL) 247 H (75-99) mg/dL POC Glu Logging Equipment Operator ID Andriy, Lindsey Calcium (8.4-10.2) mg/dL Phosphorus (2.5-4.5) mg/dL Magnesium (1.6-2.3) mg/dL Total Bilirubin (0.2-1.3) mg/dL AST (17-59) U/L ALT (4-49) U/L Alkaline Phosphatase (38-126) U/L Troponin I (0.000-0.034) ng/mL Total Protein (6.3-8.2) g/dL Albumin (3.5-5.0) g/dL Urine Color Urine Appearance (Clear) Urine pH (5.0-8.0) Ur Specific Newborn (1.001-1.035) Urine Protein (Negative) Urine Glucose (UA) (Negative) Urine Ketones (Negative) Urine Blood (Negative) Urine Nitrite (Negative) Urine Bilirubin (Negative) Urine Urobilinogen (<2.0) mg/dL Ur Leukocyte Esterase (Negative) Acetone, Qual (Negative) - EKG Data -: EKG Interpreted by Me (EKG sinus rhythm 67 [place] 179 QRS 114 QTc 40 to) Disposition Clinical Impression: Hyperglycemia Disposition: HOME SELF-CARE Condition: Good Instructions (If sedation given, give patient instructions): Diabetic Hyperglycemia (ED) Is patient prescribed a controlled substance at d/c from ED?: No Referrals: [facility],Clinic [Primary Care Provider] - 1-2 days
[2021-06-17 04:11] LABS: Basophils # (A) 0.1 k/uL (0-0.2); Basophils % (A) 1 %; Eosinophils # (A) 0.2 k/uL (0-0.7); Eosinophils % (A) 2 %; HCT 43.8 % (39.0-53.0); HGB 15.3 gm/dL (13.0-17.5); Lymphocytes # (A) 2.7 k/uL (1.0-4.8); Lymphocytes % (A) 40 %; MCH 31.6 pg (25.0-35.0); MCHC 34.9 g/dL (31.0-37.0); MCV 90.7 fL (80.0-100.0); Mean Platelet Volume 9.5; Monocytes # (A) 0.4 k/uL (0-1.0); Monocytes % (A) 6 %; Neutrophils # (A) 3.4 k/uL (1.3-7.7); Neutrophils % (A) 49 %; Platelet Count 219 k/uL (150-450); RBC 4.83 m/uL (4.30-5.90); RDW 12.5 % (11.5-15.5); WBC 6.8 k/uL (3.8-10.6)
[2021-06-17 04:25] LABS: Appearance,Urine Clear (Clear); Bilirubin,Urine Negative (Negative); Blood,Urine Negative (Negative); Color,Urine Light Yellow; Glucose,Urine (UA) 4+ (Negative); Ketones,Urine Negative (Negative); Leukocyte Esterase,Urine Negative (Negative); Nitrite,Urine Negative (Negative); Protein,Urine Negative (Negative); Specific Gravity,Urine 1.034 (1.001-1.035); Urobilinogen,Urine <2.0 mg/dL (<2.0)
[2021-06-17 04:38] LABS: Sodium 136 mmol/L (137-145)
[2021-06-17 04:39] LABS: ALT 29 U/L (4-49); AST 23 U/L (17-59); African American GFR (CKD) >90 (>60 ml/min/1.73 sqM); Albumin 3.9 g/dL (3.5-5.0); Alkaline Phosphatase 70 U/L (38-126); Anion Gap 6 mmol/L; Blood Urea Nitrogen 13 mg/dL (9-20); Carbon Dioxide 27 mmol/L (22-30); Chloride 103 mmol/L (98-107); Glucose 320 mg/dL (74-99); Magnesium 1.7 mg/dL (1.6-2.3); Non-African American GFR(CKD) >90 (>60 ml/min/1.73 sqM); Phosphorus 3.5 mg/dL (2.5-4.5); Potassium 4.5 mmol/L (3.5-5.1); Total Bilirubin 0.6 mg/dL (0.2-1.3); Total Protein 6.4 g/dL (6.3-8.2)
[2021-06-17 04:56] LABS: Glucose,Whole Blood 247 mg/dL (75-99)
[2021-06-17 05:30] VITALS: BP 143/89; PULSE 74
== END 2021-06-17 05:30 | disposition home or self-care (01) ==
LOC: EC 02:44
DX: E11.65 Type 2 diabetes mellitus with hyperglycemia (principal); I10 Essential (primary) hypertension; E78.5 Hyperlipidemia, unspecified; J45.909 Unspecified asthma, uncomplicated; K21.9 Gastro-esophageal reflux disease without esophagitis; F32.A Depression, unspecified; F41.9 Anxiety disorder, unspecified; Z79.4 Long term (current) use of insulin; Z79.51 Long term (current) use of inhaled steroids; Z79.1 Long term (current) use of non-steroidal anti-inflammatories (NSAID); Z79.899 Other long term (current) drug therapy
CPT/HCPCS: 36415; 80053; 81003; 82009; 83735; 84100; 84484; 85025; 93005; 96361; 96374; 99283

== ENCOUNTER 2021-12-30 05:32 | Emergency (ER) | payer BC, OTHER ==
[2021-12-30 05:47] VITALS: RESP 18; TEMP 98.1
[2021-12-30] MEDS ORDERED: LIDOCAINE VISCOUS 2% 15 ML CUP MUCOUS MEM ONE (08:21)
[2021-12-30] MEDS ORDERED: dexAMETHasone 2 MG TAB PO STA (08:21)
[2021-12-30] MEDS ORDERED: KETOROLAC 15 MG/ML 1 ML VIAL IM STA (08:22)
[2021-12-30 08:46] VITALS: BP 143/93; PULSE 81
--- NOTE | 2021-12-30 08:51 | ED ---
ENT HPI - General Chief complaint: ENT Stated complaint: Sore Throat Time Seen by Provider: 12/30/21 07:15 Source: patient Mode of arrival: ambulatory Limitations: no limitations - History of Present Illness Initial comments: 41-year-old male presents to the emergency room with reported sore throat. Started this morning when he awoke. States it's difficult to swallow. He has been using Chloraseptic spray without any improvement. Denies any difficulty breathing. No fevers. No cough, shortness of breath or chest pain. No nausea, vomiting or diarrhea. Patient was vaccinated as a kid. No other alleviating, precipitating or modifying factors - Related Data Home Medications Medication Instructions Recorded Confirmed Pravastatin Sodium [Pravachol] 80 mg PO HS 03/24/20 08/28/21 buPROPion [Wellbutrin] 100 mg PO DAILY 03/24/20 08/28/21 Mometasone/Formoterol [Dulera 100 2 puff INHALATION RT-DAILY 05/02/20 08/28/21 Mcg-5 Mcg Inhaler] Naproxen 500 mg PO BID PRN 05/02/20 08/28/21 Albuterol Sulfate [Proair Hfa] 2 puff INHALATION RT-QID PRN 03/07/21 08/28/21 Cholecalciferol [Vitamin D3 (25 50 mcg PO DAILY 05/13/21 08/28/21 Mcg = 1000 Iu)] Insulin Glargine,Hum.rec.anlog 80 unit SQ HS 05/13/21 08/28/21 [Lantus Solostar Pen] Dextrose Chew [Glucose Chew Tab] 12 gm PO ONCE PRN 08/28/21 08/28/21 Insulin Aspart [NovoLOG Flexpen] 25 - 30 units SQ AC-TID 08/28/21 08/28/21 Previous Rx's Medication Instructions Recorded predniSONE [Deltasone] 20 mg PO BID #10 tab 12/30/21 Allergies Allergy/AdvReac Type Severity Reaction Status Date / Time codeine AdvReac Nausea & Verified 12/30/21 05:47 Vomiting propoxyphene napsylate AdvReac seizure Verified 12/30/21 05:47 [From Staciet-N 100] Review of Systems ROS Statement: Those systems with pertinent positive or pertinent negative responses have been documented in the HPI. ROS Other: All systems not noted in ROS Statement are negative. Past Medical History Past Medical History: Asthma, Diabetes Mellitus, GERD/Reflux, Hyperlipidemia, Hypertension, Syncope Additional Past Medical History / Comment(s): cut to left ring finger and got infection of mrsa, GALLBLADDER DISORDER, History of Any Multi-Drug Resistant Organisms: MRSA Date of last positivie culture/infection: 2007 MDRO Source:: right leg, right arm, right knee, lt ring finger Past Surgical History: Cholecystectomy, Orthopedic Surgery Additional Past Surgical History / Comment(s): Bilateral eye lasik, wisdom teeth, lt ring finger sx to remove mrsa, Past Anesthesia/Blood Transfusion Reactions: No Reported Reaction Past Psychological History: Anxiety, Depression Smoking Status: Never smoker Past Alcohol Use History: None Reported Past Drug Use History: None Reported - Past Family History Mother Family Medical History: No Reported History General Exam Limitations: no limitations General appearance: alert, in no apparent distress Head exam: Present: atraumatic, normocephalic, normal inspection Eye exam: Present: normal appearance, PERRL, EOMI. Absent: scleral icterus, conjunctival injection, periorbital swelling ENT exam: Present: mucous membranes moist, other (posterior pharynx is erythematous. tonsils 3+ no peritonsillar abscess. uvula is edematous. no drooling, trismus, hoarseness or stridor) Neck exam: Present: normal inspection. Absent: tenderness, meningismus, lymphadenopathy Respiratory exam: Present: normal lung sounds bilaterally. Absent: respiratory distress, wheezes, rales, rhonchi, stridor Cardiovascular Exam: Present: regular rate, normal rhythm, normal heart sounds. Absent: systolic murmur, diastolic murmur, rubs, gallop, clicks GI/Abdominal exam: Present: soft, normal bowel sounds. Absent: distended, tenderness, guarding, rebound, rigid Extremities exam: Present: normal inspection, full ROM, normal capillary refill. Absent: tenderness, pedal edema, joint swelling, calf tenderness Back exam: Present: normal inspection Neurological exam: Present: alert, oriented X3, CN II-XII intact Psychiatric exam: Present: normal affect, normal mood Skin exam: Present: warm, dry, intact, normal color. Absent: rash Course Vital Signs 12/30/21 12/30/21 05:45 08:45 Temperature 98.1 F Pulse Rate 101 H 81 Respiratory 18 18 Rate Blood Pressure 159/104 143/93 O2 Sat by Pulse 97 99 Oximetry Medical Decision Making - Medical Decision Making Upon arrival patient was placed into room 20. There are history and physical exam was performed. Patient is swabbed for covert and strep. Clinical exam does not demonstrate any signs of Christiano's, peritonsillar abscess. Airway is patent. Patient given a dose of Toradol, Viscous Lidocaine and Decadron. Patient will be discharged home on steroids. Instructed to follow-up with his doctor in 2-4 days return for any new or worsening symptoms. Patient understood was discharged home in stable condition - Lab Data Lab Results 12/30/21 12/30/21 Range/Units 05:47 08:06 Coronavirus (PCR) Not Detected (Not Detectd) Group A Strep Rapid Negative (Negative) Disposition Clinical Impression: Acute viral pharyngitis Disposition: HOME SELF-CARE Condition: Stable Instructions (If sedation given, give patient instructions): Pharyngitis (ED) Additional Instructions: Take the steroids as directed. Use the Chloraseptic spray as directed. Follow- up with your primary care in 2-4 days and return for any new or worsening symptoms to include increased difficulty of swallowing or fever Prescriptions: predniSONE [Deltasone] 20 mg PO BID #10 tab Is patient prescribed a controlled substance at d/c from ED?: No Referrals: [facility],Clinic [Primary Care Provider] - 1-2 days Time of Disposition: 08:50
== END 2021-12-30 09:18 | disposition home or self-care (01) ==
LOC: EC 05:32
DX: J02.9 Acute pharyngitis, unspecified (principal); J45.909 Unspecified asthma, uncomplicated; E11.9 Type 2 diabetes mellitus without complications; K21.9 Gastro-esophageal reflux disease without esophagitis; E78.5 Hyperlipidemia, unspecified; I10 Essential (primary) hypertension; F41.9 Anxiety disorder, unspecified; F32.A Depression, unspecified; Z88.5 Allergy status to narcotic agent; Z79.4 Long term (current) use of insulin; Z79.51 Long term (current) use of inhaled steroids; Z79.899 Other long term (current) drug therapy; Z20.822 Contact with and (suspected) exposure to COVID-19
CPT/HCPCS: 87081; 87430; 87635; 99283; 96372; J8540; J1885

== ENCOUNTER 2022-01-23 04:40 | Emergency (ER) | payer OTHER | END 2022-01-23 06:05 | disposition home or self-care (01) | LOC: EC 04:40 → MERGE 04:40 → EC 06:05 | DX: L02.11 Cutaneous abscess of neck (principal) | CPT/HCPCS: 99283 ==

== ENCOUNTER 2022-03-14 01:24 | Emergency (ER) | payer BC, OTHER ==
[2022-03-14 01:29] VITALS: BP 137/102; PULSE 113; RESP 20; TEMP 97.7
[2022-03-14 01:45] LABS: Glucose,Whole Blood 66 mg/dL (70-110)
[2022-03-14] MEDS ORDERED: PANTOPRAZOLE 40 MG/10 ML VIAL IV STA (01:52)
[2022-03-14] MEDS ORDERED: SODIUM CHLORIDE 0.9% 1,000 ML IV STA ×2 (01:52)
[2022-03-14] MEDS ORDERED: ONDANSETRON 4 MG/2 ML VIAL IVP STA (01:52)
[2022-03-14] MEDS ORDERED: SODIUM CHLORIDE 0.9% 500 ML 500 ML IV STA (01:52)
--- NOTE | 2022-03-14 01:53 | ED ---
Nausea/Vomiting/Diarrhea HPI - General Chief complaint: Nausea/Vomiting/Diarrhea Stated complaint: Vomiting Time Seen by Provider: 03/14/22 01:51 Source: patient, RN notes reviewed, old records reviewed Mode of arrival: ambulatory Limitations: no limitations - History of Present Illness Initial comments: This is a 41-year-old male to the emergency department for evaluation of not feeling well persistent nausea vomiting abdominal pain no bowel movements 5 days weakness. Low blood sugar at home decreased appetite and vomiting tonight. No fevers. Patient did recently had blood sugar medication. No other complaints MD complaint: nausea, vomiting, abdominal pain -: days(s) Description of Vomiting: food contents Description of Diarrhea: water Associated Abdominal Pain: Yes Location: diffuse Radiation: none Severity: moderate Severity scale (1-10): 4 Quality: cramping Consistency: intermittent Improves with: none Worsens with: none Context: possible food poisoning, sick contacts Associated Symptoms: myalgias, loss of appetite, malaise, nausea/vomiting, weakness - Related Data Home Medications Medication Instructions Recorded Confirmed Pravastatin Sodium [Pravachol] 80 mg PO HS 03/24/20 08/28/21 buPROPion [Wellbutrin] 100 mg PO DAILY 03/24/20 08/28/21 Mometasone/Formoterol [Dulera 100 2 puff INHALATION RT-DAILY 05/02/20 08/28/21 Mcg-5 Mcg Inhaler] Naproxen 500 mg PO BID PRN 05/02/20 08/28/21 Albuterol Sulfate [Proair Hfa] 2 puff INHALATION RT-QID PRN 03/07/21 08/28/21 Cholecalciferol [Vitamin D3 (25 50 mcg PO DAILY 05/13/21 08/28/21 Mcg = 1000 Iu)] Insulin Glargine,Hum.rec.anlog 80 unit SQ HS 05/13/21 08/28/21 [Lantus Solostar Pen] Dextrose Chew [Glucose Chew Tab] 12 gm PO ONCE PRN 08/28/21 08/28/21 Insulin Aspart [NovoLOG Flexpen] 25 - 30 units SQ AC-TID 08/28/21 08/28/21 Previous Rx's Medication Instructions Recorded predniSONE [Deltasone] 20 mg PO BID #10 tab 12/30/21 Allergies Allergy/AdvReac Type Severity Reaction Status Date / Time codeine AdvReac Nausea & Verified 03/14/22 01:29 Vomiting propoxyphene napsylate AdvReac seizure Verified 03/14/22 01:29 [From Stacie-N 100] Review of Systems ROS Statement: Those systems with pertinent positive or pertinent negative responses have been documented in the HPI. ROS Other: All systems not noted in ROS Statement are negative. Past Medical History Past Medical History: Asthma, Diabetes Mellitus, GERD/Reflux, Hyperlipidemia, Hypertension, Syncope Additional Past Medical History / Comment(s): cut to left ring finger and got infection of mrsa, GALLBLADDER DISORDER, History of Any Multi-Drug Resistant Organisms: MRSA Date of last positivie culture/infection: 2007 MDRO Source:: right leg, right arm, right knee, lt ring finger Past Surgical History: Cholecystectomy, Orthopedic Surgery Additional Past Surgical History / Comment(s): Bilateral eye lasik, wisdom teeth, lt ring finger sx to remove mrsa, Past Anesthesia/Blood Transfusion Reactions: No Reported Reaction Past Psychological History: Anxiety, Depression Smoking Status: Never smoker Past Alcohol Use History: None Reported Past Drug Use History: None Reported - Past Family History Mother Family Medical History: No Reported History General Exam Limitations: no limitations General appearance: alert, in no apparent distress Head exam: Present: atraumatic, normocephalic, normal inspection Eye exam: Present: normal appearance, PERRL, EOMI. Absent: scleral icterus, conjunctival injection, periorbital swelling ENT exam: Present: normal exam, mucous membranes dry Neck exam: Present: normal inspection. Absent: tenderness, meningismus, lymphadenopathy Respiratory exam: Present: normal lung sounds bilaterally. Absent: respiratory distress, wheezes, rales, rhonchi, stridor Cardiovascular Exam: Present: normal rhythm, tachycardia, normal heart sounds. Absent: systolic murmur, diastolic murmur, rubs, gallop, clicks GI/Abdominal exam: Present: soft, normal bowel sounds. Absent: distended, te nderness, guarding, rebound, rigid Extremities exam: Present: normal inspection, full ROM, normal capillary refill. Absent: tenderness, pedal edema, joint swelling, calf tenderness Back exam: Present: normal inspection Neurological exam: Present: alert, oriented X3, CN II-XII intact Psychiatric exam: Present: normal affect, normal mood Skin exam: Present: warm, dry, intact, normal color. Absent: rash Course Vital Signs 03/14/22 01:26 Temperature 97.7 F Pulse Rate 113 H Respiratory 20 Rate Blood Pressure 137/102 O2 Sat by Pulse 97 Oximetry - Reevaluation(s) Reevaluation #1: 03/14/22 03:27 Medical records reviewed Reevaluation #2: 03/14/22 03:28 Patient symptoms are improving Reevaluation #3: 03/14/22 03:57 Informed results and questions answered Medical Decision Making - Medical Decision Making 39 female DF for evaluation. Patient Dese for evaluation of low blood sugar abdominal pain and nausea and vomiting. Blood sugars been seeing abnormal level here patient only when he gets home feeling improved and would imaging is negative patient can be discharged - Lab Data Result diagrams: 03/14/22 02:03 03/14/22 02:03 Lab Results 03/14/22 03/14/22 03/14/22 Range/Units 01:39 02:03 02:03 WBC 11.7 H (3.8-10.6) k/uL RBC 5.74 (4.30-5.90) m/uL Hgb 17.7 H (13.0-17.5) gm/dL Hct 49.8 (39.0-53.0) % MCV 86.8 (80.0-100.0) fL MCH 30.8 (25.0-35.0) pg MCHC 35.4 (31.0-37.0) g/dL RDW 12.8 (11.5-15.5) % Plt Count 287 (150-450) k/uL MPV 9.8 Neutrophils % (Manual) 59 % Lymphocytes % (Manual) 35 % Monocytes % (Manual) 4 % Eosinophils % (Manual) 2 % Neutrophils # (Manual) 6.90 (1.3-7.7) k/uL Lymphocytes # (Manual) 4.10 (1.0-4.8) k/uL Monocytes # (Manual) 0.47 (0-1.0) k/uL Eosinophils # (Manual) 0.23 (0-0.7) k/uL Nucleated RBCs 0 (0-0) /100 WBC Manual Slide Review Performed PT 10.7 (9.0-12.0) sec INR 1.0 (<1.2) APTT 25.1 (22.0-30.0) sec Sodium (137-145) mmol/L Potassium (3.5-5.1) mmol/L Chloride (98-107) mmol/L Carbon Dioxide (22-30) mmol/L Anion Gap mmol/L BUN (9-20) mg/dL Creatinine (0.66-1.25) mg/dL Est GFR (CKD-EPI)AfAm (>60 ml/min/1.73 sqM) Est GFR (CKD-EPI)NonAf (>60 ml/min/1.73 sqM) Glucose (74-99) mg/dL POC Glucose (mg/dL) 66 L (70-110) mg/dL POC Glu Automatic Spinning Lathe Setter ID Russell Faust Plasma Lactic Acid Rafael (0.7-2.0) mmol/L Calcium (8.4-10.2) mg/dL Phosphorus (2.5-4.5) mg/dL Magnesium (1.6-2.3) mg/dL Total Bilirubin (0.2-1.3) mg/dL AST (17-59) U/L ALT (4-49) U/L Alkaline Phosphatase (38-126) U/L Troponin I (0.000-0.034) ng/mL NT-Pro-B Natriuret Pep pg/mL Total Protein (6.3-8.2) g/dL Albumin (3.5-5.0) g/dL 03/14/22 03/14/22 03/14/22 Range/Units 02:03 02:03 02:03 WBC (3.8-10.6) k/uL RBC (4.30-5.90) m/uL Hgb (13.0-17.5) gm/dL Hct (39.0-53.0) % MCV (80.0-100.0) fL MCH (25.0-35.0) pg MCHC (31.0-37.0) g/dL RDW (11.5-15.5) % Plt Count (150-450) k/uL MPV Neutrophils % (Manual) % Lymphocytes % (Manual) % Monocytes % (Manual) % Eosinophils % (Manual) % Neutrophils # (Manual) (1.3-7.7) k/uL Lymphocytes # (Manual) (1.0-4.8) k/uL Monocytes # (Manual) (0-1.0) k/uL Eosinophils # (Manual) (0-0.7) k/uL Nucleated RBCs (0-0) /100 WBC Manual Slide Review PT (9.0-12.0) sec INR (<1.2) APTT (22.0-30.0) sec Sodium 138 (137-145) mmol/L Potassium 4.2 (3.5-5.1) mmol/L Chloride 102 (98-107) mmol/L Carbon Dioxide 24 (22-30) mmol/L Anion Gap 12 mmol/L BUN 21 H (9-20) mg/dL Creatinine 0.94 (0.66-1.25) mg/dL Est GFR (CKD-EPI)AfAm >90 (>60 ml/min/1.73 sqM) Est GFR (CKD-EPI)NonAf >90 (>60 ml/min/1.73 sqM) Glucose 81 (74-99) mg/dL POC Glucose (mg/dL) (70-110) mg/dL POC Glu Automatic Spinning Lathe Setter ID Plasma Lactic Acid Rafael 1.7 (0.7-2.0) mmol/L Calcium 9.7 (8.4-10.2) mg/dL Phosphorus 4.2 (2.5-4.5) mg/dL Magnesium 1.9 (1.6-2.3) mg/dL Total Bilirubin 1.0 (0.2-1.3) mg/dL AST 48 (17-59) U/L ALT 71 H (4-49) U/L Alkaline Phosphatase 76 (38-126) U/L Troponin I <0.012 (0.000-0.034) ng/mL NT-Pro-B Natriuret Pep pg/mL Total Protein 8.2 (6.3-8.2) g/dL Albumin 5.1 H (3.5-5.0) g/dL 03/14/22 Range/Units 02:03 WBC (3.8-10.6) k/uL RBC (4.30-5.90) m/uL Hgb (13.0-17.5) gm/dL Hct (39.0-53.0) % MCV (80.0-100.0) fL MCH (25.0-35.0) pg MCHC (31.0-37.0) g/dL RDW (11.5-15.5) % Plt Count (150-450) k/uL MPV Neutrophils % (Manual) % Lymphocytes % (Manual) % Monocytes % (Manual) % Eosinophils % (Manual) % Neutrophils # (Manual) (1.3-7.7) k/uL Lymphocytes # (Manual) (1.0-4.8) k/uL Monocytes # (Manual) (0-1.0) k/uL Eosinophils # (Manual) (0-0.7) k/uL Nucleated RBCs (0-0) /100 WBC Manual Slide Review PT (9.0-12.0) sec INR (<1.2) APTT (22.0-30.0) sec Sodium (137-145) mmol/L Potassium (3.5-5.1) mmol/L Chloride (98-107) mmol/L Carbon Dioxide (22-30) mmol/L Anion Gap mmol/L BUN (9-20) mg/dL Creatinine (0.66-1.25) mg/dL Est GFR (CKD-EPI)AfAm (>60 ml/min/1.73 sqM) Est GFR (CKD-EPI)NonAf (>60 ml/min/1.73 sqM) Glucose (74-99) mg/dL POC Glucose (mg/dL) (70-110) mg/dL POC Glu Automatic Spinning Lathe Setter ID Plasma Lactic Acid Rafael (0.7-2.0) mmol/L Calcium (8.4-10.2) mg/dL Phosphorus (2.5-4.5) mg/dL Magnesium (1.6-2.3) mg/dL Total Bilirubin (0.2-1.3) mg/dL AST (17-59) U/L ALT (4-49) U/L Alkaline Phosphatase (38-126) U/L Troponin I (0.000-0.034) ng/mL NT-Pro-B Natriuret Pep 16 pg/mL Total Protein (6.3-8.2) g/dL Albumin (3.5-5.0) g/dL - EKG Data -: EKG Interpreted by Me (EKG is sinus 99 TX 137 QRS 17 QTc 412) - Radiology Data Radiology results: report reviewed (Chest x-ray CT abdomen and pelvis negative for acute disease), image reviewed Disposition Clinical Impression: Dehydration, Gastroenteritis Disposition: HOME SELF-CARE Condition: Good Instructions (If sedation given, give patient instructions): Acute Nausea and V omiting (ED) Is patient prescribed a controlled substance at d/c from ED?: No Referrals: [facility],Clinic [Primary Care Provider] - 1-2 days Time of Disposition: 04:00
[2022-03-14 02:18] LABS: HCT 49.8 % (39.0-53.0); HGB 17.7 gm/dL (13.0-17.5); MCH 30.8 pg (25.0-35.0); MCHC 35.4 g/dL (31.0-37.0); MCV 86.8 fL (80.0-100.0); Mean Platelet Volume 9.8; Platelet Count 287 k/uL (150-450); RBC 5.74 m/uL (4.30-5.90); RDW 12.8 % (11.5-15.5); WBC 11.7 k/uL (3.8-10.6)
[2022-03-14 02:28] LABS: ALT 71 U/L (4-49); AST 48 U/L (17-59); African American GFR (CKD) >90 (>60 ml/min/1.73 sqM); Albumin 5.1 g/dL (3.5-5.0); Alkaline Phosphatase 76 U/L (38-126); Anion Gap 12 mmol/L; Blood Urea Nitrogen 21 mg/dL (9-20); Calcium 9.7 mg/dL (8.4-10.2); Carbon Dioxide 24 mmol/L (22-30); Chloride 102 mmol/L (98-107); Glucose 81 mg/dL (74-99); Magnesium 1.9 mg/dL (1.6-2.3); Non-African American GFR(CKD) >90 (>60 ml/min/1.73 sqM); Phosphorus 4.2 mg/dL (2.5-4.5); Sodium 138 mmol/L (137-145); Total Protein 8.2 g/dL (6.3-8.2)
[2022-03-14 02:42] LABS: Potassium 4.2 mmol/L (3.5-5.1)
--- NOTE | 2022-03-14 02:58 | XR ---
EXAMINATION TYPE: XR chest 2V DATE OF EXAM: 03/14/2022 COMPARISON: 05/20/2020 HISTORY: Weakness TECHNIQUE: FINDINGS: Heart and mediastinum are normal. Lungs are clear. Diaphragm is normal. Bony thorax is inta ct. IMPRESSION: Normal chest. No adverse change. IMPRESSION:
[2022-03-14 03:01] LABS: Eosinophils # (M) 0.23 k/uL (0-0.7); Monocytes # (M) 0.47 k/uL (0-1.0); Neutrophils % (M) 59 %; Nucleated Red Blood Cells 0 /100 WBC (0-0); Total Cells Counted 100
[2022-03-14] MEDS ORDERED: diphenhydrAMINE 50 MG/ML 1 ML VIAL IVP STA (03:05)
[2022-03-14] MEDS ORDERED: METOCLOPRAMIDE 5 MG/ML 2 ML VIAL IVP STA (03:05)
[2022-03-14 03:08] LABS: Partial Thromboplastin Time 25.1 sec (22.0-30.0); Prothrombin Time 10.7 sec (9.0-12.0)
--- NOTE | 2022-03-14 03:40 | CT ---
EXAMINATION TYPE: CT abdomen pelvis wo con DATE OF EXAM: 03/14/2022 COMPARISON: 06/25/2020 HISTORY: nausea, bloating and vomiting CT DLP: mGycm Automated exposure control for dose reduction was used. Images obtained from the diaphragm to the floor of the pelvis without contrast. The lung bases are clear. No pleural effusion. Heart size is normal. No pericardial effusion. Liver i s intact. No evidence of a splenic mass. There is no pancreatic mass. The stomach is intact. Gallblad migue appears absent. The bile ducts are not dilated. There is no adrenal mass. Kidneys show normal size and contour. No hydronephrosis. The ureters are no t dilated. No retroperitoneal adenopathy. Appendix is inferior and appears normal. The bladder distends smoothly. No inguinal hernia. No free fluid in the pelvis. No pelvic mass. There is no mesenteric edema. No ascites or free air. No sign of a bowel obstruction. The lumbar vert ebrae have normal spacing and alignment. Posterior elements are intact. No compression fracture. The bony pelvis is intact. The hip joints are intact. IMPRESSION: Negative CT scan of the abdomen and pelvis. Normal appendix. No renal stone or obstruction. No advers e change.
== END 2022-03-14 04:20 | disposition home or self-care (01) ==
LOC: EC 01:24
DX: K52.9 Noninfective gastroenteritis and colitis, unspecified (principal); E86.0 Dehydration; F32.A Depression, unspecified; F41.9 Anxiety disorder, unspecified; E11.9 Type 2 diabetes mellitus without complications; K21.9 Gastro-esophageal reflux disease without esophagitis; E78.5 Hyperlipidemia, unspecified; I10 Essential (primary) hypertension; J45.909 Unspecified asthma, uncomplicated; Z88.5 Allergy status to narcotic agent; Z88.8 Allergy status to other drugs, medicaments and biological substances; Z79.4 Long term (current) use of insulin; Z79.899 Other long term (current) drug therapy
CPT/HCPCS: 36415; 93005; 83880; 80053; 83605; 83735; 84100; 84484; 85025; 85610; 85730; 71046; 74176; 99285; 96374; 96375; 96361; J1200; J2765; J2405; C9113

== ENCOUNTER 2022-07-24 22:43 | Emergency (ER) | payer OTHER ==
[2022-07-24 22:53] VITALS: RESP 18; TEMP 97.8
[2022-07-24 22:57] LABS: Glucose,Whole Blood 84 mg/dL (70-110)
[2022-07-25 01:02] LABS: Glucose,Whole Blood 169 mg/dL (70-110)
[2022-07-25] MEDS ORDERED: ONDANSETRON 4 MG/2 ML VIAL IVP STA (01:08)
[2022-07-25 01:28] LABS: Basophils # (A) 0.1 k/uL (0-0.2); Basophils % (A) 1 %; Eosinophils # (A) 0.3 k/uL (0-0.7); Eosinophils % (A) 2 %; HCT 48.4 % (39.0-53.0); HGB 17.1 gm/dL (13.0-17.5); Lymphocytes # (A) 2.8 k/uL (1.0-4.8); Lymphocytes % (A) 24 %; MCH 30.5 pg (25.0-35.0); MCHC 35.2 g/dL (31.0-37.0); MCV 86.5 fL (80.0-100.0); Mean Platelet Volume 10.3; Monocytes # (A) 0.6 k/uL (0-1.0); Monocytes % (A) 5 %; Neutrophils # (A) 7.5 k/uL (1.3-7.7); Neutrophils % (A) 66 %; Platelet Count 233 k/uL (150-450); WBC 11.4 k/uL (3.8-10.6)
[2022-07-25 02:02] LABS: ALT 50 U/L (4-49); AST 32 U/L (17-59); African American GFR (CKD) >90 (>60 ml/min/1.73 sqM); Albumin 4.4 g/dL (3.5-5.0); Alkaline Phosphatase 82 U/L (38-126); Anion Gap 6 mmol/L; Blood Urea Nitrogen 15 mg/dL (9-20); Calcium 9.7 mg/dL (8.4-10.2); Carbon Dioxide 35 mmol/L (22-30); Chloride 97 mmol/L (98-107); Glucose 88 mg/dL (74-99); Non-African American GFR(CKD) 86 (>60 ml/min/1.73 sqM); Potassium 4.4 mmol/L (3.5-5.1); Sodium 138 mmol/L (137-145); Total Bilirubin 0.7 mg/dL (0.2-1.3); Total Protein 7.3 g/dL (6.3-8.2)
--- NOTE | 2022-07-25 02:28 | ED ---
Recheck HPI - General Chief Complaint: Recheck/Abnormal Lab/Rx Stated Complaint: Low Blood Sugar 40 Time Seen by Provider: 07/25/22 00:50 Source: patient, RN notes reviewed Mode of arrival: wheelchair Limitations: no limitations - History of Present Illness Initial Comments: Patient is a 42-year-old male presenting to the emergency room with concerns regarding hypoglycemia and weakness. Initially he believes that he took his insulin around 6:30 in the evening and then developed episodes of hypoglycemia around 10 PM however upon further evaluation he relates that he took his insulin around 8:30. He has a decacom, intact with glucose trends showing a decreased glucose level starting around 945 and continuously dropping to a low of 40s with associated lethargy. He did drink orange juice and utilize glucose tablets with some improvement in glucose levels as he was 86 upon arrival to the emergency room however he reports no improvement in his symptoms. He denies any previous episodes of hypoglycemia. He reports the insulin that he took was according to a sliding scale and was 35 units of NovoLog. He denies taking any long-acting insulin. He reports some nausea without vomiting. He denies any other complaints or concerns including any chest pain, shortness of breath, abdominal pain, headache, dizziness, focal neurological deficits, fevers or chills. In addition to his type 2 diabetes he has a past medical history significant for hypertension, hyperlipidemia, GERD, and asthma. - Related Data Home Medications Medication Instructions Recorded Confirmed Pravastatin Sodium [Pravachol] 80 mg PO HS 03/24/20 08/28/21 buPROPion [Wellbutrin] 100 mg PO DAILY 03/24/20 08/28/21 Mometasone/Formoterol [Dulera 100 2 puff INHALATION RT-DAILY 05/02/20 08/28/21 Mcg-5 Mcg Inhaler] Naproxen 500 mg PO BID PRN 05/02/20 08/28/21 Albuterol Sulfate [Proair Hfa] 2 puff INHALATION RT-QID PRN 03/07/21 08/28/21 Cholecalciferol [Vitamin D3 (25 50 mcg PO DAILY 05/13/21 08/28/21 Mcg = 1000 Iu)] Insulin Glargine,Hum.rec.anlog 80 unit SQ HS 05/13/21 08/28/21 [Lantus Solostar Pen] Dextrose Chew [Glucose Chew Tab] 12 gm PO ONCE PRN 08/28/21 08/28/21 Insulin Aspart [NovoLOG Flexpen] 25 - 30 units SQ AC-TID 08/28/21 08/28/21 Previous Rx's Medication Instructions Recorded predniSONE [Deltasone] 20 mg PO BID #10 tab 12/30/21 Allergies Allergy/AdvReac Type Severity Reaction Status Date / Time codeine AdvReac Nausea & Verified 03/14/22 01:29 Vomiting propoxyphene napsylate AdvReac seizure Verified 03/14/22 01:29 [From Darcet-N 100] Review of Systems ROS Statement: Those systems with pertinent positive or pertinent negative responses have been documented in the HPI. ROS Other: All systems not noted in ROS Statement are negative. Past Medical History Past Medical History: Asthma, Diabetes Mellitus, GERD/Reflux, Hyperlipidemia, Hypertension, Syncope History of Any Multi-Drug Resistant Organisms: MRSA Date of last positivie culture/infection: 2007 MDRO Source:: right leg, right arm, right knee, lt ring finger Past Surgical History: Cholecystectomy, Orthopedic Surgery Additional Past Surgical History / Comment(s): Bilateral eye lasik, wisdom teeth, lt ring finger sx to remove mrsa, Past Anesthesia/Blood Transfusion Reactions: No Reported Reaction Past Psychological History: Anxiety, Depression Smoking Status: Never smoker Past Alcohol Use History: None Reported Past Drug Use History: None Reported - Past Family History Mother Family Medical History: No Reported History General Exam - General Exam Comments Initial Comments: GENERAL: No acute distress, well developed, well nourished. HEENT: Normocephalic, atraumatic. Pupils equal, round, reactive to light. Moist mucous membranes. LUNGS: No respiratory distress. Clear to auscultation, no adventitious sounds, no use of accessory muscles. HEART: Regular rate and rhythm without murmur, rub, or gallop. ABDOMEN: Normal bowel sounds. Soft, non-tender, non-distended. BACK: Normal inspection. EXTREMITIES: No edema. No tenderness. Moves all extremities. NEUROLOGIC: Alert & oriented x 3. CN II-XII grossly intact. PSYCHIATRIC: Normal affect and behavior. DERMATOLOGIC: Skin intact, without rashes or lesions noted. Limitations: no limitations Course Vital Signs 07/24/22 07/25/22 22:50 02:47 Temperature 97.8 F Pulse Rate 109 H 98 Respiratory 18 18 Rate Blood Pressure 127/83 126/97 O2 Sat by Pulse 97 97 Oximetry Medical Decision Making - Medical Decision Making Was pt. sent in by a medical professional or institution (, NILO, DISCHARGE SPECIALIST, urgent care, hospital, or fci...) When possible be specific @ -No Did you speak to anyone other than the patient for history (EMS, parent, family, police, friend...)? What history was obtained from this source @ -No Did you review nursing and triage notes (agree or disagree)? Why? @ -I reviewed and agree with nursing and triage notes, except upon further recollection patient reveals insulin taken approximately 8:30 not 6:30 has triage note states. Were old charts reviewed (outside hosp., previous admission, EMS record, old EKG, old radiological studies, urgent care reports/EKG's, fci records)? Report findings @ -No old charts were reviewed Differential Diagnosis (chest pain, altered mental status, abdominal pain women, abdominal pain men, vaginal bleeding, weakness, fever, dyspnea, syncope, headache, dizziness, GI bleed, back pain, seizure, CVA, palpatations, mental health, musculoskeletal)? @ -Differential Weakness: Hypoglycemia, shock, sepsis, hyponatremia, anemia, infection, LA, ETOH, adverse medicine reaction, overdose, stroke, this is not meant to be an all-inclusive list. EKG interpreted by me (3pts min.). @ -None done X-rays interpreted by me (1pt min.). @ -None done CT interpreted by me (1pt min.). @ -None done U/S interpreted by me (1pt. min.). @ -None done What testing was considered but not performed or refused? (CT, X-rays, U/S, labs)? Why? @ -None What meds were considered but not given or refused? Why? @ -None Did you discuss the management of the patient with other professionals (professionals i.e. , NILO, DISCHARGE SPECIALIST, lab, RT, psych nurse, medical social consultant, shale planer operator, teacher, security officer supervisor, returned case inspector)? Give summary @ -No Was smoking cessation discussed for >3mins.? @ -No Was critical care preformed (if so, how long)? @ -No Were there social determinants of health that impacted care today? How? (Homelessness, low income, unemployed, alcoholism, drug addiction, transportation, low edu. Level, literacy, decrease access to med. care, half-way, rehab)? @ -No Was there de-escalation of care discussed even if they declined (Discuss DNR or withdrawal of care, Hospice)? DNR status @ -No What co-morbidities impacted this encounter? (DM, HTN, Smoking, COPD, CAD, Cancer, CVA, ARF, Chemo, Hep., AIDS, mental health diagnosis, sleep apnea, morbid obesity)? @ -None Was patient admitted / discharged? Hospital course, mention meds given and route, prescriptions, significant lab abnormalities, going to OR and other pertinent info. @ - 42-year-old male presenting to the emergency room with concerns regarding hypoglycemia and weakness. Initially he believes that he took his insulin around 6:30 in the evening and then developed episodes of hypoglycemia around 10 PM however upon further evaluation he relates that he took his insulin around 8:30. He has a decacom, intact with glucose trends showing a decreased glucose level starting around 945 and continuously dropping to a low of 40s with associated lethargy. No focal neurological deficits and known etiology of subhash rgy will defer diagnostic imaging. Will obtain laboratory studies m CBC, CMP and monitor glucose levels closely. Given glucose levels are now 87 will continue to monitor and defer any further glucose of ministration at this time. Nausea worsened Zofran given for nausea with improvement in symptoms. Laboratory studies overall stable, CBC demonstrates slightly elevated WBC 11.4 with normal differential. CMP chloride level low 97 carbon dioxide level high at 35 no other electrolyte abnormalities renal function normal ALTs slightly elevated at 50 AST bilirubin and alkaline phosphatase all normal. Glucose levels continue to remain stable. Last glucose check reveals glucose level at 169. No indication for further diagnostic imaging or laboratory studies. Above results discussed with patient. Encouraged close follow-up with primary care provider and chemist intern for further titration of insulin. Glucose tablet refill offered and declined. Questions and concerns answered. Return parameters to the emergency room discussed. Will discharge home in stable condition with continue close monitoring of glucose levels for hypoglycemia and type II diabetic advising follow-up with primary care provider and chemist intern. Undiagnosed new problem with uncertain prognosis? @ -No Drug Therapy requiring intensive monitoring for toxicity (Heparin, Nitro, Insulin, Cardizem)? @ -No Were any procedures done? @ -No Diagnosis/symptom? @ -Hypoglycemia in a type II diabetic Acute, or Chronic, or Acute on Chronic? @ -Acute Uncomplicated (without systemic symptoms) or Complicated (systemic symptoms)? @ -Uncomplicated Side effects of treatment? @ -No Exacerbation, Progression, or Severe Exacerbation? @ -No Poses a threat to life or bodily function? How? (Chest pain, USA, LA, pneumonia, PE, COPD, DKA, ARF, appy, cholecystitis, CVA, Diverticulitis, Homicidal, Suicidal, threat to staff... and all critical care pts) @ -No Case discussed with Dr. Lux - Lab Data Result diagrams: 07/25/22 00:04 07/25/22 00:04 Lab Results 07/24/22 07/25/22 07/25/22 Range/Units 22:49 00:04 00:04 WBC 11.4 H (3.8-10.6) k/uL RBC 5.60 (4.30-5.90) m/uL Hgb 17.1 (13.0-17.5) gm/dL Hct 48.4 (39.0-53.0) % MCV 86.5 (80.0-100.0) fL MCH 30.5 (25.0-35.0) pg MCHC 35.2 (31.0-37.0) g/dL RDW 13.0 (11.5-15.5) % Plt Count 233 (150-450) k/uL MPV 10.3 Neutrophils % 66 % Lymphocytes % 24 % Monocytes % 5 % Eosinophils % 2 % Basophils % 1 % Neutrophils # 7.5 (1.3-7.7) k/uL Lymphocytes # 2.8 (1.0-4.8) k/uL Monocytes # 0.6 (0-1.0) k/uL Eosinophils # 0.3 (0-0.7) k/uL Basophils # 0.1 (0-0.2) k/uL Sodium 138 (137-145) mmol/L Potassium 4.4 (3.5-5.1) mmol/L Chloride 97 L (98-107) mmol/L Carbon Dioxide 35 H (22-30) mmol/L Anion Gap 6 mmol/L BUN 15 (9-20) mg/dL Creatinine 1.06 (0.66-1.25) mg/dL Est GFR (CKD-EPI)AfAm >90 (>60 ml/min/1.73 sqM) Est GFR (CKD-EPI)NonAf 86 (>60 ml/min/1.73 sqM) Glucose 88 (74-99) mg/dL POC Glucose (mg/dL) 84 (70-110) mg/dL POC Glu Certified Respiratory Therapist ID Russell Faust Calcium 9.7 (8.4-10.2) mg/dL Total Bilirubin 0.7 (0.2-1.3) mg/dL AST 32 (17-59) U/L ALT 50 H (4-49) U/L Alkaline Phosphatase 82 (38-126) U/L Total Protein 7.3 (6.3-8.2) g/dL Albumin 4.4 (3.5-5.0) g/dL 07/25/22 Range/Units 00:50 WBC (3.8-10.6) k/uL RBC (4.30-5.90) m/uL Hgb (13.0-17.5) gm/dL Hct (39.0-53.0) % MCV (80.0-100.0) fL MCH (25.0-35.0) pg MCHC (31.0-37.0) g/dL RDW (11.5-15.5) % Plt Count (150-450) k/uL MPV Neutrophils % % Lymphocytes % % Monocytes % % Eosinophils % % Basophils % % Neutrophils # (1.3-7.7) k/uL Lymphocytes # (1.0-4.8) k/uL Monocytes # (0-1.0) k/uL Eosinophils # (0-0.7) k/uL Basophils # (0-0.2) k/uL Sodium (137-145) mmol/L Potassium (3.5-5.1) mmol/L Chloride (98-107) mmol/L Carbon Dioxide (22-30) mmol/L Anion Gap mmol/L BUN (9-20) mg/dL Creatinine (0.66-1.25) mg/dL Est GFR (CKD-EPI)AfAm (>60 ml/min/1.73 sqM) Est GFR (CKD-EPI)NonAf (>60 ml/min/1.73 sqM) Glucose (74-99) mg/dL POC Glucose (mg/dL) 169 H (70-110) mg/dL POC Glu Certified Respiratory Therapist ZACH Twila Campos Calcium (8.4-10.2) mg/dL Total Bilirubin (0.2-1.3) mg/dL AST (17-59) U/L ALT (4-49) U/L Alkaline Phosphatase (38-126) U/L Total Protein (6.3-8.2) g/dL Albumin (3.5-5.0) g/dL Disposition Clinical Impression: Hypoglycemia due to type 2 diabetes mellitus Disposition: HOME SELF-CARE Condition: Stable Instructions (If sedation given, give patient instructions): Hypoglycemia in a Person with Diabetes (ED) Additional Instructions: Please follow-up with your prosthodontist/educator and primary care provider regarding her insulin regimen. Please continue to monitor your blood sugars closely. Please return to the Emergency Department if symptoms worsen or any other concerns. Is patient prescribed a controlled substance at d/c from ED?: No Referrals: [facility],Clinic [Primary Care Provider] - 1-2 days Time of Disposition: 02:28
[2022-07-25 02:51] VITALS: BP 126/97; PULSE 98
== END 2022-07-25 02:50 | disposition home or self-care (01) ==
LOC: EC 22:43
DX: E11.649 Type 2 diabetes mellitus with hypoglycemia without coma (principal); I10 Essential (primary) hypertension; J45.909 Unspecified asthma, uncomplicated; E78.5 Hyperlipidemia, unspecified; F32.A Depression, unspecified; F41.9 Anxiety disorder, unspecified; Z79.4 Long term (current) use of insulin; Z79.51 Long term (current) use of inhaled steroids; Z79.899 Other long term (current) drug therapy; Z88.6 Allergy status to analgesic agent; Z88.8 Allergy status to other drugs, medicaments and biological substances
CPT/HCPCS: 36415; 80053; 85025; 99284; 96374; J2405

== ENCOUNTER 2023-08-10 11:14 | Emergency (ER) | payer OTHER ==
[2023-08-10 11:39] LABS: Glucose,Whole Blood 399 mg/dL (70-110)
--- NOTE | 2023-08-10 12:10 | ED ---
Recheck HPI - General Chief Complaint: Recheck/Abnormal Lab/Rx Stated Complaint: Hyperglycemic Time Seen by Provider: 08/10/23 11:34 Source: patient, RN notes reviewed Mode of arrival: ambulatory Limitations: no limitations - History of Present Illness Initial Comments: 43-year-old male with history of type 2 diabetes with insulin resistance presenting for hyperglycemia. States this morning his blood glucose was 406. He gave himself 10 units of insulin and blood glucose increased to 450. He is currently experiencing some brain fog, mild headache, fatigue but denies abdominal pain, vomiting, diarrhea, chest pain. States he takes NovoLog and Bubba tus daily for diabetes and is compliant with these medications. States he ate a sugary pasty this morning. Other health conditions include depression and GERD. Denies kidney issues or CHF. - Related Data Home Medications Medication Instructions Recorded Confirmed Pravastatin Sodium [Pravachol] 80 mg PO HS 03/24/20 08/28/21 buPROPion [Wellbutrin] 100 mg PO DAILY 03/24/20 08/28/21 Mometasone/Formoterol [Dulera 100 2 puff INHALATION RT-DAILY 05/02/20 08/28/21 Mcg-5 Mcg Inhaler] Naproxen 500 mg PO BID PRN 05/02/20 08/28/21 Albuterol Sulfate [Proair Hfa] 2 puff INHALATION RT-QID PRN 03/07/21 08/28/21 Cholecalciferol [Vitamin D3 (25 50 mcg PO DAILY 05/13/21 08/28/21 Mcg = 1000 Iu)] Insulin Glargine,Hum.rec.anlog 80 unit SQ HS 05/13/21 08/28/21 [Lantus Solostar Pen] Dextrose Chew [Glucose Chew Tab] 12 gm PO ONCE PRN 08/28/21 08/28/21 Insulin Aspart [NovoLOG Flexpen] 25 - 30 units SQ AC-TID 08/28/21 08/28/21 Previous Rx's Medication Instructions Recorded predniSONE [Deltasone] 20 mg PO BID #10 tab 12/30/21 Allergies Allergy/AdvReac Type Severity Reaction Status Date / Time codeine AdvReac Nausea & Verified 08/10/23 11:35 Vomiting propoxyphene napsylate AdvReac seizure Verified 08/10/23 11:35 [From Darvocet-N 100] Review of Systems ROS Statement: Those systems with pertinent positive or pertinent negative responses have been documented in the HPI. ROS Other: All systems not noted in ROS Statement are negative. Past Medical History Past Medical History: Asthma, Diabetes Mellitus, GERD/Reflux, Hyperlipidemia, Hypertension, Syncope Additional Past Medical History / Comment(s): cut to left ring finger and got infection of mrsa, GALLBLADDER DISORDER, History of Any Multi-Drug Resistant Organisms: MRSA Date of last positivie culture/infection: 2007 MDRO Source:: right leg, right arm, right knee, lt ring finger Past Surgical History: Cholecystectomy, Orthopedic Surgery Additional Past Surgical History / Comment(s): Bilateral eye lasik, wisdom teeth, lt ring finger sx to remove mrsa, Past Anesthesia/Blood Transfusion Reactions: No Reported Reaction Past Psychological History: Anxiety, Depression Smoking Status: Former smoker Past Alcohol Use History: None Reported Past Drug Use History: None Reported - Past Family History Mother Family Medical History: No Reported History General Exam Limitations: no limitations General appearance: alert, in no apparent distress Head exam: Present: atraumatic, normocephalic, normal inspection Eye exam: Present: normal appearance, PERRL, EOMI. Absent: scleral icterus, conjunctival injection, periorbital swelling ENT exam: Present: normal exam, mucous membranes moist Neck exam: Present: normal inspection. Absent: tenderness, meningismus, lymphadenopathy Respiratory exam: Present: normal lung sounds bilaterally. Absent: respiratory distress, wheezes, rales, rhonchi, stridor Cardiovascular Exam: Present: regular rate, normal rhythm, normal heart sounds. Absent: systolic murmur, diastolic murmur, rubs, gallop, clicks GI/Abdominal exam: Present: soft, normal bowel sounds. Absent: distended, te nderness, guarding, rebound, rigid Neurological exam: Present: alert, oriented X3, CN II-XII intact Psychiatric exam: Present: normal affect, normal mood Skin exam: Present: warm, dry, intact, normal color. Absent: rash Course Vital Signs 08/10/23 11:31 Temperature 97.8 F Pulse Rate 90 Respiratory 18 Rate Blood Pressure 123/82 O2 Sat by Pulse 97 Oximetry Medical Decision Making - Medical Decision Making Was pt. sent in by a medical professional or institution (, PA, [employer], urgent care, hospital, or [facility]...) When possible be specific @ -[No] Did you speak to anyone other than the patient for history (EMS, parent, family, police, friend...)? What history was obtained from this source @ -[No] Did you review nursing and triage notes (agree or disagree)? Why? @ -[I reviewed and agree with nursing and triage notes] Were old charts reviewed (outside hosp., previous admission, EMS record, old EKG, old radiological studies, urgent care reports/EKG's, [facility] records)? Report findings @ -[No old charts were reviewed] Differential Diagnosis (chest pain, altered mental status, abdominal pain women, abdominal pain men, vaginal bleeding, weakness, fever, dyspnea, syncope, headache, dizziness, GI bleed, back pain, seizure, CVA, palpatations, mental health, musculoskeletal)? @ -Diabetic ketoacidosis, hyperglycemia, dehydration, cardiac arrhythmia EKG interpreted by me (3pts min.). @ -As above X-rays interpreted by me (1pt min.). @ -[None done] CT interpreted by me (1pt min.). @ -[None done] U/S interpreted by me (1pt. min.). @ -[None done] What testing was considered but not performed or refused? (CT, X-rays, U/S, labs)? Why? @ -[None] What meds were considered but not given or refused? Why? @ -[None] Did you discuss the management of the patient with other professionals ( professionals i.e. , PA, [employer], lab, RT, psych nurse, public health social worker, global program director, teacher, special forces officer, leather case finisher)? Give summary @ -[No] Was smoking cessation discussed for >3mins.? @ -[No] Was critical care preformed (if so, how long)? @ -[No] Were there social determinants of health that impacted care today? How? (Homelessness, low income, unemployed, alcoholism, drug addiction, transportation, low edu. Level, literacy, decrease access to med. care, alf, rehab)? @ -[No] Was there de-escalation of care discussed even if they declined (Discuss DNR or withdrawal of care, Hospice)? DNR status @ -[No] What co-morbidities impacted this encounter? (DM, HTN, Smoking, COPD, CAD, Cancer, CVA, ARF, Chemo, Hep., AIDS, mental health diagnosis, sleep apnea, morbid obesity)? @ -DM 2 Was patient admitted / discharged? Hospital course, mention meds given and route, prescriptions, significant lab abnormalities, going to OR and other pertinent info. @ -Patient was discharged. Patient was seen and evaluated for hyperglycemia. Patient is having no alarm symptoms. Vital signs and physical examination are unremarkable. Patient reports glucose at home of 450. Blood glucose was 399 in triage. Patient was given 2 L of IV fluids. Lab work was unremarkable. Glucose was 298 per patient prior to discharge. Discussed with patient diagnosis of hyperglycemic episode. Strict return symptoms discussed with patient and patient showed understanding and agreed. Patient discharged in stable condition. Case discussed with Dr. Beverly Undiagnosed new problem with uncertain prognosis? @ -[No] Drug Therapy requiring intensive monitoring for toxicity (Heparin, Nitro, Insulin, Cardizem)? @ -[No] Were any procedures done? @ -[No] Diagnosis/symptom? @ -Acute hyperglycemia Acute, or Chronic, or Acute on Chronic? @ -Acute Uncomplicated (without systemic symptoms) or Complicated (systemic symptoms)? @ -Complicated Side effects of treatment? @ -[No] Exacerbation, Progression, or Severe Exacerbation? @ -[No] Poses a threat to life or bodily function? How? (Chest pain, [place], [place], pneumonia, PE, COPD, DKA, ARF, appy, cholecystitis, CVA, Diverticulitis, Homicidal, Suicidal, threat to staff... and all critical care pts) @ -Yes - Lab Data Result diagrams: 08/10/23 12:17 08/10/23 12:17 Lab Results 08/10/23 08/10/23 08/10/23 Range/Units 11:37 12:17 12:17 WBC 8.0 (3.8-10.6) k/uL RBC 5.27 (4.30-5.90) m/uL Hgb 16.4 (13.0-17.5) gm/dL Hct 48.5 (39.0-53.0) % MCV 92.0 (80.0-100.0) fL MCH 31.1 (25.0-35.0) pg MCHC 33.7 (31.0-37.0) g/dL RDW 13.1 (11.5-15.5) % Plt Count 229 (150-450) k/uL MPV 10.6 Neutrophils % 58 % Lymphocytes % 32 % Monocytes % 6 % Eosinophils % 2 % Basophils % 1 % Neutrophils # 4.6 (1.3-7.7) k/uL Lymphocytes # 2.6 (1.0-4.8) k/uL Monocytes # 0.5 (0-1.0) k/uL Eosinophils # 0.2 (0-0.7) k/uL Basophils # 0.1 (0-0.2) k/uL VBG pH (7.31-7.41) VBG pCO2 (37-51) mmHg VBG HCO3 (24-28) mmol/L Sodium 138 (137-145) mmol/L Potassium 5.0 (3.5-5.1) mmol/L Chloride 100 (98-107) mmol/L Carbon Dioxide 31 H (22-30) mmol/L Anion Gap 7 mmol/L BUN 17 (9-20) mg/dL Creatinine 1.04 (0.66-1.25) mg/dL Est GFR (CKD-EPI)AfAm >90 (>60 ml/min/1.73 sqM) Est GFR (CKD-EPI)NonAf 87 (>60 ml/min/1.73 sqM) Glucose 379 H (74-99) mg/dL POC Glucose (mg/dL) 399 H (70-110) mg/dL POC Glu Basket Machine Operator ID Ross Whitt Plasma Lactic Acid Rafael (0.7-2.0) mmol/L Calcium 9.7 (8.4-10.2) mg/dL Total Bilirubin 0.5 (0.2-1.3) mg/dL AST 35 (17-59) U/L ALT 58 H (4-49) U/L Alkaline Phosphatase 79 (38-126) U/L Total Protein 7.1 (6.3-8.2) g/dL Albumin 4.4 (3.5-5.0) g/dL Urine Color Urine Appearance (Clear) Urine pH (5.0-8.0) Ur Specific [place] (1.001-1.035) Urine Protein (Negative) Urine Glucose (UA) (Negative) Urine Ketones (Negative) Urine Blood (Negative) Urine Nitrite (Negative) Urine Bilirubin (Negative) Urine Urobilinogen (<2.0) mg/dL Ur Leukocyte Esterase (Negative) Acetone, Qual Negative (Negative) 08/10/23 08/10/23 08/10/23 Range/Units 12:17 12:23 13:30 WBC (3.8-10.6) k/uL RBC (4.30-5.90) m/uL Hgb (13.0-17.5) gm/dL Hct (39.0-53.0) % MCV (80.0-100.0) fL MCH (25.0-35.0) pg MCHC (31.0-37.0) g/dL RDW (11.5-15.5) % Plt Count (150-450) k/uL MPV Neutrophils % % Lymphocytes % % Monocytes % % Eosinophils % % Basophils % % Neutrophils # (1.3-7.7) k/uL Lymphocytes # (1.0-4.8) k/uL Monocytes # (0-1.0) k/uL Eosinophils # (0-0.7) k/uL Basophils # (0-0.2) k/uL VBG pH 7.42 H (7.31-7.41) VBG pCO2 43 (37-51) mmHg VBG HCO3 28 (24-28) mmol/L Sodium (137-145) mmol/L Potassium (3.5-5.1) mmol/L Chloride (98-107) mmol/L Carbon Dioxide (22-30) mmol/L Anion Gap mmol/L BUN (9-20) mg/dL Creatinine (0.66-1.25) mg/dL Est GFR (CKD-EPI)AfAm (>60 ml/min/1.73 sqM) Est GFR (CKD-EPI)NonAf (>60 ml/min/1.73 sqM) Glucose (74-99) mg/dL POC Glucose (mg/dL) (70-110) mg/dL POC Glu Basket Machine Operator ID Plasma Lactic Acid Rafael 1.6 (0.7-2.0) mmol/L Calcium (8.4-10.2) mg/dL Total Bilirubin (0.2-1.3) mg/dL AST (17-59) U/L ALT (4-49) U/L Alkaline Phosphatase (38-126) U/L Total Protein (6.3-8.2) g/dL Albumin (3.5-5.0) g/dL Urine Color Colorless Urine Appearance Clear (Clear) Urine pH 7.0 (5.0-8.0) Ur Specific [place] 1.026 (1.001-1.035) Urine Protein Negative (Negative) Urine Glucose (UA) 4+ H (Negative) Urine Ketones Negative (Negative) Urine Blood Negative (Negative) Urine Nitrite Negative (Negative) Urine Bilirubin Negative (Negative) Urine Urobilinogen <2.0 (<2.0) mg/dL Ur Leukocyte Esterase Negative (Negative) Acetone, Qual (Negative) - EKG Data -: EKG Interpreted by Me EKG Comments: EKG reveals normal sinus rhythm with no ST changes. Ventricular rate 71 bpm, IL interval 161, QRS duration 114, QT/QTc 381/403 Disposition Clinical Impression: Hyperglycemia Disposition: HOME SELF-CARE Condition: Stable Instructions (If sedation given, give patient instructions): Diabetic Hyperglycemia (ED) Additional Instructions: Please follow-up with PCP within the week. Please return to the Emergency Department if symptoms worsen or any other concerns. Is patient prescribed a controlled substance at d/c from ED?: No Referrals: [facility],Clinic [Primary Care Provider] - 1-2 days Time of Disposition: 14:10
[2023-08-10] MEDS: SODIUM CHLORIDE 0.9% 2,000 ML IV STA (12:11)
[2023-08-10 12:26] LABS: Basophils # (A) 0.1 k/uL (0-0.2); Basophils % (A) 1 %; Eosinophils # (A) 0.2 k/uL (0-0.7); Eosinophils % (A) 2 %; HCT 48.5 % (39.0-53.0); HGB 16.4 gm/dL (13.0-17.5); Lymphocytes # (A) 2.6 k/uL (1.0-4.8); Lymphocytes % (A) 32 %; MCH 31.1 pg (25.0-35.0); MCHC 33.7 g/dL (31.0-37.0); Mean Platelet Volume 10.6; Monocytes # (A) 0.5 k/uL (0-1.0); Monocytes % (A) 6 %; Neutrophils # (A) 4.6 k/uL (1.3-7.7); Neutrophils % (A) 58 %; Platelet Count 229 k/uL (150-450); RBC 5.27 m/uL (4.30-5.90); RDW 13.1 % (11.5-15.5)
[2023-08-10 12:34] VITALS: RESP 18; TEMP 97.8
[2023-08-10 12:38] LABS: VBG PH 7.42 (7.31-7.41)
[2023-08-10 12:44] LABS: ALT 58 U/L (4-49); AST 35 U/L (17-59); African American GFR (CKD) >90 (>60 ml/min/1.73 sqM); Albumin 4.4 g/dL (3.5-5.0); Alkaline Phosphatase 79 U/L (38-126); Anion Gap 7 mmol/L; Blood Urea Nitrogen 17 mg/dL (9-20); Calcium 9.7 mg/dL (8.4-10.2); Carbon Dioxide 31 mmol/L (22-30); Chloride 100 mmol/L (98-107); Glucose 379 mg/dL (74-99); Non-African American GFR(CKD) 87 (>60 ml/min/1.73 sqM); Sodium 138 mmol/L (137-145); Total Bilirubin 0.5 mg/dL (0.2-1.3); Total Protein 7.1 g/dL (6.3-8.2)
[2023-08-10 13:48] LABS: Appearance,Urine Clear (Clear); Bilirubin,Urine Negative (Negative); Blood,Urine Negative (Negative); Color,Urine Colorless; Glucose,Urine (UA) 4+ (Negative); Ketones,Urine Negative (Negative); Leukocyte Esterase,Urine Negative (Negative); Nitrite,Urine Negative (Negative); Protein,Urine Negative (Negative); Specific Gravity,Urine 1.026 (1.001-1.035); Urobilinogen,Urine <2.0 mg/dL (<2.0)
[2023-08-10 14:46] VITALS: BP 134/84; PULSE 74
== END 2023-08-10 14:51 | disposition home or self-care (01) ==
LOC: EC 11:14
DX: E11.65 Type 2 diabetes mellitus with hyperglycemia (principal); Z87.891 Personal history of nicotine dependence; Z79.4 Long term (current) use of insulin; Z88.5 Allergy status to narcotic agent; Z88.8 Allergy status to other drugs, medicaments and biological substances
CPT/HCPCS: 36415; 80053; 81003; 82009; 82803; 83605; 85025; 93005; 96360; 96361; 99283

== ENCOUNTER 2024-07-21 09:30 | Day surgery (SDC) | payer OTHER ==
[2024-07-19 15:49] VITALS: BMI 32.3
[2024-07-21] MEDS: IV FLUID CONTINUATION 1,000 ML IV ONE (09:58)
[2024-07-21 10:06] VITALS: RESP 18; TEMP 97.9
[2024-07-21] MEDS: LACTATED RINGERS 1,000 ML IV SCH (10:08)
[2024-07-21 10:16] LABS: Glucose,Whole Blood 128 mg/dL (70-110)
[2024-07-21] MEDS ORDERED: PROPOFOL 10 MG/ML 20 ML VIAL IV ONE (10:26)
--- NOTE | 2024-07-21 10:42 | P.PCN ---
Date of Procedure: 07/21/24 Procedure(s) Performed: BRIEF HISTORY: Patient is a 44-year-old pleasant white male scheduled for an elective colonoscopy as a part of screening for colon cancer. PROCEDURE PERFORMED: Colonoscopy. PREOPERATIVE DIAGNOSIS: Screening for colon cancer. IV sedation per Anesthesia. PROCEDURE: After informed consent was obtained, the patient, was brought into the endoscopy unit. IV sedation was administered by Anesthesia under continuous monitoring. Digital rectal examination was normal. Initially the Olympus CF-160 flexible video colonoscope was then inserted in the rectum, gradually advanced into the cecum without any difficulty. Careful examination was performed as the scope was gradually being withdrawn. Ileocecal valve and the appendiceal orifice were visualized and appeared normal. Prep was excellent. Mucosa of the cecum, ascending colon, transverse colon, descending colon, sigmoid colon, and rectum appeared normal. Retroflexion was performed in the rectum and no lesions were seen. The patient tolerated the procedure well. IMPRESSION: Normal-appearing colon from rectum to cecum with no evidence of colorectal neoplasia. RECOMMENDATIONS: Findings of this examination were discussed with the patient as well as his family. He was advised to have repeat screening colonoscopy in 10 years
[2024-07-21 10:50] LABS: Glucose,Whole Blood 125 mg/dL (70-110)
[2024-07-21 11:06] VITALS: BP 154/87; PULSE 100
== END 2024-07-21 11:18 | disposition home or self-care (01) ==
LOC: ORWHC2ENDO 09:30
PROVIDERS: ATTEND Internal Medicine Gastroenterology
DX: Z12.11 Encounter for screening for malignant neoplasm of colon (principal); I10 Essential (primary) hypertension; E11.9 Type 2 diabetes mellitus without complications; E78.5 Hyperlipidemia, unspecified; J45.20 Mild intermittent asthma, uncomplicated; F41.9 Anxiety disorder, unspecified; F32.A Depression, unspecified; Z79.84 Long term (current) use of oral hypoglycemic drugs; Z79.85 Long-term (current) use of injectable non-insulin antidiabetic drugs; Z79.4 Long term (current) use of insulin; Z79.899 Other long term (current) drug therapy; Z88.5 Allergy status to narcotic agent; Z88.8 Allergy status to other drugs, medicaments and biological substances
CPT/HCPCS: 45378; J2704